=== PATIENT | female | born 1930 | race Caucasian/White ===

== ENCOUNTER → 2017-07-19 | Outpatient (CLI) | payer MEDICARE ==
[2017-07-23 19:48] LABS: Large VLDL Particle Number,NMR 3.6 nmol/L (<=2.7)
== END | disposition home or self-care (01) ==
LOC: LABWHC1 10:32
PROVIDERS: ATTEND Internal Medicine Cardiovascular Disease
DX: I25.10 Atherosclerotic heart disease of native coronary artery without angina pectoris (principal)
CPT/HCPCS: 36415; 83704

== ENCOUNTER 2020-03-26 06:18 | Inpatient (IN) | payer MEDICARE ==
[2020-03-26] MEDS ORDERED: MORPHINE SULFATE 2 MG/ML SYRINGE IVP STA (06:40)
[2020-03-26] MEDS ORDERED: SODIUM CHLORIDE 0.9% 500 ML 500 ML IV STA ×2 (06:40→08:09)
[2020-03-26] MEDS ORDERED: ONDANSETRON 4 MG/2 ML VIAL IVP STA (06:41)
--- NOTE | 2020-03-26 06:59 | ED ---
General Adult HPI - General Chief complaint: Weakness Stated complaint: Hip Pain, Weakness Time Seen by Provider: 03/26/20 06:24 Source: family, EMS, RN notes reviewed Mode of arrival: EMS Limitations: altered mental status - History of Present Illness Initial comments: 89-year-old female with a past medical history of dementia presents to the emergency department for a chief complaint of left hip pain. Patient has had left hip pain and had difficulty ambulating on the left hip since yesterday. Patient did not have any known falls yesterday but did fall about 2 weeks ago. She did not have any hip pain and has been ambulating since that time. Daughter also states the patient has a history of dementia and has worsened dramatically in the past several months. States she has been seeing primary care for this and has an appointment with a neurologist in April. Patient also recently was tested for urinary tract infection and this was negative.Patient has no other complaints at this time including shortness of breath, chest pain, abdominal pain, nausea or vomiting, headache, or visual changes. - Related Data Allergies Allergy/AdvReac Type Severity Reaction Status Date / Time dexamethasone [From Decadron] Allergy Unknown Verified 03/26/20 06:30 codeine AdvReac Nausea Verified 03/26/20 06:30 Review of Systems ROS Statement: Those systems with pertinent positive or pertinent negative responses have been documented in the HPI. ROS Other: All systems not noted in ROS Statement are negative. Past Medical History Past Medical History: Coronary Artery Disease (CAD), Dementia Additional Past Medical History / Comment(s): stents, adrenal insufficiency with crisis 2016, polymyalgia General Exam Limitations: altered mental status General appearance: alert, in no apparent distress Head exam: Present: atraumatic, normocephalic, normal inspection Eye exam: Present: normal appearance, PERRL, EOMI. Absent: scleral icterus, conjunctival injection, periorbital swelling ENT exam: Present: normal exam, mucous membranes moist Neck exam: Present: normal inspection, full ROM. Absent: tenderness, meningismus, lymphadenopathy Respiratory exam: Present: normal lung sounds bilaterally. Absent: respiratory distress, wheezes, rales, rhonchi, stridor Cardiovascular Exam: Present: regular rate, normal rhythm, normal heart sounds. Absent: systolic murmur, diastolic murmur, rubs, gallop, clicks Extremities exam: Present: tenderness (Tenderness to the lateral aspect of the left hip.), normal capillary refill (Capillary refill less than 2 seconds in the left lower extremities. DP pulses 2+ in the left lower external he.). Absent: normal inspection, full ROM (Limited range of motion of the left hip secondary to pain. Patient has pain with flexion of the left hip as well as inversion or eversion.), pedal edema, joint swelling (I do not see any edema of the left lower extremity.), calf tenderness Course Vital Signs 03/26/20 03/26/20 03/26/20 06:18 07:41 08:59 Temperature 98.1 F 98.4 F Pulse Rate 95 77 86 Respiratory 18 16 16 Rate Blood Pressure 178/78 158/68 159/76 O2 Sat by Pulse 96 97 97 Oximetry EKG Findings - EKG Comments: EKG Findings:: Normal sinus rhythm, PACs, ventricular rate 79, NM interval 166, QRS duration 142, QTC 493, left bundle branch block Medical Decision Making - Medical Decision Making Vitals are stable. CBC unremarkable. CMP does show evidence of dehydration with a BUN to creatinine ratio of 65, patient given fluids. Urinalysis does show evidence of infection with 44 white blood cells. Patient treated with Rocephin. Urine culture pending. EKG did show evidence of a left bundle branch block however patient does not have any ACS symptoms. Likely chronic. Initially chest x-ray and hip x-ray were obtained. Chest x-ray showed no evidence for acute pulmonary disease. Hip and pelvis x-ray showed no acute fracture or dislocation. Attempted and the patient and she was unable to bear weight on the left leg. Therefore CT of the left hip was obtained due to concern for occult fracture as patient may have fallen given her history of dementia and not told her daughter. However no fracture evident. Patient's daughter also concerned for possible DVT of the left leg given that patient has had some edema of the left leg throughout the day and the past couple weeks however ultrasound showed no evidence for DVT. After multiple pain medications again attempted to the patient and she is unable to bear weight on the left leg. Patient is high risk for falls. Daughter is concerned that she will not be able to care for patient in that she will require rehabilitation. At this time patient will be admitted for inability to ambulate, dehydration, urinary tract infection. - Lab Data Result diagrams: 03/26/20 06:57 03/26/20 06:57 Lab Results 03/26/20 03/26/20 03/26/20 Range/Units 06:57 06:57 06:57 WBC 9.8 (3.8-10.6) k/uL RBC 4.17 (3.80-5.40) m/uL Hgb 12.5 (11.4-16.0) gm/dL Hct 37.6 (34.0-46.0) % MCV 90.2 (80.0-100.0) fL MCH 30.1 (25.0-35.0) pg MCHC 33.4 (31.0-37.0) g/dL RDW 13.3 (11.5-15.5) % Plt Count 152 (150-450) k/uL Neutrophils % 78 % Lymphocytes % 12 % Monocytes % 7 % Eosinophils % 1 % Basophils % 0 % Neutrophils # 7.7 (1.3-7.7) k/uL Lymphocytes # 1.2 (1.0-4.8) k/uL Monocytes # 0.7 (0-1.0) k/uL Eosinophils # 0.1 (0-0.7) k/uL Basophils # 0.0 (0-0.2) k/uL PT 9.9 (9.0-12.0) sec INR 1.0 (<1.2) APTT 18.4 L (22.0-30.0) sec Sodium (137-145) mmol/L Potassium (3.5-5.1) mmol/L Chloride (98-107) mmol/L Carbon Dioxide (22-30) mmol/L Anion Gap mmol/L BUN (7-17) mg/dL Creatinine (0.52-1.04) mg/dL Est GFR (CKD-EPI)AfAm (>60 ml/min/1.73 sqM) Est GFR (CKD-EPI)NonAf (>60 ml/min/1.73 sqM) Glucose (74-99) mg/dL Calcium (8.4-10.2) mg/dL Magnesium (1.6-2.3) mg/dL Total Bilirubin (0.2-1.3) mg/dL AST (14-36) U/L ALT (4-34) U/L Alkaline Phosphatase (38-126) U/L Total Protein (6.3-8.2) g/dL Albumin (3.5-5.0) g/dL Urine Color Yellow Urine Appearance Cloudy H (Clear) Urine pH 5.5 (5.0-8.0) Ur Specific [place] 1.023 (1.001-1.035) Urine Protein Trace H (Negative) Urine Glucose (UA) Negative (Negative) Urine Ketones 1+ H (Negative) Urine Blood Small H (Negative) Urine Nitrite Negative (Negative) Urine Bilirubin Negative (Negative) Urine Urobilinogen <2.0 (<2.0) mg/dL Ur Leukocyte Esterase Large H (Negative) Urine RBC 7 H (0-5) /hpf Urine WBC 44 H (0-5) /hpf Ur Squamous Epith Cells 9 H (0-4) /hpf Hyaline Casts 1 (0-2) /lpf Urine Mucus Rare H (None) /hpf 03/26/20 Range/Units 06:57 WBC (3.8-10.6) k/uL RBC (3.80-5.40) m/uL Hgb (11.4-16.0) gm/dL Hct (34.0-46.0) % MCV (80.0-100.0) fL MCH (25.0-35.0) pg MCHC (31.0-37.0) g/dL RDW (11.5-15.5) % Plt Count (150-450) k/uL Neutrophils % % Lymphocytes % % Monocytes % % Eosinophils % % Basophils % % Neutrophils # (1.3-7.7) k/uL Lymphocytes # (1.0-4.8) k/uL Monocytes # (0-1.0) k/uL Eosinophils # (0-0.7) k/uL Basophils # (0-0.2) k/uL PT (9.0-12.0) sec INR (<1.2) APTT (22.0-30.0) sec Sodium 140 (137-145) mmol/L Potassium 4.0 (3.5-5.1) mmol/L Chloride 109 H (98-107) mmol/L Carbon Dioxide 26 (22-30) mmol/L Anion Gap 5 mmol/L BUN 31 H (7-17) mg/dL Creatinine 0.47 L (0.52-1.04) mg/dL Est GFR (CKD-EPI)AfAm >90 (>60 ml/min/1.73 sqM) Est GFR (CKD-EPI)NonAf 88 (>60 ml/min/1.73 sqM) Glucose 92 (74-99) mg/dL Calcium 8.8 (8.4-10.2) mg/dL Magnesium 1.7 (1.6-2.3) mg/dL Total Bilirubin 1.0 (0.2-1.3) mg/dL AST 86 H (14-36) U/L ALT 22 (4-34) U/L Alkaline Phosphatase 43 (38-126) U/L Total Protein 6.3 (6.3-8.2) g/dL Albumin 3.6 (3.5-5.0) g/dL Urine Color Urine Appearance (Clear) Urine pH (5.0-8.0) Ur Specific [place] (1.001-1.035) Urine Protein (Negative) Urine Glucose (UA) (Negative) Urine Ketones (Negative) Urine Blood (Negative) Urine Nitrite (Negative) Urine Bilirubin (Negative) Urine Urobilinogen (<2.0) mg/dL Ur Leukocyte Esterase (Negative) Urine RBC (0-5) /hpf Urine WBC (0-5) /hpf Ur Squamous Epith Cells (0-4) /hpf Hyaline Casts (0-2) /lpf Urine Mucus (None) /hpf Disposition Clinical Impression: Left hip pain, Polymyalgia rheumatica, Unable to ambulate, Risk for falls, Weakness, UTI (urinary tract infection), Dehydration Disposition: ADMITTED IP TO THIS HOSP Is patient prescribed a controlled substance at d/c from ED?: No Referrals: Paris Dawson DO [Primary Care Provider] - 1-2 days Time of Disposition: 09:07
[2020-03-26 07:12] LABS: Basophils % (A) 0 %; Eosinophils # (A) 0.1 k/uL (0-0.7); Eosinophils % (A) 1 %; HCT 37.6 % (34.0-46.0); HGB 12.5 gm/dL (11.4-16.0); Lymphocytes # (A) 1.2 k/uL (1.0-4.8); Lymphocytes % (A) 12 %; MCH 30.1 pg (25.0-35.0); MCHC 33.4 g/dL (31.0-37.0); MCV 90.2 fL (80.0-100.0); Mean Platelet Volume 9.2; Monocytes # (A) 0.7 k/uL (0-1.0); Monocytes % (A) 7 %; Neutrophils # (A) 7.7 k/uL (1.3-7.7); Neutrophils % (A) 78 %; Platelet Count 152 k/uL (150-450); RBC 4.17 m/uL (3.80-5.40); RDW 13.3 % (11.5-15.5); WBC 9.8 k/uL (3.8-10.6)
[2020-03-26 07:14] LABS: African American GFR (CKD) >90 (>60 ml/min/1.73 sqM); Albumin 3.6 g/dL (3.5-5.0); Anion Gap 5 mmol/L; Calcium 8.8 mg/dL (8.4-10.2); Carbon Dioxide 26 mmol/L (22-30); Chloride 109 mmol/L (98-107); Glucose 92 mg/dL (74-99); Non-African American GFR(CKD) 88 (>60 ml/min/1.73 sqM); Sodium 140 mmol/L (137-145); Total Protein 6.3 g/dL (6.3-8.2)
[2020-03-26 07:15] LABS: AST 86 U/L (14-36); Blood Urea Nitrogen 31 mg/dL (7-17); Magnesium 1.7 mg/dL (1.6-2.3)
[2020-03-26 07:16] LABS: ALT 22 U/L (4-34); Alkaline Phosphatase 43 U/L (38-126); Appearance,Urine Cloudy (Clear); Bilirubin,Urine Negative (Negative); Blood,Urine Small (Negative); Color,Urine Yellow; Glucose,Urine (UA) Negative (Negative); Hyaline Casts,Urine 1 /lpf (0-2); Ketones,Urine 1+ (Negative); Leukocyte Esterase,Urine Large (Negative); Mucus,Urine Rare /hpf; Nitrite,Urine Negative (Negative); PH, Urine 5.5 (5.0-8.0); Protein,Urine Trace (Negative); RBC,Urine 7 /hpf (0-5); Specific Gravity,Urine 1.023 (1.001-1.035); Squamous Epithelial Cell,Urine 9 /hpf (0-4); Urobilinogen,Urine <2.0 mg/dL (<2.0); WBC,Urine 44 /hpf (0-5)
[2020-03-26 07:20] LABS: Prothrombin Time 9.9 sec (9.0-12.0)
[2020-03-26 07:28] LABS: Partial Thromboplastin Time 18.4 sec (22.0-30.0)
--- NOTE | 2020-03-26 07:34 | XR ---
EXAMINATION TYPE: XR chest 2V DATE OF EXAM: 03/26/2020 COMPARISON: NONE HISTORY: Shortness of breath TECHNIQUE: Frontal and lateral views of the chest are obtained. FINDINGS: Scattered senescent parenchymal changes noted. Hyperinflation compatible with COPD. No evidence for infiltrate. No evidence for atelectasis. Heart size is stable. Mediastinal structures are stable and grossly unremarkable. No evidence for hilar prominence. Degenerative changes dorsal spine. IMPRESSION: 1. No evidence for acute pulmonary disease.
--- NOTE | 2020-03-26 07:35 | XR ---
EXAMINATION TYPE: XR Hip LT and AP Pelvis DATE OF EXAM: 03/26/2020 CLINICAL HISTORY: pain TECHNIQUE: Single view the pelvis is submitted. FINDINGS: No evidence for fracture, dislocation or bony lesion. Joint spaces are well-preserved. S I joints appear symmetric. IMPRESSION: 1. No acute fracture or dislocation seen. ICD 10 NO FRACTURE, INITIAL EVALUATION
[2020-03-26] MEDS ORDERED: cefTRIAXone IN SWFI 1,000 MG/10 ML SYRINGE IVP STA (07:43)
--- NOTE | 2020-03-26 08:33 | US ---
EXAMINATION TYPE: US venous doppler duplex LE LT DATE OF EXAM: 03/26/2020 8:19 AM COMPARISON: CLINICAL HISTORY: edema pain. Hx CHF. On blood thinners. Edema. Hip pain. SIDE PERFORMED: Left TECHNIQUE: The lower extremity deep venous system is examined utilizing real time linear array sonog genevieve with graded compression, doppler sonography and color-flow sonography. VESSELS IMAGED: External Iliac Vein (EIV) Common Femoral Vein Deep Femoral Vein Greater Saphenous Vein * Femoral Vein Popliteal Vein Small Saphenous Vein * Proximal Calf Veins (* superficial vessels) Left Leg: Negative for DVT IMPRESSION: No evidence for DVT.
--- NOTE | 2020-03-26 08:45 | CT ---
EXAMINATION TYPE: CT hip LT wo con DATE OF EXAM: 03/26/2020 COMPARISON: None HISTORY: Hip pain, weakness CT DLP: 641.2 mGycm Automated exposure control for dose reduction was used. Unenhanced CT of the left hip was performed i n bone and soft tissue settings submitted. Images are reviewed in the axial, coronal and sagittal pascale dorian. FINDINGS: I do not see evidence for displaced or impacted fracture of the left hip. Mild degenerative joint spa ce narrowing. No soft tissue masses seen. Vacuum disc lumbar spine. IMPRESSION: NO EVIDENCE FOR FRACTURE OR DISLOCATION OF THE LEFT HIP.
[2020-03-26] MEDS ORDERED: KETOROLAC 30 MG/ML 1 ML VIAL IVP STA (08:48)
[2020-03-26] MEDS ORDERED: MORPHINE SULFATE 2 MG/ML SYRINGE IV PRN (08:57)
[2020-03-26] MEDS ORDERED: ONDANSETRON 4 MG/2 ML VIAL IVP PRN (08:57)
[2020-03-26] MEDS ORDERED: ACETAMINOPHEN TAB 325 MG TAB PO PRN ×2 (08:57→14:09)
[2020-03-26] MEDS ORDERED: NALOXONE 0.4 MG/ML 1 ML VIAL IV PRN (08:57)
--- NOTE | 2020-03-26 13:09 | P.CNOR ---
History of Present Illness - [facility] Consult date: 03/26/20 Consult reason: other (Left hip pain) History of present illness: The patient is an 89-year-old female with a past history of CAD, dementia and [place]'s disease who presented to the emergency department with weakness and left hip pain. She is a poor historian due to her dementia. She was found to have a UTI. X-rays of the left hip revealed no fracture and a CT was performed. CT revealed no fracture. The patient does live in her own house with a caregiver. The patient states that she is unable to move the left leg due to pain in the hip. She has not tried to get out of bed since admission. No family is present at the bedside currently but the patient's granddaughter who works in our office states that the caregiver believe she did not fall when she got up in the middle of the night. Orthopedics was consulted for further evaluation of her left hip pain Review of Systems ROS unobtainable: due to mental status Past Medical History Past Medical History: Coronary Artery Disease (CAD), Dementia, Hypertension, Thyroid Disorder, Vascular Disorder Additional Past Medical History / Comment(s): Polymyalgia rheumatica, chronic back pain, adrenal insufficiency/crisis in 2016, daughter states pt had recent GTT with "borderline" result-to have another glucose test to determine if diabetic, irregular heart beat in past, bilateral leg varicosities, hypothyroid, cystocele, diverticular disease, benign colon polyp, hemmorrhoids. History of Any Multi-Drug Resistant Organisms: None Reported Past Surgical History: Appendectomy, Heart Catheterization With Stent, Hysterectomy, Tubal Ligation Additional Past Surgical History / Comment(s): PCI with stents (2) at [facility], colonoscopies/polypectomy-benign, skin mole removal, D&C, L wrist ganglion cystectomy, bilateral cataract removals/lens implants. Additional Past Anesthesia/Blood Transfusion Reaction / Comm: Pt is very "sensitive" to anesthesia. Date of Last Stent Placement:: 2009 Smoking Status: Never smoker - Past Family History Father Family Medical History: Coronary Artery Disease (CAD), Pneumonia Additional Family Medical History / Comment(s): Father lived into his late 70s. Mother Family Medical History: Dementia Additional Family Medical History / Comment(s): Mother lived to be 100. Medications and Allergies Home Medications Medication Instructions Recorded Confirmed Type ALPRAZolam [Xanax] 0.25 mg PO DAILY PRN 03/26/20 03/26/20 History Acetaminophen [Tylenol] 325 mg PO QID PRN 03/26/20 03/26/20 History Aspirin 81 mg PO HS 03/26/20 03/26/20 History Clopidogrel [Plavix] 75 mg PO W/LUNCH 03/26/20 03/26/20 History Ergocalciferol [Vitamin D2] 50,000 unit PO FR@1200 03/26/20 03/26/20 History Fludrocortisone [Florinef] 0.1 mg PO BID-W/MEALS 03/26/20 03/26/20 History Hydrocortisone [Cortef] 5 mg PO W/SUPPER 03/26/20 03/26/20 History Hydrocortisone [Cortef] 10 mg PO BID-W/MEALS@,12 03/26/20 03/26/20 History Levothyroxine Sodium [Synthroid] 62.5 mcg PO MOTUWETH 03/26/20 03/26/20 History Levothyroxine Sodium [Synthroid] 125 mcg PO SUFRSA 03/26/20 03/26/20 History Liothyronine Sodium 50 mcg PO AC-BRKFST 03/26/20 03/26/20 History Melatonin 10 mg PO HS 03/26/20 03/26/20 History Mirtazapine [Remeron] 15 mg PO HS 03/26/20 03/26/20 History Potassium Chloride [Klor-Con 20] 40 meq PO W/LUNCH 03/26/20 03/26/20 History amLODIPine [Norvasc] 2.5 mg PO W/SUPPER 03/26/20 03/26/20 History predniSONE 7.5 mg PO W/BRKFST 03/26/20 03/26/20 History risperiDONE [RisperDAL] 0.25 mg PO HS 03/26/20 03/26/20 History Allergies Allergy/AdvReac Type Severity Reaction Status Date / Time dexamethasone [From Decadron] Allergy Unknown Verified 03/26/20 09:09 codeine AdvReac Nausea Verified 03/26/20 09:09 Physical Examination The patient is a 89 year old female that is no acute distress. She is alert and oriented x1. The patient's head is normocephalic and atraumatic. Exam of the cervical spine reveals no pain upon palpation or range of motion. Exam of the bilateral upper extremities reveal no obvious deformities or pain upon range of motion. There is a bruise on the left forearm. Exam of the right lower extremity reveals no pain upon palpation. Exam of the left lower extremity reveals no obvious deformity No pain upon palpation to the lateral hip. No pain upon logrolling and any range of motion of the leg. Bilateral calves are soft and nontender. Patient has good foot and ankle motion bilaterally. Neurological and circulatory status is intact. Results - Labs Labs: Abnormal Lab Results - Last 24 Hours (Table) 03/26/20 03/26/20 03/26/20 Range/Units 06:57 06:57 06:57 APTT 18.4 L (22.0-30.0) sec Chloride 109 H (98-107) mmol/L BUN 31 H (7-17) mg/dL Creatinine 0.47 L (0.52-1.04) mg/dL AST 86 H (14-36) U/L Urine Appearance Cloudy H (Clear) Urine Protein Trace H (Negative) Urine Ketones 1+ H (Negative) Urine Blood Small H (Negative) Ur Leukocyte Esterase Large H (Negative) Urine RBC 7 H (0-5) /hpf Urine WBC 44 H (0-5) /hpf Ur Squamous Epith Cells 9 H (0-4) /hpf Urine Mucus Rare H (None) /hpf Microbiology - Last 24 Hours (Table) 03/26/20 06:57 Urine Culture - Preliminary Urine,Voided H & H 03/26/20 Range/Units 06:57 Hgb 12.5 (11.4-16.0) gm/dL Hct 37.6 (34.0-46.0) % Coagulation 03/26/20 Range/Units 06:57 INR 1.0 (<1.2) Result Diagrams: 03/26/20 06:57 03/26/20 06:57 - Diagnostic results Hip x-ray: image reviewed (X-ray of the left hip reveals no acute fractures. ) Hip CT: image reviewed (No acute fractures seen on CT. ) Assessment and Plan (1) Left hip pain Current Visit: Yes Status: Acute Code(s): M25.552 - PAIN IN LEFT HIP SNOMED Code(s): 66010409 (2) Risk for falls Current Visit: Yes Status: Acute Code(s): Z91.81 - HISTORY OF FALLING SNOMED Code(s): 565832501 (3) UTI (urinary tract infection) Current Visit: Yes Status: Acute Code(s): N39.0 - URINARY TRACT INFECTION, SITE NOT SPECIFIED SNOMED Code(s): 29458109 (4) Unable to ambulate Current Visit: Yes Status: Acute Code(s): R26.2 - DIFFICULTY IN WALKING, NOT ELSEWHERE CLASSIFIED SNOMED Code(s): 984017940 (5) Weakness Current Visit: Yes Status: Acute Code(s): R53.1 - WEAKNESS SNOMED Code(s): 03326743 Plan: The clinical, x-ray, and CT findings were discussed with the patient. No family was at the bedside today. No acute hip fracture was seen. The patient may continue weightbearing as tolerated to the left lower extremity. Physical therapy will be ordered. The patient may get out of bed as tolerated. We will continue to follow patient closely and make further recommendations as needed.
[2020-03-26] MEDS ORDERED: ALPRAZolam 0.25 MG TAB PO PRN (14:09)
[2020-03-26] MEDS ORDERED: LEVOTHYROXINE 125 MCG TAB PO SCH (14:15)
[2020-03-26] MEDS: POTASSIUM CHLORIDE ER 20 MEQ TAB.ER PO SCH (15:10)
[2020-03-26] MEDS: PANTOPRAZOLE 40 MG/10 ML VIAL IVP SCH (15:10)
[2020-03-26] MEDS: CLOPIDOGREL 75 MG TAB PO SCH (15:10)
[2020-03-26] MEDS: SODIUM CHLORIDE 0.9% 1,000 ML IV SCH (15:11)
[2020-03-26] MEDS: amLODIPine 2.5 MG TAB PO SCH (17:27)
[2020-03-26] MEDS: FLUDROCORTISONE 0.1 MG TAB PO SCH (17:27)
[2020-03-26] MEDS: HYDROCORTISONE 10 MG TAB PO SCH (17:27)
[2020-03-26] MEDS: MIRTAZAPINE 15 MG TAB PO SCH (21:38)
[2020-03-26] MEDS: risperiDONE 0.25 MG TAB PO SCH (21:38)
[2020-03-26] MEDS: ASPIRIN 81 MG PO SCH (21:38)
[2020-03-26] MEDS: MELATONIN 5 MG TABLET PO SCH (21:38)
[2020-03-27] MEDS: SODIUM CHLORIDE 0.9% 1,000 ML IV SCH ×3 (00:18→23:27)
[2020-03-27] MEDS: LEVOTHYROXINE 125 MCG TAB PO SCH (06:05)
[2020-03-27 07:56] LABS: Basophils % (A) 0 %; Eosinophils # (A) 0.1 k/uL (0-0.7); Eosinophils % (A) 1 %; HCT 38.2 % (34.0-46.0); HGB 12.2 gm/dL (11.4-16.0); Lymphocytes # (A) 1.1 k/uL (1.0-4.8); Lymphocytes % (A) 11 %; MCH 28.8 pg (25.0-35.0); MCHC 31.8 g/dL (31.0-37.0); MCV 90.4 fL (80.0-100.0); Mean Platelet Volume 9.5; Monocytes # (A) 0.8 k/uL (0-1.0); Monocytes % (A) 8 %; Neutrophils # (A) 8.2 k/uL (1.3-7.7); Neutrophils % (A) 80 %; Platelet Count 158 k/uL (150-450); RBC 4.22 m/uL (3.80-5.40); RDW 13.4 % (11.5-15.5); WBC 10.2 k/uL (3.8-10.6)
--- NOTE | 2020-03-27 08:00 | P.PN ---
Subjective Progress Note Date: 03/27/20 Principal diagnosis: Left hip pain and inability to ambulate The patient is an 89-year-old female with a past history of CAD, dementia and [place]'s disease who presented to the emergency department with weakness and left hip pain. She is a poor historian due to her dementia. She was found to have a UTI. X-rays of the left hip revealed no fracture and a CT was performed. CT revealed no fracture. The patient does live in her own house with a caregiver. The patient states that she is unable to move the left leg due to pain in the hip. She has not tried to get out of bed since admission. No family is present at the bedside currently but the patient's granddaughter who works in our office states that the caregiver believe she did not fall when she got up in the middle of the night. Orthopedics was consulted for further evaluation of her left hip pain. This morning, per nursing staff, the patient was in more pain. Morphine was given early this morning. PT worked with the patient yesterday and she did not move well secondary to the left hip pain. The patient has been straight cath'd 3 times since yesterday afternoon. The patient is unable to get up to the beds cooper commode at this time. She seems a bit more confused this morning. Objective - Vital Signs Vital signs: Vital Signs Temp 97.9 F 03/27/20 05:44 Pulse 89 03/27/20 05:44 Resp 18 03/27/20 04:20 BP 174/83 03/27/20 05:44 Pulse Ox 93 L 03/27/20 05:44 Intake & Output 03/26/20 03/27/20 03/27/20 18:59 06:59 18:59 Intake Total 360 900 Output Total 600 1050 Balance -240 -150 Weight 64.864 kg Intake: Intake, IV Titration 900 Amount Sodium Chloride 0.9% 1, 900 000 ml @ 75 mls/hr IV . [id number] [facility] Rx#:[id number] Oral 360 Output: Urine 600 1050 Straight 600 1050 Other: Voiding Method Bedpan Bedpan Diaper Diaper # Voids 1 # Bowel Movements 0 - Exam The patient is a 89 year old female that is no acute distress. She is alert and oriented x1. The patient's head is normocephalic and atraumatic. Exam of the cervical spine reveals no pain upon palpation or range of motion. Exam of the bilateral upper extremities reveal no obvious deformities or pain upon range of motion. There is a bruise on the left forearm. Exam of the right lower extremity reveals no pain upon palpation. Exam of the left lower extremity reveals no obvious deformity There is mild pain upon palpation to the lateral hip. Pain upon logrolling and any range of motion of the leg but she is unable to tell where the pain is exactly. Bilateral calves are soft and nontender. Patient has good foot and ankle motion bilaterally. Neurological and circulatory status is intact. - Labs CBC & Chem 7: 03/27/20 06:49 03/26/20 06:57 Labs: Abnormal Lab Results - Last 24 Hours (Table) 03/27/20 Range/Units 06:49 Neutrophils # 8.2 H (1.3-7.7) k/uL Microbiology - Last 24 Hours (Table) 03/26/20 06:57 Urine Culture - Preliminary Urine,Voided Assessment and Plan (1) Left hip pain Current Visit: Yes Status: Acute Code(s): M25.552 - PAIN IN LEFT HIP SNOMED Code(s): 58708891 (2) Risk for falls Current Visit: Yes Status: Acute Code(s): Z91.81 - HISTORY OF FALLING SNOMED Code(s): 667360171 (3) UTI (urinary tract infection) Current Visit: Yes Status: Acute Code(s): N39.0 - URINARY TRACT INFECTION, SITE NOT SPECIFIED SNOMED Code(s): 52558785 (4) Unable to ambulate Current Visit: Yes Status: Acute Code(s): R26.2 - DIFFICULTY IN WALKING, NOT ELSEWHERE CLASSIFIED SNOMED Code(s): 720675955 (5) Weakness Current Visit: Yes Status: Acute Code(s): R53.1 - WEAKNESS SNOMED Code(s): 87785259 Plan: The clinical, x-ray, and CT findings were discussed with the patient. No family was at the bedside today. No acute hip fracture was seen. The patient may continue weightbearing as tolerated to the left lower extremity. Continue PT. The patient may get out of bed as tolerated. Ultram will be ordered for pain control. We will continue to follow patient closely and make further recommendations as needed.
[2020-03-27 08:25] LABS: African American GFR (CKD) >90 (>60 ml/min/1.73 sqM); Anion Gap 4 mmol/L; Blood Urea Nitrogen 18 mg/dL (7-17); Calcium 8.4 mg/dL (8.4-10.2); Carbon Dioxide 30 mmol/L (22-30); Chloride 106 mmol/L (98-107); Glucose 82 mg/dL (74-99); Non-African American GFR(CKD) 86 (>60 ml/min/1.73 sqM); Sodium 140 mmol/L (137-145)
[2020-03-27] MEDS ORDERED: cefTRIAXone IN SWFI 1,000 MG/10 ML SYRINGE IVP SCH (09:00)
[2020-03-27] MEDS: PANTOPRAZOLE 40 MG/10 ML VIAL IVP SCH (09:14)
[2020-03-27] MEDS: POTASSIUM CHLORIDE ER 20 MEQ TAB.ER PO SCH (14:00)
[2020-03-27] MEDS: CLOPIDOGREL 75 MG TAB PO SCH (14:01)
[2020-03-27] MEDS: traMADol 50 MG TAB PO PRN (14:01)
[2020-03-27] MEDS: FLUDROCORTISONE 0.1 MG TAB PO SCH ×2 (14:02→17:40)
[2020-03-27] MEDS: predniSONE 2.5 MG TAB PO SCH (14:02)
[2020-03-27] MEDS: LIOTHYRONINE SODIUM 5 MCG TAB PO SCH (14:02)
[2020-03-27] MEDS: HYDROCORTISONE 10 MG TAB PO SCH ×3 (14:03→17:41)
[2020-03-27] MEDS: amLODIPine 2.5 MG TAB PO SCH (17:41)
[2020-03-27] MEDS: risperiDONE 0.25 MG TAB PO SCH (21:27)
[2020-03-27] MEDS: ASPIRIN 81 MG PO SCH (21:28)
[2020-03-27] MEDS: MELATONIN 5 MG TABLET PO SCH (21:28)
[2020-03-27] MEDS: MIRTAZAPINE 15 MG TAB PO SCH (21:28)
[2020-03-28] MEDS: FLUDROCORTISONE 0.1 MG TAB PO SCH ×2 (07:52→16:37)
[2020-03-28] MEDS: predniSONE 2.5 MG TAB PO SCH (07:52)
[2020-03-28] MEDS: LEVOTHYROXINE 125 MCG TAB PO SCH (07:52)
[2020-03-28] MEDS: HYDROCORTISONE 10 MG TAB PO SCH ×3 (07:53→16:36)
[2020-03-28] MEDS: LIOTHYRONINE SODIUM 5 MCG TAB PO SCH (07:59)
[2020-03-28] MEDS: PANTOPRAZOLE 40 MG/10 ML VIAL IVP SCH (08:06)
--- NOTE | 2020-03-28 08:35 | P.HPIM ---
History of Present Illness H&P Date: 03/27/20 Chief Complaint: hip pain, AMS Monica Prescott is an 89-year-old female with a past history of CAD, dementia and Cipriano's disease who presented to the emergency department with weakness and left hip pain. She is a poor historian due to her dementia. On presentation her vitals and labs were stable, UA with evidence of UTI. X-rays of the left hip revealed no fracture and a CT was performed. CT revealed no fracture. The patient does live in her own house with a caregiver. The patient states that she is unable to move the left leg due to pain in the hip. She has not tried to get out of bed since admission. Review of Systems ROS unobtainable: due to mental status Past Medical History Past Medical History: Coronary Artery Disease (CAD), Dementia, Hypertension, Thyroid Disorder, Vascular Disorder Additional Past Medical History / Comment(s): Polymyalgia rheumatica, chronic back pain, adrenal insufficiency/crisis in 2016, daughter states pt had recent GTT with "borderline" result-to have another glucose test to determine if diabetic, irregular heart beat in past, bilateral leg varicosities, hypothyroid, cystocele, diverticular disease, benign colon polyp, hemmorrhoids. History of Any Multi-Drug Resistant Organisms: None Reported Past Surgical History: Appendectomy, Heart Catheterization With Stent, Hyster ectomy, Tubal Ligation Additional Past Surgical History / Comment(s): PCI with stents (2) at [facility], colonoscopies/polypectomy-benign, skin mole removal, D&C, L wrist ganglion cystectomy, bilateral cataract removals/lens implants. Additional Past Anesthesia/Blood Transfusion Reaction / Comment(s): Pt is very "sensitive" to anesthesia. Date of Last Stent Placement:: 2009 Smoking Status: Never smoker - Past Family History Father Family Medical History: Coronary Artery Disease (CAD), Pneumonia Additional Family Medical History / Comment(s): Father lived into his late 70s. Mother Family Medical History: Dementia Additional Family Medical History / Comment(s): Mother lived to be 100. Medications and Allergies Home Medications Medication Instructions Recorded Confirmed Type ALPRAZolam [Xanax] 0.25 mg PO DAILY PRN 03/26/20 03/26/20 History Acetaminophen [Tylenol] 325 mg PO QID PRN 03/26/20 03/26/20 History Aspirin 81 mg PO HS 03/26/20 03/26/20 History Clopidogrel [Plavix] 75 mg PO W/LUNCH 03/26/20 03/26/20 History Ergocalciferol [Vitamin D2] 50,000 unit PO FR@1200 03/26/20 03/26/20 History Fludrocortisone [Florinef] 0.1 mg PO BID-W/MEALS 03/26/20 03/26/20 History Hydrocortisone [Cortef] 5 mg PO W/SUPPER 03/26/20 03/26/20 History Hydrocortisone [Cortef] 10 mg PO BID-W/MEALS@07,12 03/26/20 03/26/20 History Levothyroxine Sodium [Synthroid] 62.5 mcg PO MOTUWETH 03/26/20 03/26/20 History Levothyroxine Sodium [Synthroid] 125 mcg PO SUFRSA 03/26/20 03/26/20 History Liothyronine Sodium 50 mcg PO AC-BRKFST 03/26/20 03/26/20 History Melatonin 10 mg PO HS 03/26/20 03/26/20 History Mirtazapine [Remeron] 15 mg PO HS 03/26/20 03/26/20 History Potassium Chloride [Klor-Con 20] 40 meq PO W/LUNCH 03/26/20 03/26/20 History amLODIPine [Norvasc] 2.5 mg PO W/SUPPER 03/26/20 03/26/20 History predniSONE 7.5 mg PO W/BRKFST 03/26/20 03/26/20 History risperiDONE [RisperDAL] 0.25 mg PO HS 03/26/20 03/26/20 History Allergies Allergy/AdvReac Type Severity Reaction Status Date / Time dexamethasone [From Decadron] Allergy Unknown Verified 03/26/20 09:09 codeine AdvReac Nausea Verified 03/26/20 09:09 Physical Exam Vitals: Vital Signs Temp Pulse Resp BP Pulse Ox 03/28/20 05:04 97.9 F 93 18 169/96 98 03/27/20 20:55 98.2 F 77 18 135/86 93 L 03/27/20 13:52 98.8 F 98 17 139/67 96 Intake and Output 03/27/20 03/28/20 03/28/20 22:59 06:59 14:59 Intake Total 600 Output Total 1000 1225 Balance -1000 -625 Intake: Intake, IV Titration 600 Amount Sodium Chloride 0.9% 1, 600 000 ml @ 75 mls/hr IV . [id number] [facility] Rx#:[id number] Output: Urine 1000 1225 Other: Voiding Method Indwelling Catheter General: elderly white female in NAD. Vitals reviewed Eyes: PERRL, EOMI, conjunctiva normal HENT: normocephalic, mucus membranes moist Neck: supple, no JVD Lungs: normal respiratory effort, no wheezes or rales CV: Regular rate and rhythm, no murmur. Peripheral pulses 2+ Abdomen: soft, nondistended, no organomegaly Lymph: no cervical or axillary LAD Skin: warm and dry. Neuro: Oriented to self. No focal neurological deficits Results CBC & Chem 7: 03/27/20 06:49 03/27/20 06:49 Labs: Microbiology - Last 24 Hours (Table) 03/26/20 06:57 Urine Culture - Final Urine,Voided Thrombosis Risk Factor Assmnt - Choose All That Apply Any of the Below Risk Factors Present?: Yes Other Risk Factors: Yes Each Risk Factor Represents 3 Points: Age 75 years or older Other congenital or acquired thrombophilia - If yes, enter type in comment: No Thrombosis Risk Factor Assessment Total Risk Factor Score: 3 Thrombosis Risk Factor Assessment Level: Moderate Risk Assessment and Plan (1) Altered mental status Current Visit: Yes Status: Acute Code(s): R41.82 - ALTERED MENTAL STATUS, UNSPECIFIED SNOMED Code(s): 708213612 (2) Left hip pain Current Visit: Yes Status: Acute Code(s): M25.552 - PAIN IN LEFT HIP SNOMED Code(s): 39331810 (3) UTI (urinary tract infection) Current Visit: Yes Status: Acute Code(s): N39.0 - URINARY TRACT INFECTION, SITE NOT SPECIFIED SNOMED Code(s): 98847708 (4) Weakness Current Visit: Yes Status: Acute Code(s): R53.1 - WEAKNESS SNOMED Code(s): 98843673 (5) Alzheimer's dementia Current Visit: Yes Status: Acute Code(s): G30.9 - ALZHEIMER'S DISEASE, UNSPECIFIED; F02.80 - DEMENTIA IN OTH DISEASES CLASSD ELSWHR W/O BEHAVRL DISTURB SNOMED Code(s): 68837508 Plan: 1. Altered mental status. Likely multifactorial due to underlying dementia with acute hip pain and UTI. Treat with rocephin, schedule tylenol 2. Acute L hip pain. XR and CT negative for fracture. Ortho consult 3. HTN. Continue norvasc 4. Dementia. Continue xanax and risperdal 5. Adrenal insufficiency. Continue cortef
--- NOTE | 2020-03-28 09:06 | P.PN ---
Subjective Progress Note Date: 03/28/20 Principal diagnosis: Left hip pain and inability to ambulate The patient is an 89-year-old female with a past history of CAD, dementia and Cocke's disease who presented to the emergency department with weakness and left hip pain. She is a poor historian due to her dementia. She was found to have a UTI. X-rays of the left hip revealed no fracture and a CT was performed. CT revealed no fracture. The patient does live in her own house with a caregiver. The patient states that she is unable to move the left leg due to pain in the hip. She has not tried to get out of bed since admission. No family is present at the bedside currently but the patient's granddaughter who works in our office states that the caregiver believe she did not fall when she got up in the middle of the night. Orthopedics was consulted for further evaluation of her left hip pain. This morning, the patient appears more comfortable. PT worked with the patient yesterday and she did not move well secondary to the left hip pain. A de paz was placed yesterday. The patient is unable to get up to the bedside commode at this time. She is still quite confused this morning. She complains more of burning in the left leg this morning. Objective - Vital Signs Vital signs: Vital Signs Temp 97.9 F 03/28/20 05:04 Pulse 93 03/28/20 05:04 Resp 18 03/28/20 05:04 BP 169/96 03/28/20 05:04 Pulse Ox 98 03/28/20 05:04 Intake & Output 03/27/20 03/28/20 03/28/20 18:59 06:59 18:59 Intake Total 600 Output Total 900 2225 Balance -900 -1625 Intake: Intake, IV Titration 600 Amount Sodium Chloride 0.9% 1, 600 000 ml @ 75 mls/hr IV . [id number] [facility] Rx#:[id number] Output: Urine 900 2225 Other: Voiding Method Indwelling Catheter - Exam The patient is a 89 year old female that is no acute distress. She is alert and oriented x1. The patient's head is normocephalic and atraumatic. Exam of the cervical spine reveals no pain upon palpation or range of motion. Exam of the bilateral upper extremities reveal no obvious deformities or pain upon range of motion. There is a bruise on the left forearm. Exam of the right lower extremity reveals no pain upon palpation. Exam of the left lower extremity reveals no obvious deformity There is mild pain upon palpation to the lateral hip and left SI joint/buttock. Pain upon logrolling and any range of motion of the leg but she is unable to tell where the pain is exactly. She is able to lift her legs off the bed independently. Bilateral calves are soft and no ntender. Patient has good foot and ankle motion bilaterally. Neurological and circulatory status is intact. - Labs CBC & Chem 7: 03/30/20 07:02 03/30/20 07:02 Labs: Microbiology - Last 24 Hours (Table) 03/26/20 06:57 Urine Culture - Final Urine,Voided Assessment and Plan (1) Left hip pain Current Visit: Yes Status: Acute Code(s): M25.552 - PAIN IN LEFT HIP SNOMED Code(s): 15860849 (2) Risk for falls Current Visit: Yes Status: Acute Code(s): Z91.81 - HISTORY OF FALLING SNOMED Code(s): 044156021 (3) UTI (urinary tract infection) Current Visit: Yes Status: Acute Code(s): N39.0 - URINARY TRACT INFECTION, SITE NOT SPECIFIED SNOMED Code(s): 66560864 (4) Unable to ambulate Current Visit: Yes Status: Acute Code(s): R26.2 - DIFFICULTY IN WALKING, NOT ELSEWHERE CLASSIFIED SNOMED Code(s): 672258898 (5) Weakness Current Visit: Yes Status: Acute Code(s): R53.1 - WEAKNESS SNOMED Code(s): 06837724 (6) Sciatica Current Visit: Yes Status: Acute Code(s): M54.30 - SCIATICA, UNSPECIFIED SIDE SNOMED Code(s): 90390446 Plan: The clinical, x-ray, and CT findings were discussed with the patient. No family was at the bedside today. No acute hip fracture was seen. The pain in the lower back/SI joint area and the pain and burning down the leg appears to be more sciatica pain at this time. The patient may continue weightbearing as tolerated to the left lower extremity. Continue PT. The patient may get out of bed as tolerated. Ultram will be ordered for pain control. We will continue to follow patient closely and make further recommendations as needed.
--- NOTE | 2020-03-28 10:05 | CDI ---
Documentation Clarification Form Date: 03/28/2020 09:34:57 AM From: Lorna Martínez RN CCDS Admit Date: 03/26/2020 09:56:00 AM Patient Name: Monica Prescott Visit Number: [id number] Discharge Date: ATTENTION: The Clinical Documentation Specialists (CDI) and [facility] Coding Staff appreciate your assistance in clarifying documentation. Please respond to the clarification below the line at the bottom and electronically sign. The CDI & [facility] Coding staff will review the response and follow-up if needed. Please note: Queries are made part of the Legal Health Record. If you have any questions, please contact the author of this message via ITS. Dr. Hayes Patton Altered Mental Status was documented in the H&P History/Risk Factors: 89-year-old female presents to the ED with weakness and left hip pain. Medical History: CAD; Dementia and HTN Clinical Indicators: 03/27 H&P: Altered mental status. Likely multifactorial due to underlying dementia with acute hip pain and UTI. 03/26 VSS: B/P: 178/78; HR: 95; Temp: 98.1; RR 18; SpO2: 96% room air 03/26 Lab: UA- Leukocyte esterase Large, Wbc 44, Rbc 7 03/26 CT DLP: No evidence for fracture or dislocation of the left hip. 03/27: Ortho Progress Note: This morning, per nursing staff, the patient was in more pain. Morphine was given early this morning. Pt worked with the patient yesterday and she did not move well secondary to left hip pain. Treatment: 03/26 Rocephin Iv Daily; 03/26 Morphine Ivp Q4HR PRN; 03/27 Ultram ordered 7 In your professional opinion, please clarify the etiology of the Altered Mental Status, if known. Metabolic Encephalopathy due to UTI Metabolic Encephalopathy due to (please specify) Other condition (please specify) Unable to determine (Last Revision: December 2017) Metabolic Encephalopathy due to UTI MTDD
[2020-03-28] MEDS ORDERED: ERGOCALCIFEROL 50,000 UNIT CAP PO SCH (12:00)
[2020-03-28] MEDS: SODIUM CHLORIDE 0.9% 1,000 ML IV SCH (13:28)
[2020-03-28] MEDS: CLOPIDOGREL 75 MG TAB PO SCH (13:39)
[2020-03-28] MEDS: POTASSIUM CHLORIDE ER 20 MEQ TAB.ER PO SCH (13:40)
[2020-03-28] MEDS ORDERED: Potassium Replacement Protocol 1 EACH MISC MISCELLANE PRN (14:37)
[2020-03-28] MEDS ORDERED: Magnesium Replacement Protocol 1 EACH MISC MISCELLANE PRN ×2 (14:37→15:40)
--- NOTE | 2020-03-28 15:48 | P.PN ---
Subjective Progress Note Date: 03/28/20 Monica Prescott is an 89-year-old female with a past history of CAD, dementia and Lafayette's disease who presented to the emergency department with weakness and left hip pain. She is a poor historian due to her dementia. On presentation her vitals and labs were stable, UA with evidence of UTI. X-rays of the left hip revealed no fracture and a CT was performed. CT revealed no fracture. The patient does live in her own house with a caregiver. The patient states that she is unable to move the left leg due to pain in the hip. She has not tried to get out of bed since admission. 03/28/2020 maintained on IV antibiotics for UTI, significant clinical improvement. Afebrile, normal WBC. Sensorium improving; granddaughter at bedside states patient still has increased confusion, not at baseline. Patient reports she did not sleep well. Good diet intake with no nausea vomiting or diarrhea. Denies abdominal pain. Multiple straight cath with bladder scans are greater than 400 yesterday and now has Díaz catheter secondary to the urinary retention. Maintained on IV fluid hydration, hypertensive. Hypokalemic, potassium 3. Eyes any chest pain, palpitations or shortness of breath. Objective - Vital Signs Vital signs: Vital Signs Temp 98.7 F 03/28/20 13:52 Pulse 99 03/28/20 13:52 Resp 16 03/28/20 13:52 BP 175/79 03/28/20 13:52 Pulse Ox 95 03/28/20 13:52 Intake & Output 03/27/20 03/28/20 03/28/20 18:59 06:59 18:59 Intake Total 600 1175 Output Total 900 2225 Balance -900 -1625 1175 Intake: Intake, IV Titration 600 575 Amount Sodium Chloride 0.9% 1, 600 525 000 ml @ 75 mls/hr IV . [id number] [facility] Rx#:[id number] cefTRIAXone 1 gm In 50 Sodium Chloride 0.9% 50 ml @ 100 mls/hr IVPB Q24HR [facility] Rx#:[id number] Oral 600 Output: Urine 900 2225 Other: Voiding Method Indwelling Catheter Indwelling Catheter - Exam General: elderly white female in NAD. Vitals reviewed Eyes: PERRL, EOMI, conjunctiva normal HENT: normocephalic, mucus membranes moist Neck: supple, no JVD Lungs: normal respiratory effort, no wheezes or rales CV: Regular rate and rhythm, no murmur. Peripheral pulses 2+ Abdomen: soft, nondistended, no organomegaly Lymph: no cervical or axillary LAD Skin: warm and dry. Neuro: Oriented to self. Recognizes granddaughter. No focal neurological deficits - Labs CBC & Chem 7: 03/27/20 06:49 03/27/20 06:49 Assessment and Plan Assessment: (1) Altered mental status, acute metabolic encephalopathy secondary to acute UTI Current Visit: Yes Status: Acute Code(s): R41.82 - ALTERED MENTAL STATUS, UNSPECIFIED SNOMED Code(s): 479557431 (2) acute Left hip pain, x-ray and CT negative for fracture, orthopedic surgery following Current Visit: Yes Status: Acute Code(s): M25.552 - PAIN IN LEFT HIP SNOMED Code(s): 57413580 (3)Acute UTI (urinary tract infection) Current Visit: Yes Status: Acute Code(s): N39.0 - URINARY TRACT INFECTION, SITE NOT SPECIFIED SNOMED Code(s): 57348603 (4) Weakness Current Visit: Yes Status: Acute Code(s): R53.1 - WEAKNESS SNOMED Code(s): 42911815 (5) Alzheimer's dementia Current Visit: Yes Status: Acute Code(s): G30.9 - ALZHEIMER'S DISEASE, UNSPECIFIED; F02.80 - DEMENTIA IN OTH DISEASES CLASSD ELSWHR W/O BEHAVRL DISTURB SNOMED Code(s): 85595407 (6) hypertension (7) adrenal insufficiency (8) urinary retention Plan: Continue on current medication regime ,monitoring and symptomatic treatment. Hypertensive, DC IV fluids, close monitoring of blood pressure. Potassium 3.0 with supplements ordered as per replacement protocol. Magnesium level pending with replacement protocol ordered. PT/OT. Pain management. Discharge planning to subacute rehab tomorrow pending electrolytes within normal limits and blood pressure better controlled. The impression and plan of care has been dictated as directed. : I performed a history and examination of this patient, discussed the same with the dictator. I agree with the dictator's note ,documented as a scribe. Any additional findings or plans will be noted.
[2020-03-28] MEDS: CEPHALEXIN 500 MG CAP PO SCH ×2 (16:34→23:15)
[2020-03-28] MEDS: amLODIPine 2.5 MG TAB PO SCH (16:36)
[2020-03-28] MEDS: MAGNESIUM SULFATE-D5W PMX 1 GM in DEXTROSE/WATER 1 100ML.BAG IVPB SCH ×3 (17:48→20:21)
[2020-03-28] MEDS: POTASSIUM BICARBONATE/CIT AC 20 MEQ TABLET.EFF NG-TUBE SCH ×2 (17:49→18:27)
[2020-03-28] MEDS: risperiDONE 0.25 MG TAB PO SCH (20:21)
[2020-03-28] MEDS: ASPIRIN 81 MG PO SCH (20:21)
[2020-03-28] MEDS: MIRTAZAPINE 15 MG TAB PO SCH (20:21)
[2020-03-28] MEDS: MELATONIN 5 MG TABLET PO SCH (20:21)
[2020-03-28] MEDS: POTASSIUM CHLORIDE 10 MEQ in WATER FOR INJECTION 1 100ML.BAG IVPB SCH ×4 (21:08→23:43)
[2020-03-29] MEDS: POTASSIUM CHLORIDE 10 MEQ in WATER FOR INJECTION 1 100ML.BAG IVPB SCH ×5 (00:56→16:14)
[2020-03-29] MEDS: LEVOTHYROXINE 125 MCG TAB PO SCH (05:34)
[2020-03-29 07:21] LABS: Basophils % (A) 0 %; Eosinophils # (A) 0.1 k/uL (0-0.7); Eosinophils % (A) 1 %; HCT 34.7 % (34.0-46.0); HGB 11.3 gm/dL (11.4-16.0); Lymphocytes # (A) 0.9 k/uL (1.0-4.8); Lymphocytes % (A) 8 %; MCH 28.8 pg (25.0-35.0); MCHC 32.6 g/dL (31.0-37.0); MCV 88.6 fL (80.0-100.0); Mean Platelet Volume 9.9; Monocytes # (A) 0.9 k/uL (0-1.0); Monocytes % (A) 7 %; Neutrophils # (A) 9.5 k/uL (1.3-7.7); Neutrophils % (A) 82 %; Platelet Count 134 k/uL (150-450); RBC 3.92 m/uL (3.80-5.40); RDW 13.1 % (11.5-15.5); WBC 11.6 k/uL (3.8-10.6)
[2020-03-29 07:50] LABS: African American GFR (CKD) >90 (>60 ml/min/1.73 sqM); Anion Gap 7 mmol/L; Blood Urea Nitrogen 16 mg/dL (7-17); Calcium 8.3 mg/dL (8.4-10.2); Carbon Dioxide 26 mmol/L (22-30); Chloride 100 mmol/L (98-107); Glucose 95 mg/dL (74-99); Magnesium 2.3 mg/dL (1.6-2.3); Non-African American GFR(CKD) 84 (>60 ml/min/1.73 sqM); Potassium 3.5 mmol/L (3.5-5.1); Sodium 133 mmol/L (137-145)
--- NOTE | 2020-03-29 08:54 | P.PN ---
Subjective Progress Note Date: 03/29/20 Principal diagnosis: Left leg pain. Left lower extremity radiculopathy. UTI. Mental status changes. Left hip pain and inability to ambulate The patient is an 89-year-old female with a past history of CAD, dementia and Cipriano's disease who presented to the emergency department with weakness and left hip pain. She is a poor historian due to her dementia. She was found to have a UTI. X-rays of the left hip revealed no fracture and a CT was performed. CT revealed no fracture. The patient does live in her own house with a caregiver. The patient states that she is unable to move the left leg due to pain in the hip. She has not tried to get out of bed since admission. No family is present at the bedside currently but the patient's granddaughter who works in our office states that the caregiver believe she did not fall when she got up in the middle of the night. Orthopedics was consulted for further evaluation of her left hip pain. 03/29/2020: This morning, the patient appears more comfortable. PT has worked with the patient and she does not move well secondary to the left hip pain. A de paz was placed. The patient is unable to get up to the bedside commode at this time. She is still quite confused this morning. She continues to complain of pain to the lower extremities. Objective - Vital Signs Vital signs: Vital Signs Temp 97.1 F L 03/29/20 05:00 Pulse 97 03/29/20 05:00 Resp 20 03/29/20 05:00 BP 158/83 03/29/20 05:00 Pulse Ox 96 03/29/20 05:00 Intake & Output 03/28/20 03/29/20 03/29/20 18:59 06:59 18:59 Intake Total 1175 975 Output Total 600 Balance 1175 375 Intake: Intake, IV Titration 575 875 Amount Magnesium Sulfate-D5w Pmx 100 1 gm In Dextrose/Water 1 100ml.bag @ 100 mls/hr IVPB Q1H [facility] Rx#: [id number] Potassium Chloride 10 meq 400 In Water For Injection 1 100ml.bag @ 100 mls/hr IVPB Q1HR [facility] Rx#: [id number] Sodium Chloride 0.9% 1, 525 375 000 ml @ 75 mls/hr IV . [id number] [facility] Rx#:[id number] cefTRIAXone 1 gm In 50 Sodium Chloride 0.9% 50 ml @ 100 mls/hr IVPB Q24HR [facility] Rx#:[id number] Oral 600 100 Output: Urine 600 Other: Voiding Method Indwelling Catheter Indwelling Catheter # Bowel Movements 0 - Exam This is a pleasantly confused 89-year-old female in no acute distress. She is alert with confusion. Exam of the lower extremities reveals minimal swelling. She is able to lift each leg off the bed independently with some pain. There is no pain with logroll bilateral hip. She has full foot and ankle motion bilate rally. Neurovascular status to the lower extremities is grossly intact. - Labs CBC & Chem 7: 03/29/20 06:27 03/29/20 06:27 Labs: Abnormal Lab Results - Last 24 Hours (Table) 03/28/20 03/29/20 03/29/20 Range/Units 14:49 06:27 06:27 WBC 11.6 H (3.8-10.6) k/uL Hgb 11.3 L (11.4-16.0) gm/dL Plt Count 134 L (150-450) k/uL Neutrophils # 9.5 H (1.3-7.7) k/uL Lymphocytes # 0.9 L (1.0-4.8) k/uL Sodium 133 L (137-145) mmol/L Calcium 8.3 L (8.4-10.2) mg/dL Magnesium 1.4 L (1.6-2.3) mg/dL Assessment and Plan (1) Altered mental status Current Visit: Yes Status: Acute Code(s): R41.82 - ALTERED MENTAL STATUS, UNSPECIFIED SNOMED Code(s): 119396684 (2) Alzheimer's dementia Current Visit: Yes Status: Acute Code(s): G30.9 - ALZHEIMER'S DISEASE, UNSPECIFIED; F02.80 - DEMENTIA IN OTH DISEASES CLASSD ELSWHR W/O BEHAVRL DISTURB SNOMED Code(s): 76179119 (3) Left hip pain Current Visit: Yes Status: Acute Code(s): M25.552 - PAIN IN LEFT HIP SNOMED Code(s): 18311716 (4) Risk for falls Current Visit: Yes Status: Acute Code(s): Z91.81 - HISTORY OF FALLING SNOMED Code(s): 454279315 (5) Sciatica Current Visit: Yes Status: Acute Code(s): M54.30 - SCIATICA, UNSPECIFIED EDWINA E SNOMED Code(s): 58112317 (6) UTI (urinary tract infection) Current Visit: Yes Status: Acute Code(s): N39.0 - URINARY TRACT INFECTION, SITE NOT SPECIFIED SNOMED Code(s): 62975814 Plan: The clinical findings are discussed with the patient and nursing staff. Continue with physical therapy to attempt to ambulate. Patient may be up in chair. We'll continue to follow.
[2020-03-29] MEDS: LIOTHYRONINE SODIUM 5 MCG TAB PO SCH (09:17)
[2020-03-29] MEDS: FLUDROCORTISONE 0.1 MG TAB PO SCH ×2 (09:17→17:29)
[2020-03-29] MEDS: HYDROCORTISONE 10 MG TAB PO SCH ×3 (09:17→17:30)
[2020-03-29] MEDS: PANTOPRAZOLE 40 MG TABLET PO SCH (09:18)
[2020-03-29] MEDS: predniSONE 2.5 MG TAB PO SCH (09:18)
[2020-03-29] MEDS: CEPHALEXIN 500 MG CAP PO SCH ×3 (09:19→23:34)
[2020-03-29] MEDS: traMADol 50 MG TAB PO PRN ×2 (09:19→17:39)
[2020-03-29] MEDS: CLOPIDOGREL 75 MG TAB PO SCH (11:44)
[2020-03-29] MEDS: POTASSIUM CHLORIDE ER 20 MEQ TAB.ER PO SCH (11:44)
--- NOTE | 2020-03-29 16:44 | P.PN ---
Subjective Progress Note Date: 03/29/20 Principal diagnosis: Acute metabolic encephalopathy due to UTI Monica Prescott is an 89-year-old female with a past history of CAD, dementia and Cipriano's disease who presented to the emergency department with weakness and left hip pain. She is a poor historian due to her dementia. On presentation her vitals and labs were stable, UA with evidence of UTI. X-rays of the left hi p revealed no fracture and a CT was performed. CT revealed no fracture. The patient does live in her own house with a caregiver. The patient states that she is unable to move the left leg due to pain in the hip. She has not tried to get out of bed since admission. On 03/29/2020 - as per nursing staff report, the patient is still confused. Her daughter states that she is not back to her baseline. Patient is being continued on antibiotics for her UTI. Her vitals have been stable with temperat ure maximum of 98.7, heart rate around high 90s, blood pressure 1 50 x 70 saturating at 96% on room air. Patient seems to be very confused. She is oriented only to name and place. She thinks her family was in an accident and and all of them admitted to the hospital. So review of systems could not be done. Active Medications Acetaminophen (Tylenol Tab) 650 mg PO Q6HR PRN PRN Reason: Mild Pain or Fever > 100.5 Acetaminophen (Tylenol Tab) 325 mg PO QID PRN PRN Reason: Pain Alprazolam (Xanax) 0.25 mg PO DAILY PRN PRN Reason: Anxiety Amlodipine Besylate (Norvasc) 2.5 mg PO W/SUPPER [facility] Last Admin: 03/28/20 16:36 Dose: 2.5 mg Documented by: Aspirin (Aspirin) 81 mg PO HS [facility] Last Admin: 03/28/20 20:21 Dose: 81 mg Documented by: Cephalexin (Keflex) 500 mg PO Q8HR [facility] Last Admin: 03/29/20 09:19 Dose: 500 mg Documented by: Clopidogrel Bisulfate (Plavix) 75 mg PO W/LUNCH [facility] Last Admin: 03/29/20 11:44 Dose: 75 mg Documented by: Ergocalciferol (Vitamin D2) 50,000 unit PO FR@1200 [facility] Last Admin: 03/28/20 13:39 Dose: 50,000 unit Documented by: Fludrocortisone Acetate (Florinef) 0.1 mg PO BID-W/MEALS [facility] Last Admin: 03/29/20 09:17 Dose: 0.1 mg Documented by: Hydrocortisone (Cortef) 5 mg PO W/SUPPER [facility] Last Admin: 03/28/20 16:36 Dose: 5 mg Documented by: Hydrocortisone (Cortef) 10 mg PO BID-W/MEALS@,12 [facility] Last Admin: 03/29/20 11:44 Dose: 10 mg Documented by: Levothyroxine Sodium (Synthroid) 125 mcg PO SUFRSA [facility] Last Admin: 03/29/20 05:34 Dose: Not Given Documented by: Levothyroxine Sodium (Synthroid) 62.5 mcg PO MoTuWeTh@629 [facility] Last Admin: 03/27/20 06:05 Dose: 62.5 mcg Documented by: Liothyronine Sodium (Cytomel) 50 mcg PO -[facility] Last Admin: 03/29/20 09:17 Dose: 50 mcg Documented by: Melatonin (Melatonin) 10 mg PO [facility] Last Admin: 03/28/20 20:21 Dose: 10 mg Documented by: Mirtazapine (Remeron) 15 mg PO [facility] Last Admin: 03/28/20 20:21 Dose: 15 mg Documented by: Miscellaneous Information (Potassium Per Protocol) 1 each MISCELLANE DAILY PRN; Protocol PRN Reason: Per Protocol Miscellaneous Information (Magnesium Per Protocol) 1 each MISCELLANE DAILY PRN; Protocol PRN Reason: Per Protocol Miscellaneous Information (Magnesium Per Protocol) 1 each MISCELLANE DAILY PRN; Protocol PRN Reason: Per Protocol Morphine Sulfate (Morphine Sulfate (Inj)) 2 mg IV Q4HR PRN PRN Reason: Severe Pain Last Admin: 03/27/20 06:14 Dose: 2 mg Documented by: Naloxone HCl (Narcan) 0.2 mg IV Q2M PRN PRN Reason: Opioid Reversal Ondansetron HCl (Zofran) 4 mg IVP Q8HR PRN PRN Reason: Nausea And Vomiting Pantoprazole Sodium (Protonix) 40 mg PO -[facility] Last Admin: 03/29/20 09:18 Dose: 40 mg Documented by: Potassium Chloride (K-Dur 20) 40 meq PO W/LUNCH [facility] Last Admin: 03/29/20 11:44 Dose: 40 meq Documented by: Prednisone () 7.5 mg PO W/BRKFST [facility] Last Admin: 03/29/20 09:18 Dose: 7.5 mg Documented by: Risperidone (Risperdal) 0.25 mg PO HS [facility] Last Admin: 03/28/20 20:21 Dose: 0.25 mg Documented by: Tramadol HCl (Ultram) 50 mg PO QID PRN PRN Reason: Pain Last Admin: 03/29/20 09:19 Dose: 50 mg Documented by: Objective - Vital Signs Vital signs: Vital Signs Temp 98.2 F 03/29/20 11:23 Pulse 91 03/29/20 11:23 Resp 18 03/29/20 11:23 BP 150/76 03/29/20 11:23 Pulse Ox 94 L 03/29/20 11:23 Intake & Output 03/28/20 03/29/20 03/29/20 18:59 06:59 18:59 Intake Total 1175 975 3 Output Total 600 Balance 1175 375 3 Intake: Intake, IV Titration 575 875 3 Amount Magnesium Sulfate-D5w Pmx 100 1 gm In Dextrose/Water 1 100ml.bag @ 100 mls/hr IVPB Q1H [facility] Rx#: [id number] Potassium Chloride 10 meq 400 In Water For Injection 1 100ml.bag @ 100 mls/hr IVPB Q1HR [facility] Rx#: [id number] Potassium Chloride 10 meq 3 In Water For Injection 1 100ml.bag @ 100 mls/hr IVPB Q1HR [facility] Rx#: [id number] Sodium Chloride 0.9% 1, 525 375 000 ml @ 75 mls/hr IV . [id number] [facility] Rx#:[id number] cefTRIAXone 1 gm In 50 Sodium Chloride 0.9% 50 ml @ 100 mls/hr IVPB Q24HR [facility] Rx#:[id number] Oral 600 100 Output: Urine 600 Other: Voiding Method Indwelling Catheter Indwelling Catheter Indwelling Catheter # Bowel Movements 0 - Exam - Exam General: elderly white female, no acute distress, appears to be confused HEENT : Normocephalic. No pallor. No icterus. No JVD. Lungs: Bilateral breath sounds are positive. Diminished at the lower lung bases. Cardiovascular: S1-S2 heard. GI: Abdomen is soft nontender. Normal bowel sounds. Skin: warm and dry. Neuro: Oriented to self. She is confused. No focal neurological deficits on gross exam. - Labs CBC & Chem 7: 03/29/20 06:27 03/29/20 06:27 Labs: Abnormal Lab Results - Last 24 Hours (Table) 03/29/20 03/29/20 Range/Units 06:27 06:27 WBC 11.6 H (3.8-10.6) k/uL Hgb 11.3 L (11.4-16.0) gm/dL Plt Count 134 L (150-450) k/uL Neutrophils # 9.5 H (1.3-7.7) k/uL Lymphocytes # 0.9 L (1.0-4.8) k/uL Sodium 133 L (137-145) mmol/L Calcium 8.3 L (8.4-10.2) mg/dL Assessment and Plan Assessment: ASSESSMENT Acute metabolic encephalopathy secondary to UTI Left hip pain Acute urinary tract infection Alzheimer's dementia Adrenal insufficiency Urinary retention Hypertension Hypokalemia PLAN: Patient to be continued on Keflex for her urinary tract infection. She is still confused and not back to her baseline. Spoke with her daughter who is not comfortable, for her to be discharged today. We'll continue with the current medication regimen. After discussion with the daughter she is a no code. Further recommendations depending on the progress of the patient.
[2020-03-29] MEDS: amLODIPine 2.5 MG TAB PO SCH (17:30)
[2020-03-29] MEDS: risperiDONE 0.25 MG TAB PO SCH (20:00)
[2020-03-29] MEDS: ASPIRIN 81 MG PO SCH (20:00)
[2020-03-29] MEDS: MELATONIN 5 MG TABLET PO SCH (20:00)
[2020-03-29] MEDS: MIRTAZAPINE 15 MG TAB PO SCH (20:00)
[2020-03-30] MEDS: traMADol 50 MG TAB PO PRN (05:47)
[2020-03-30] MEDS: LEVOTHYROXINE 125 MCG TAB PO SCH (05:48)
[2020-03-30 07:26] LABS: Basophils % (A) 0 %; Eosinophils # (A) 0.1 k/uL (0-0.7); Eosinophils % (A) 1 %; HCT 38.2 % (34.0-46.0); Lymphocytes # (A) 1.1 k/uL (1.0-4.8); Lymphocytes % (A) 9 %; MCH 28.3 pg (25.0-35.0); MCHC 31.4 g/dL (31.0-37.0); MCV 90.1 fL (80.0-100.0); Mean Platelet Volume 9.3; Monocytes # (A) 0.7 k/uL (0-1.0); Monocytes % (A) 6 %; Neutrophils # (A) 9.7 k/uL (1.3-7.7); Neutrophils % (A) 82 %; Platelet Count 180 k/uL (150-450); RBC 4.24 m/uL (3.80-5.40); RDW 13.3 % (11.5-15.5); WBC 11.9 k/uL (3.8-10.6)
[2020-03-30 07:35] LABS: African American GFR (CKD) >90 (>60 ml/min/1.73 sqM); Anion Gap 6 mmol/L; Blood Urea Nitrogen 19 mg/dL (7-17); Calcium 8.6 mg/dL (8.4-10.2); Carbon Dioxide 24 mmol/L (22-30); Chloride 105 mmol/L (98-107); Glucose 109 mg/dL (74-99); Non-African American GFR(CKD) 84 (>60 ml/min/1.73 sqM); Potassium 4.2 mmol/L (3.5-5.1); Sodium 135 mmol/L (137-145)
[2020-03-30] MEDS: PANTOPRAZOLE 40 MG TABLET PO SCH (08:19)
[2020-03-30] MEDS: CEPHALEXIN 500 MG CAP PO SCH ×2 (08:19→16:46)
[2020-03-30] MEDS: CLOPIDOGREL 75 MG TAB PO SCH (08:19)
[2020-03-30] MEDS: FLUDROCORTISONE 0.1 MG TAB PO SCH ×2 (08:20→16:47)
[2020-03-30] MEDS: predniSONE 2.5 MG TAB PO SCH (08:20)
[2020-03-30] MEDS: LIOTHYRONINE SODIUM 5 MCG TAB PO SCH (08:21)
[2020-03-30] MEDS: HYDROCORTISONE 10 MG TAB PO SCH ×3 (08:21→16:46)
--- NOTE | 2020-03-30 09:57 | P.PN ---
Subjective Progress Note Date: 03/30/20 Principal diagnosis: Left leg pain. Left lower extremity radiculopathy. UTI. Mental status changes. Left hip pain and inability to ambulate The patient is an 89-year-old female with a past history of CAD, dementia and Cipriano's disease who presented to the emergency department with weakness and left hip pain. She is a poor historian due to her dementia. She was found to have a UTI. X-rays of the left hip revealed no fracture and a CT was performed. CT revealed no fracture. The patient does live in her own house with a caregiver. The patient states that she is unable to move the left leg due to pain in the hip. She has not tried to get out of bed since admission. No family is present at the bedside currently but the patient's granddaughter who works in our office states that the caregiver believe she did not fall when she got up in the middle of the night. Orthopedics was consulted for further evaluation of her left hip pain. 03/29/2020: This morning, the patient appears more comfortable. PT has worked with the patient and she does not move well secondary to the left hip pain. A de paz was placed. The patient is unable to get up to the bedside commode at this time. She is still quite confused this morning. She continues to complain of pain to the lower extremities. 03/30/2020: The patient continues to have significant confusion. She has no new complaints regarding pain today. Vital signs are stable. Objective - Vital Signs Vital signs: Vital Signs Temp 97.4 F L 03/30/20 05:38 Pulse 95 03/30/20 05:38 Resp 20 03/30/20 05:38 BP 169/84 03/30/20 05:38 Pulse Ox 96 03/30/20 05:38 Intake & Output 03/29/20 03/30/20 03/30/20 18:59 06:59 18:59 Intake Total 3 1060 Output Total 750 700 Balance -747 360 Intake: Intake, IV Titration 3 Amount Potassium Chloride 10 meq 3 In Water For Injection 1 100ml.bag @ 100 mls/hr IVPB Q1HR [facility] Rx#: [id number] Oral 1060 Output: Urine 750 700 Other: Voiding Method Indwelling Catheter Indwelling Catheter - Exam This is a pleasantly confused 89-year-old female in no acute distress. She is alert with confusion. Exam of the lower extremities reveals minimal swelling. She is able to lift each leg off the bed independently with some pain. There is no pain with logroll bilateral hip. She has full foot and ankle motion bilaterally. Neurovascular status to the lower extremities is grossly intact. - Labs CBC & Chem 7: 03/30/20 07:02 03/30/20 07:02 Labs: Abnormal Lab Results - Last 24 Hours (Table) 03/30/20 03/30/20 Range/Units 07:02 07:02 WBC 11.9 H (3.8-10.6) k/uL Neutrophils # 9.7 H (1.3-7.7) k/uL Sodium 135 L (137-145) mmol/L BUN 19 H (7-17) mg/dL Glucose 109 H (74-99) mg/dL Assessment and Plan (1) Altered mental status Current Visit: Yes Status: Acute Code(s): R41.82 - ALTERED MENTAL STATUS, UNSPECIFIED SNOMED Code(s): 592625931 (2) Alzheimer's dementia Current Visit: Yes Status: Acute Code(s): G30.9 - ALZHEIMER'S DISEASE, UNSPECIFIED; F02.80 - DEMENTIA IN OTH DISEASES CLASSD ELSWHR W/O BEHAVRL DISTURB SNOMED Code(s): 07368358 (3) Left hip pain Current Visit: Yes Status: Acute Code(s): M25.552 - PAIN IN LEFT HIP SNOMED Code(s): 56158175 (4) Risk for falls Current Visit: Yes Status: Acute Code(s): Z91.81 - HISTORY OF FALLING SNOMED Code(s): 892833226 (5) Sciatica Current Visit: Yes Status: Acute Code(s): M54.30 - SCIATICA, UNSPECIFIED SIDE SNOMED Code(s): 43793199 (6) UTI (urinary tract infection) Current Visit: Yes Status: Acute Code(s): N39.0 - URINARY TRACT INFECTION, SITE NOT SPECIFIED SNOMED Code(s): 39053398 Plan: The clinical findings are discussed with the patient and nursing staff. Continue with physical therapy to attempt to ambulate. Patient may be up in chair. We'll continue to follow.
[2020-03-30 11:28] VITALS: RESP 18
[2020-03-30] MEDS: POTASSIUM CHLORIDE ER 20 MEQ TAB.ER PO SCH (13:00)
--- NOTE | 2020-03-30 15:23 | P.PN ---
Subjective Progress Note Date: 03/30/20 Principal diagnosis: Acute metabolic encephalopathy due to UTI Monica Prescott is an 89-year-old female with a past history of CAD, dementia and Cipriano's disease who presented to the emergency department with weakness and left hip pain. She is a poor historian due to her dementia. On presentation her vitals and labs were stable, UA with evidence of UTI. X-rays of the left hi p revealed no fracture and a CT was performed. CT revealed no fracture. The patient does live in her own house with a caregiver. The patient states that she is unable to move the left leg due to pain in the hip. She has not tried to get out of bed since admission. On 03/29/2020 - as per nursing staff report, the patient is still confused. Her daughter states that she is not back to her baseline. Patient is being continued on antibiotics for her UTI. Her vitals have been stable with temperat ure maximum of 98.7, heart rate around high 90s, blood pressure 1 50 x 70 saturating at 96% on room air. Patient seems to be very confused. She is oriented only to name and place. She thinks her family was in an accident and and all of them admitted to the hospital. So review of systems could not be done. On 03/30/2020- patient is resting comfortably in the bed. She appears to be no acute distress. As per nursing staff report, patient is still confused. Patient thinks that she is at home, and that she wants to talk with her daughter now. Patient denies having any chest pain or difficulty in breathing. On reviewing her vitals, T-max 98.3, heart rate in 90s, blood pressure 150/83, sa turating at 96% on room air. Patient's labs from this morning it been reviewed with white count of 11.9, hemoglobin 12, sodium and affect, potassium 4.2, chloride 105, bicarbonate 24, BUN 19, creatinine 0.54. Active Medications Acetaminophen (Tylenol Tab) 650 mg PO Q6HR PRN PRN Reason: Mild Pain or Fever > 100.5 Acetaminophen (Tylenol Tab) 325 mg PO QID PRN PRN Reason: Pain Alprazolam (Xanax) 0.25 mg PO DAILY PRN PRN Reason: Anxiety Amlodipine Besylate (Norvasc) 2.5 mg PO W/SUPPER [facility] Last Admin: 03/29/20 17:30 Dose: 2.5 mg Documented by: Aspirin (Aspirin) 81 mg PO HS [facility] Last Admin: 03/29/20 20:00 Dose: 81 mg Documented by: Cephalexin (Keflex) 500 mg PO Q8HR [facility] Last Admin: 03/30/20 08:19 Dose: 500 mg Documented by: Clopidogrel Bisulfate (Plavix) 75 mg PO W/LUNCH [facility] Last Admin: 03/30/20 08:19 Dose: 75 mg Documented by: Ergocalciferol (Vitamin D2) 50,000 unit PO FR@1200 [facility] Last Admin: 03/28/20 13:39 Dose: 50,000 unit Documented by: Fludrocortisone Acetate (Florinef) 0.1 mg PO BID-W/MEALS [facility] Last Admin: 03/30/20 08:20 Dose: 0.1 mg Documented by: Hydrocortisone (Cortef) 5 mg PO W/SUPPER [facility] Last Admin: 03/29/20 17:30 Dose: 5 mg Documented by: Hydrocortisone (Cortef) 10 mg PO BID-W/MEALS@07,12 [facility] Last Admin: 03/30/20 13:00 Dose: 10 mg Documented by: Levothyroxine Sodium (Synthroid) 125 mcg PO SUFRSA [facility] Last Admin: 03/30/20 05:48 Dose: 125 mcg Documented by: Levothyroxine Sodium (Synthroid) 62.5 mcg PO MoTuWeTh@0630 [facility] Last Admin: 03/27/20 06:05 Dose: 62.5 mcg Documented by: Liothyronine Sodium (Cytomel) 50 mcg PO AC-BRKFST [facility] Last Admin: 03/30/20 08:21 Dose: 50 mcg Documented by: Melatonin (Melatonin) 10 mg PO [facility] Last Admin: 03/29/20 20:00 Dose: 10 mg Documented by: Mirtazapine (Remeron) 15 mg PO [facility] Last Admin: 03/29/20 20:00 Dose: 15 mg Documented by: Miscellaneous Information (Potassium Per Protocol) 1 each MISCELLANE DAILY PRN; Protocol PRN Reason: Per Protocol Miscellaneous Information (Magnesium Per Protocol) 1 each MISCELLANE DAILY PRN; Protocol PRN Reason: Per Protocol Miscellaneous Information (Magnesium Per Protocol) 1 each MISCELLANE DAILY PRN; Protocol PRN Reason: Per Protocol Morphine Sulfate (Morphine Sulfate (Inj)) 2 mg IV Q4HR PRN PRN Reason: Severe Pain Last Admin: 03/27/20 06:14 Dose: 2 mg Documented by: Naloxone HCl (Narcan) 0.2 mg IV Q2M PRN PRN Reason: Opioid Reversal Ondansetron HCl (Zofran) 4 mg IVP Q8HR PRN PRN Reason: Nausea And Vomiting Pantoprazole Sodium (Protonix) 40 mg PO AC-BRKFST [facility] Last Admin: 03/30/20 08:19 Dose: 40 mg Documented by: Potassium Chloride (K-Dur 20) 40 meq PO W/LUNCH [facility] Last Admin: 03/30/20 13:00 Dose: 40 meq Documented by: Prednisone () 7.5 mg PO W/BRKT [facility] Last Admin: 03/30/20 08:20 Dose: 7.5 mg Documented by: Risperidone (Risperdal) 0.25 mg PO HS [facility] Last Admin: 03/29/20 20:00 Dose: 0.25 mg Documented by: Tramadol HCl (Ultram) 50 mg PO QID PRN PRN Reason: Pain Last Admin: 03/30/20 05:47 Dose: 50 mg Documented by: Objective - Vital Signs Vital signs: Vital Signs Temp 97.4 F L 03/30/20 05:38 Pulse 95 03/30/20 05:38 Resp 20 03/30/20 05:38 BP 169/84 03/30/20 05:38 Pulse Ox 96 03/30/20 05:38 Intake & Output 03/29/20 03/30/20 03/30/20 18:59 06:59 18:59 Intake Total 3 1060 Output Total 750 700 Balance -747 360 Intake: Intake, IV Titration 3 Amount Potassium Chloride 10 meq 3 In Water For Injection 1 100ml.bag @ 100 mls/hr IVPB Q1HR [facility] Rx#: [id number] Oral 1060 Output: Urine 750 700 Other: Voiding Method Indwelling Catheter Indwelling Catheter Indwelling Catheter - Exam - Exam General: elderly white female, no acute distress, appears to be confused HEENT : Normocephalic. No pallor. No icterus. No JVD. Lungs: Bilateral breath sounds are positive. Diminished at the lower lung base s. Cardiovascular: S1-S2 heard. GI: Abdomen is soft nontender. Normal bowel sounds. Skin: warm and dry. Neuro: Oriented to self. She is confused. No focal neurological deficits on gross exam. - Labs CBC & Chem 7: 03/30/20 07:02 03/30/20 07:02 Labs: Abnormal Lab Results - Last 24 Hours (Table) 03/30/20 03/30/20 Range/Units 07:02 07:02 WBC 11.9 H (3.8-10.6) k/uL Neutrophils # 9.7 H (1.3-7.7) k/uL Sodium 135 L (137-145) mmol/L BUN 19 H (7-17) mg/dL Glucose 109 H (74-99) mg/dL Assessment and Plan Assessment: ASSESSMENT Acute metabolic encephalopathy secondary to UTI Left hip pain Acute urinary tract infection Alzheimer's dementia Adrenal insufficiency Urinary retention Hypertension Hypokalemia PLAN: Patient to be continued on Keflex for her urinary tract infection. She is still confused and not back to her baseline. We'll continue with the current medication regimen. Patient is a DO NOT RESUSCITATE. Further recommendations depending on the progress of the patient. Possible discharge to subacute rehab tomorrow.
[2020-03-30] MEDS: amLODIPine 2.5 MG TAB PO SCH (16:47)
[2020-03-30 20:32] VITALS: TEMP 98.7
[2020-03-30] MEDS: risperiDONE 0.25 MG TAB PO SCH (22:43)
[2020-03-30] MEDS: MELATONIN 5 MG TABLET PO SCH (22:50)
[2020-03-30] MEDS: ASPIRIN 81 MG PO SCH (22:50)
[2020-03-30] MEDS: MIRTAZAPINE 15 MG TAB PO SCH (22:50)
[2020-03-31] MEDS: CEPHALEXIN 500 MG CAP PO SCH ×3 (00:57→16:51)
[2020-03-31] MEDS: LEVOTHYROXINE 125 MCG TAB PO SCH (06:13)
[2020-03-31] MEDS: predniSONE 2.5 MG TAB PO SCH (09:28)
[2020-03-31] MEDS: PANTOPRAZOLE 40 MG TABLET PO SCH (09:29)
[2020-03-31] MEDS: LIOTHYRONINE SODIUM 5 MCG TAB PO SCH (09:29)
[2020-03-31] MEDS: HYDROCORTISONE 10 MG TAB PO SCH ×3 (09:30→18:08)
[2020-03-31] MEDS: FLUDROCORTISONE 0.1 MG TAB PO SCH ×2 (09:31→18:08)
--- NOTE | 2020-03-31 09:39 | P.DS ---
Providers Date of admission: 03/26/20 09:56 Expected date of discharge: 03/31/20 Attending physician: Hayes Patton MD Consults: 03/26/20 08:58 Consult Physician Routine Consulting Provider: Landon Singh Consult Reason/Comments: L hip pain, inability to ambulate Do you want consulting provider notified?: Yes Primary care physician: Paris Dawson Hospital Course: Final Diagnoses: (1) Altered mental status, acute metabolic encephalopathy secondary to acute UTI Current Visit: Yes Status: Acute Code(s): R41.82 - ALTERED MENTAL STATUS, UNSPECIFIED SNOMED Code(s): 718779218 (2) acute Left hip pain, x-ray and CT negative for fracture, orthopedic surgery following Current Visit: Yes Status: Acute Code(s): M25.552 - PAIN IN LEFT HIP SNOMED Code(s): 41303831 (3)Acute UTI (urinary tract infection) Current Visit: Yes Status: Acute Code(s): N39.0 - URINARY TRACT INFECTION, SITE NOT SPECIFIED SNOMED Code(s): 20718167 (4) Weakness Current Visit: Yes Status: Acute Code(s): R53.1 - WEAKNESS SNOMED Code(s): 35638689 (5) Alzheimer's dementia Current Visit: Yes Status: Acute Code(s): G30.9 - ALZHEIMER'S DISEASE, UNSPECIFIED; F02.80 - DEMENTIA IN OTH DISEASES CLASSD ELSWHR W/O BEHAVRL DISTURB SNOMED Code(s): 02165885 (6) hypertension (7) adrenal insufficiency (8) urinary retention (9) hypokalemia, resolved Hospital course:Monica Prescott is an 89-year-old female with a past history of CAD, dementia and Cipriano's disease who presented to the emergency department with weakness and left hip pain. She is a poor historian due to her dementia. On presentation her vitals and labs were stable, UA with evidence of UTI. X-rays of the left hip revealed no fracture and a CT was performed. CT revealed no fracture. The patient does live in her own house with a caregiver. The patient states that she is unable to move the left leg due to pain in the hip. She has not tried to get out of bed since admission. 03/28/2020 maintained on IV antibiotics for UTI, significant clinical improvement. Afebrile, normal WBC. Sensorium improving; granddaughter at bedside states patient still has increased confusion, not at baseline. Patient reports she did not sleep well. Good diet intake with no nausea vomiting or diarrhea. Denies abdominal pain. Multiple straight cath with bladder scans are greater than 400 yesterday and now has Díaz catheter secondary to the urinary retention. Maintained on IV fluid hydration, hypertensive. Hypokalemic, potassium 3. Eyes any chest pain, palpitations or shortness of breath. Significant clinical improvement. Norvasc increased to 5 mg. Cleared by orthopedic surgery for discharge. Patient is being discharged to subacute rehab today in a stable condition with guarded prognosis. The impression and plan of care has been dictated as directed. : I performed a history and examination of this patient, discussed the same with the dictator. I agree with the dictator's note ,documented as a scribe. Any additional findings or plans will be noted. Patient Condition at Discharge: Stable Plan - Discharge Summary Discharge Rx Participant: No New Discharge Prescriptions: New Pantoprazole [Protonix] 40 mg PO AC-BRKFST tablet. Acetaminophen Tab [Tylenol] 650 mg PO Q6HR PRN tab PRN Reason: Mild Pain Or Fever > 100.5 traMADol HCl [Ultram] 50 mg PO QID PRN #12 tab PRN Reason: Pain amLODIPine [Norvasc] 5 mg PO W/SUPPER tab Continue Melatonin 10 mg PO HS Aspirin 81 mg PO HS risperiDONE [RisperDAL] 0.25 mg PO HS Mirtazapine [Remeron] 15 mg PO HS Potassium Chloride [Klor-Con 20] 40 meq PO W/LUNCH Fludrocortisone [Florinef] 0.1 mg PO BID-W/MEALS Ergocalciferol [Vitamin D2 (DRISDOL)] 50,000 unit PO FR@1200 predniSONE 7.5 mg PO W/BRKFST Clopidogrel [Plavix] 75 mg PO W/LUNCH Liothyronine Sodium 50 mcg PO AC-BRKFST Hydrocortisone [Cortef] 10 mg PO BID-W/MEALS@07,12 Hydrocortisone [Cortef] 5 mg PO W/SUPPER Levothyroxine Sodium [Synthroid] 62.5 mcg PO MOT[facility] Levothyroxine Sodium [Synthroid] 125 mcg PO SUFRSA Acetaminophen [Tylenol] 325 mg PO QID PRN PRN Reason: Pain ALPRAZolam [Xanax] 0.25 mg PO DAILY PRN #3 tab PRN Reason: Anxiety Discontinued amLODIPine [Norvasc] 2.5 mg PO W/SUPPER Discharge Medication List Acetaminophen [Tylenol] 325 mg PO QID PRN 03/26/20 [History] Aspirin 81 mg PO HS 03/26/20 [History] Clopidogrel [Plavix] 75 mg PO W/LUNCH 03/26/20 [History] Ergocalciferol [Vitamin D2 (DRISDOL)] 50,000 unit PO FR@1200 03/26/20 [History] Fludrocortisone [Florinef] 0.1 mg PO BID-W/MEALS 03/26/20 [History] Hydrocortisone [Cortef] 5 mg PO W/SUPPER 03/26/20 [History] Hydrocortisone [Cortef] 10 mg PO BID-W/MEALS@,12 03/26/20 [History] Levothyroxine Sodium [Synthroid] 62.5 mcg PO MOTUWETH 03/26/20 [History] Levothyroxine Sodium [Synthroid] 125 mcg PO SUFRSA 03/26/20 [History] Liothyronine Sodium 50 mcg PO AC-BRKFST 03/26/20 [History] Melatonin 10 mg PO HS 03/26/20 [History] Mirtazapine [Remeron] 15 mg PO HS 03/26/20 [History] Potassium Chloride [Klor-Con 20] 40 meq PO W/LUNCH 03/26/20 [History] predniSONE 7.5 mg PO W/BRKFST 03/26/20 [History] risperiDONE [RisperDAL] 0.25 mg PO HS 03/26/20 [History] ALPRAZolam [Xanax] 0.25 mg PO DAILY PRN #3 tab 03/31/20 [Rx] Acetaminophen Tab [Tylenol] 650 mg PO Q6HR PRN tab 03/31/20 [Rx] Pantoprazole [Protonix] 40 mg PO AC-BRKFST tablet.dr 03/31/20 [Rx] amLODIPine [Norvasc] 5 mg PO W/SUPPER tab 03/31/20 [Rx] traMADol HCl [Ultram] 50 mg PO QID PRN #12 tab 03/31/20 [Rx] Follow up Appointment(s)/Referral(s): Paris Dawson DO [Primary Care Provider] - 1 Week (After DC from subacute rehab) Activity/Diet/Wound Care/Special Instructions: Roya MALCOLM, BMP in 3 days. Confirm orthopedic follow-up appointment prior to discharge Discharge Disposition: TRANSFER TO SNF/ECF
[2020-03-31 14:17] VITALS: BP 122/67; PULSE 95
[2020-03-31] MEDS: CLOPIDOGREL 75 MG TAB PO SCH (14:51)
[2020-03-31] MEDS: POTASSIUM CHLORIDE ER 20 MEQ TAB.ER PO SCH (14:52)
[2020-03-31] MEDS ORDERED: amLODIPine 5 MG TAB PO SCH (17:30)
== END 2020-03-31 20:01 | DRG 689 ==
LOC: SUPCPDRO 06:18 → EC 06:18 → 5NMEDONC 09:56
PROVIDERS: ADMIT Family Medicine; ATTEND Family Medicine
DX: N39.0 Urinary tract infection, site not specified (principal); G93.41 Metabolic encephalopathy; E27.1 Primary adrenocortical insufficiency; I25.10 Atherosclerotic heart disease of native coronary artery without angina pectoris; F02.80 Dementia in other diseases classified elsewhere, unspecified severity, without behavioral disturbance, psychotic disturbance, mood disturbance, and anxiety; E86.0 Dehydration; E87.6 Hypokalemia; F41.9 Anxiety disorder, unspecified; Z11.59 Encounter for screening for other viral diseases; Z66 Do not resuscitate; G30.9 Alzheimer's disease, unspecified; I10 Essential (primary) hypertension; I44.7 Left bundle-branch block, unspecified; Z96.1 Presence of intraocular lens; M54.10 Radiculopathy, site unspecified; M54.30 Sciatica, unspecified side; M35.3 Polymyalgia rheumatica; Z91.81 History of falling; Z82.49 Family history of ischemic heart disease and other diseases of the circulatory system; Z79.890 Hormone replacement therapy; Z90.710 Acquired absence of both cervix and uterus; Z95.5 Presence of coronary angioplasty implant and graft; Z79.82 Long term (current) use of aspirin; Z88.5 Allergy status to narcotic agent; Z88.8 Allergy status to other drugs, medicaments and biological substances; Z98.42 Cataract extraction status, left eye; Z98.41 Cataract extraction status, right eye; Z90.89 Acquired absence of other organs; Z90.49 Acquired absence of other specified parts of digestive tract; Z98.890 Other specified postprocedural states; Z86.010 Personal history of colon polyps; Z83.6 Family history of other diseases of the respiratory system; Z98.51 Tubal ligation status
CPT/HCPCS: 36415; 71046; 73502; 80048; 80053; 81001; 83735; 84132; 85025; 85610; 85730; 87086; 93005; 96374; 96375; 99285

== ENCOUNTER 2020-04-11 17:45 | Inpatient (IN) | payer MEDICARE ==
[2020-04-11] MEDS ORDERED: SODIUM CHLORIDE 0.9% 500 ML 500 ML IV ONE (17:48)
[2020-04-11] MEDS ORDERED: SODIUM CHLORIDE 0.9% 1,000 ML IV STA (17:48)
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
[2020-04-11 18:19] LABS: Glucose,Whole Blood 138 mg/dL (75-99)
[2020-04-11 18:23] LABS: Basophils # (A) 0.1 k/uL (0-0.2); Basophils % (A) 0 %; Eosinophils # (A) 0.3 k/uL (0-0.7); Eosinophils % (A) 1 %; HCT 43.3 % (34.0-46.0); HGB 13.7 gm/dL (11.4-16.0); Lymphocytes # (A) 0.5 k/uL (1.0-4.8); Lymphocytes % (A) 2 %; MCHC 31.6 g/dL (31.0-37.0); MCV 88.5 fL (80.0-100.0); Mean Platelet Volume 8.7; Monocytes # (A) 0.8 k/uL (0-1.0); Monocytes % (A) 3 %; Neutrophils # (A) 23.9 k/uL (1.3-7.7); Neutrophils % (A) 93 %; Platelet Count 291 k/uL (150-450); WBC 25.6 k/uL (3.8-10.6)
[2020-04-11 18:28] LABS: ALT 37 U/L (4-34); AST 94 U/L (14-36); African American GFR (CKD) >90 (>60 ml/min/1.73 sqM); Albumin 2.9 g/dL (3.5-5.0); Alkaline Phosphatase 92 U/L (38-126); Anion Gap 8 mmol/L; Blood Urea Nitrogen 28 mg/dL (7-17); Calcium 8.7 mg/dL (8.4-10.2); Carbon Dioxide 24 mmol/L (22-30); Chloride 105 mmol/L (98-107); Glucose 133 mg/dL (74-99); Magnesium 1.7 mg/dL (1.6-2.3); Non-African American GFR(CKD) 78 (>60 ml/min/1.73 sqM); Sodium 137 mmol/L (137-145); Total Bilirubin 0.8 mg/dL (0.2-1.3); Total Protein 5.8 g/dL (6.3-8.2)
[2020-04-11 18:33] LABS: INR 1.1 (<1.2); Partial Thromboplastin Time 22.6 sec (22.0-30.0); Prothrombin Time 10.8 sec (9.0-12.0)
[2020-04-11] MEDS ORDERED: cefTRIAXone IN SWFI 1,000 MG/10 ML SYRINGE IVP STA (18:33)
[2020-04-11] MEDS ORDERED: VANCOMYCIN IV PER PHARMACY 1 EACH MISC MISCELLANE PRN (18:35)
[2020-04-11] MEDS ORDERED: VANCOMYCIN 1,250 MG in SODIUM CHLORIDE 0.9% 250 ML IVPB STA (18:37)
[2020-04-11] MEDS ORDERED: KETOROLAC 30 MG/ML 1 ML VIAL IVP STA (18:39)
[2020-04-11 18:40] LABS: Appearance,Urine Clear (Clear); Bilirubin,Urine Negative (Negative); Blood,Urine Small (Negative); Color,Urine Yellow; Glucose,Urine (UA) 1+ (Negative); Ketones,Urine Trace (Negative); Leukocyte Esterase,Urine Trace (Negative); Mucus,Urine Many /hpf; Nitrite,Urine Negative (Negative); Protein,Urine 1+ (Negative); RBC,Urine 11 /hpf (0-5); Squamous Epithelial Cell,Urine <1 /hpf (0-4); WBC,Urine 5 /hpf (0-5)
--- NOTE | 2020-04-11 19:27 | XR ---
EXAMINATION TYPE: XR chest 1V portable DATE OF EXAM: 04/11/2020 COMPARISON: 03/26/2020 INDICATION: Fever TECHNIQUE: Single frontal view of the chest is obtained. Patient is rotated towards left side bent to wards the left FINDINGS: The heart size is normal. The pulmonary vasculature is normal. Minimal increased lung markings are at the right lower lung field could be some atelectasis. IMPRESSION: 1. Minimal right lower lobe subsegmental atelectasis. Early pneumonia could be considered. Follow-up can be performed as clinically indicated.
[2020-04-11] MEDS ORDERED: AZITHROMYCIN 500 MG in SODIUM CHLORIDE 0.9% 250 ML IVPB STA (19:36)
[2020-04-11] MEDS ORDERED: NALOXONE 0.4 MG/ML 1 ML VIAL IV PRN (19:50)
[2020-04-11] MEDS: SODIUM CHLORIDE 0.9% 1,000 ML IV SCH (23:34)
[2020-04-12] MEDS: LEVOTHYROXINE 125 MCG TAB PO SCH (05:22)
[2020-04-12 07:31] LABS: Glucose,Whole Blood 98 mg/dL (75-99)
[2020-04-12] MEDS: PANTOPRAZOLE 40 MG TABLET PO SCH (07:46)
[2020-04-12] MEDS: HYDROCORTISONE 10 MG TAB PO SCH ×3 (07:47→17:38)
[2020-04-12 11:50] LABS: C Reactive Protein 365.9 mg/L (<10.0)
[2020-04-12] MEDS: CLOPIDOGREL 75 MG TAB PO SCH (12:34)
[2020-04-12] MEDS: SODIUM CHLORIDE 0.9% 1,000 ML IV SCH ×2 (12:34→20:09)
[2020-04-12 13:06] VITALS: BMI 22.6
[2020-04-12] MEDS ORDERED: ENOXAPARIN 40 MG/0.4 ML SYRINGE SQ SCH (13:15)
--- NOTE | 2020-04-12 13:56 | HP ---
HISTORY AND PHYSICAL DATE OF SERVICE: 04/12/2020 CHIEF COMPLAINT: Fever, diminished p.o. intake and change in mental status. HISTORY OF PRESENT ILLNESS: This is an 89-year-old woman with a past medical history of CAD, dementia, hypertension, history of polymyalgia rheumatica, chronic back pain, CAD, stent being followed by Dr. Paris Dawson in the outpatient setting, was in [facility] at this time. Apparently the patient is being treated for UTI. The patient had fever and diminished p.o. intake and change in mental status in the ECF and the patient also is confused. The temperature was 100 degrees per EMS and the patient has noted right lower lobe infiltrate. The patient also had elevated white count of 25, and ESR was elevated at 66. D-dimer was found to be 9.56. CT angio has been sought. Covid- 19 testing is pending at this time. LDH is 848 and C-reactive protein is 365. Currently the patient is unable to give a coherent history. Most of the history taken from my discussion with staff and review of the chart at this time. PAST MEDICAL HISTORY: History of CAD, history of dementia, hypertension, history of polymyalgia rheumatica, chronic back pain, DJD. MEDICATIONS: Prior to admission home medications are; 1. Risperdal. 2. Prednisone. 3. Dulcolax. 4. Norvasc. 5. Klor-Con 20. 6. Protonix. 7. Nystatin. 8. Remeron. 9. Melatonin. 10.Megestrol. 11.Megace. 12.Milk of magnesia. 13.Synthroid. 14.Cortef. 15.Drisdol. 16.Plavix. 17.Cipro. 18.Aspirin. 19.Tylenol. 20.Xanax. doses and route were reviewed ALLERGIES: DEXAMETHASONE, CODEINE. FAMILY HISTORY: History of coronary artery disease and pneumonia. SOCIAL HISTORY: Could not be taken at length because of the patient's current mental status. REVIEW OF SYSTEMS: Could not be taken at length because of the patient's current mental status. PHYSICAL EXAM: Patient is conscious, confused. Pulse 91, blood pressure 150/77, respirations 16, temperature 98.7, pulse ox 97% on room air. HEENT: Conjunctivae normal. Oral mucosa moist. NECK: No jugular venous distention. No lymph node enlargement. CARDIOVASCULAR SYSTEMS: S1 and S2 muffled. RESPIRATORY: Breath sounds diminished in the bases, a few scattered rhonchi. No crackles. ABDOMEN: Soft and nontender. LEGS: No edema, no swelling. NERVOUS SYSTEM: Higher functions as mentioned earlier. Moves all 4 limbs. No focal motor or sensory deficits. LYMPHATICS: No lymph nodes in the neck or axilla. SKIN: No rash. JOINTS: No active deforming arthropathy. LABS: At this time shows WBC 25.6 and ESR 66 and D-dimer is 9.56. AST 94, ALT 77. ASSESSMENT: 1. Fever possible right lower lobe pneumonia, possibly gram-negative. 2. Rule out COVID-19 pneumonia. 3. Change in mental status, metabolic encephalopathy acute on chronic. 4. Increased WBC. 5. Elevated ESR and CRP. 6. Elevated D-dimer, rule out pulmonary embolism. 7. Increased AST, ALT, rule out hepatitis. 8. Increased LDH. 9. Hypoalbuminemia with mild protein calorie malnutrition. 10.History of coronary artery disease. 11.Dementia. 12.Hypertension. 13.Hypothyroidism. 14.History of polymyalgia rheumatica. 15.History of chronic back pain. 16.History of borderline glucose tolerance test. 17.History of bilateral leg varicosities. 18.History of coronary artery disease with stent. 19.History of anxiety, depression. 20.Left bundle branch block on the EKG. 21.NO CODE, NO CPR, NO VENT. RECOMMENDATIONS AND DISCUSSION: In this 89-year-old woman who presented with multiple complex medical issues, we will monitor the patient closely. Continue the current management and continue symptomatic treatment. We will initiate broad-spectrum IV antibiotics. Otherwise, will also get Infectious Disease evaluation for possible Covid-19 testing. Prognosis guarded because of multiple complex medical issues. Further recommendations to follow. See orders for further details. MMODL / IJN: [id number] / MTDD
--- NOTE | 2020-04-12 14:37 | CT ---
EXAMINATION TYPE: CT angio chest DATE OF EXAM: 04/12/2020 COMPARISON: Positive d-dimer. Chest pain. HISTORY: Elevated d-dimer CT DLP: 300.5 mGycm Automated exposure control for dose reduction was used. CONTRAST: Performed with IV Contrast, patient injected with 100 mL of Isovue 370. There are 3-D post processed images. There is mild right pleural effusion. There is right lower lobe infiltrate and atelectasis. There are large filling defects in the right lower lobe pulmonary artery. These extend into the main branch of the right pulmonary artery. I see no filling defects in the left pulmonary artery. The heart size is top normal. There is no pericardial effusion. There are hypodense rounded foci in the liver that are probably multiple cysts. There is some atelectasis left posterior lung base. Thoracic aorta is intac t. There is no aneurysm or dissection. The ascending aorta measures 3.1 cm. Bony thorax is intact. Th ere is no compression fracture. IMPRESSION: Large emboli in the right lower lobe pulmonary artery with probably right lower lobe pulmonary infarc t. Right lower lobe infiltrate and atelectasis. Mild right pleural effusion. Mild infiltrate and atel ectasis posterior left lung base. This exam was discussed with the patient's nurse Stephanie on the floor at 2:30 PM.
[2020-04-12] MEDS ORDERED: HEPARIN SODIUM,PORCINE 5,000 UNIT/ML 1 ML VIAL IV PRN (14:49)
[2020-04-12] MEDS ORDERED: HEPARIN SODIUM,PORCINE 10,000 UNIT/ML 1 ML VIAL IV ONE (14:49)
[2020-04-12 15:01] LABS: Basophils % (A) 0 %; Eosinophils # (A) 0.1 k/uL (0-0.7); Eosinophils % (A) 0 %; HCT 36.8 % (34.0-46.0); HGB 11.8 gm/dL (11.4-16.0); Hypochromasia Slight; Lymphocytes # (A) 0.6 k/uL (1.0-4.8); Lymphocytes % (A) 3 %; MCH 28.8 pg (25.0-35.0); MCHC 32.1 g/dL (31.0-37.0); MCV 89.6 fL (80.0-100.0); Mean Platelet Volume 11.3; Monocytes # (A) 0.8 k/uL (0-1.0); Monocytes % (A) 4 %; Neutrophils # (A) 17.5 k/uL (1.3-7.7); Neutrophils % (A) 92 %; Platelet Count 295 k/uL (150-450); RDW 12.8 % (11.5-15.5)
[2020-04-12 15:09] LABS: Partial Thromboplastin Time 23.8 sec (22.0-30.0); Prothrombin Time 10.6 sec (9.0-12.0)
[2020-04-12] MEDS: HEPARIN SOD,PORK IN 0.45% NACL 25,000 UNIT in 0.45% NACL 1 250ML.BAG IV SCH (15:22)
[2020-04-12] MEDS: amLODIPine 2.5 MG TAB PO SCH (17:38)
[2020-04-12] MEDS: ASPIRIN 81 MG PO SCH (20:08)
[2020-04-12] MEDS ORDERED: VANCOMYCIN 1,250 MG in SODIUM CHLORIDE 0.9% 250 ML IVPB SCH (21:00)
--- NOTE | 2020-04-12 23:46 | P.CONS ---
History of Present Illness - Reason for Consult Consult date: 04/12/20 Pneumonia and urinary tract infection Requesting physician: Shelbie Duke - Chief Complaint Weakness fever and mental status changes x 1 day - History of Present Illness Patient is 89-year-old female halfway resident patient did have a history of urinary retention with a chronic indwelling Díaz catheter patient apparently was currently being treated for a UTI patient has been sent to [facility] ER for evaluation of fever and decreased oral intake and some mental status changes on arrival of the EMS the patient was noticed to have fever of 100F, patient did not have any fever hospital while in the hospital however the patient did have elevated white count presentation of 26,000 patient also have elevated d-dimer chest x-ray with right lower lobe atelectasis versus early pneumonia patient has been started on Rocephin with concern for possible Covid 19 pneumoniae infection disease was consulted for further management, patient is currently breathing comfortably on room air denies having any chest pain or shortness of cough no headache no vomiting no abdominal pain patient Díaz catheter was not changed in the ER UA is minimally positive and no diarrhea or any open sores has been reported by the nursing staff Review of Systems Positive point has been mentioned in the HPI rest of the systems are negative Past Medical History Past Medical History: Coronary Artery Disease (CAD), Dementia, Hypertension, Thyroid Disorder, Vascular Disorder Additional Past Medical History / Comment(s): Polymyalgia rheumatica, chronic back pain, adrenal insufficiency/crisis in 2016, daughter states pt had recent GTT with "borderline" result-to have another glucose test to determine if diabetic, irregular heart beat in past, bilateral leg varicosities, hypothyroid, cystocele, diverticular disease, benign colon polyp, hemmorrhoids. History of Any Multi-Drug Resistant Organisms: None Reported Past Surgical History: Appendectomy, Heart Catheterization With Stent, Hysterectomy, Tubal Ligation Additional Past Surgical History / Comment(s): PCI with stents (2) at [facility], colonoscopies/polypectomy-benign, skin mole removal, D&C, L wrist ganglion cystectomy, bilateral cataract removals/lens implants. Additional Past Anesthesia/Blood Transfusion Reaction / Comm: Pt is very "sensitive" to anesthesia Date of Last Stent Placement:: 2009 Past Psychological History: Anxiety, Depression Additional Psychological History / Comment(s): Pt resides in her home. She win [employer] in [place] with her sister. Pt has her mariaa with her during the day and a friend stays evenings/nights. Pt has dementia. Her mariaa manages her meds. Friends and family drive her to [employer]. She uses a walker mostly to ambulate and also has a cane. MariaaEvita, who is DPOA is interested in home care/rehab Smoking Status: Never smoker Past Alcohol Use History: None Reported Past Drug Use History: None Reported - Past Family History Father Family Medical History: Coronary Artery Disease (CAD), Pneumonia Additional Family Medical History / Comment(s): Father lived into his late 70s Mother Family Medical History: Dementia Additional Family Medical History / Comment(s): Mother lived to be 100 Medications and Allergies Home Medications Medication Instructions Recorded Confirmed Type Aspirin 81 mg PO HS@209903/26/20 04/11/20 History Clopidogrel [Plavix] 75 mg PO DAILY@119903/26/20 04/11/20 History Ergocalciferol [Vitamin D2 50,000 unit PO FR@119903/26/20 04/11/20 History (DRISDOL)] Fludrocortisone [Florinef] 0.1 mg PO BID-W/MEALS 03/26/20 04/11/20 History Hydrocortisone [Cortef] 5 mg PO DAILY@169903/26/20 04/11/20 History Hydrocortisone [Cortef] 10 mg PO BID-W/MEALS@03/26/20 04/11/20 History Levothyroxine Sodium [Synthroid] 62.5 mcg PO MOTUWETH 03/26/20 04/11/20 History Levothyroxine Sodium [Synthroid] 125 mcg PO SUFRSA 03/26/20 04/11/20 History Liothyronine Sodium 50 mcg PO AC-BRKFST 03/26/20 04/11/20 History Melatonin 10 mg PO HS@209903/26/20 04/11/20 History Mirtazapine [Remeron] 15 mg PO HS@209903/26/20 04/11/20 History Potassium Chloride [Klor-Con 20] 60 meq PO DAILY@169903/26/20 04/11/20 History predniSONE 7.5 mg PO W/BRKFST 03/26/20 04/11/20 History risperiDONE [RisperDAL] 0.25 mg PO HS@2100 03/26/20 04/11/20 History ALPRAZolam [Xanax] 0.25 mg PO DAILY PRN #3 tab 03/31/20 04/11/20 Rx Acetaminophen Tab [Tylenol] 650 mg PO Q6HR PRN tab 03/31/20 04/11/20 Rx Pantoprazole [Protonix] 40 mg PO AC-BRKFST tablet. 03/31/20 04/11/20 Rx Ciprofloxacin HCl [Cipro] 250 mg PO Q12HR@0800,199904/11/20 04/11/20 History Lactose-Reduced Food [Ensure Plus] 120 ml PO TID@1200,1700,209904/11/20 04/11/20 History Liquacel 30 ml PO BID@0800,1700 04/11/20 04/11/20 History Magnesium Hydroxide [Milk of 2,400 mg PO DAILY PRN 04/11/20 04/11/20 History Magnesia] Megestrol Acetate 400 mg PO BID@0800,1700 04/11/20 04/11/20 History Na Phos,M-B/Na Phos,Di-Ba [Fleet 133 ml RECTAL DAILY PRN 04/11/20 04/11/20 History Adult] Nystatin 100,000 Unit/ml Susp 5 ml PO QID 04/11/20 04/11/20 History [Mycostatin Oral Susp] Orgain Protein Shake 1 can PO DAILY@0600 04/11/20 04/11/20 History amLODIPine [Norvasc] 2.5 mg PO DAILY@1700 04/11/20 04/11/20 History bisacodyL [Dulcolax] 10 mg RECTAL DAILY PRN 04/11/20 04/11/20 History Allergies Allergy/AdvReac Type Severity Reaction Status Date / Time dexamethasone [From Decadron] Allergy Unknown Verified 04/11/20 17:56 codeine AdvReac Nausea Verified 04/11/20 17:56 Physical Exam Vitals: Vital Signs Temp Pulse Pulse Resp BP BP Pulse Ox 04/12/20 14:24 98.6 F 83 17 166/72 96 04/12/20 07:26 98.7 F 91 16 156/77 97 04/12/20 02:00 98.0 F 89 163/82 97 07/31/20 20:25 98.4 F 89 138/63 96 04/11/20 20:04 99 16 140/78 99 04/11/20 19:26 96 16 158/97 96 04/11/20 18:51 86 16 157/78 96 04/11/20 17:57 98.9 F 91 18 151/76 96 Intake and Output 04/12/20 04/12/20 04/12/20 06:59 14:59 22:59 Intake Total 540 Output Total 300 Balance -300 540 Intake: Oral 540 Output: Urine 300 Other: Voiding Method Indwelling Catheter Indwelling Catheter # Bowel Movements 4 Weight 56 kg GENERAL DESCRIPTION: An elderly female lying in bed, no distress. No tachypnea or accessory muscle of respiration use. HEENT: Shows Pallor , no scleral icterus. Oral mucous membrane is dry. No pharyngeal erythema or thrush NECK: Trachea central, no thyromegaly. LUNGS: Unlabored breathing. Decreased present at the base. No wheeze or crackle. HEART: S1, S2, regular rate and rhythm. No loud murmur ABDOMEN: Soft, no tenderness , guarding or rigidity, no organomegaly EXTREMITIES: No edema of feet. SKIN: No rash, no masses palpable. NEUROLOGICAL: The patient is awake, alert, oriented x1, mood and affect normal. Results CBC & Chem 7: 04/12/20 10:43 04/11/20 18:11 Labs: Abnormal Lab Results - Last 24 Hours (Table) 04/11/20 04/11/20 04/11/20 Range/Units 18:11 18:11 18:16 WBC 25.6 H (3.8-10.6) k/uL Neutrophils # 23.9 H (1.3-7.7) k/uL Lymphocytes # 0.5 L (1.0-4.8) k/uL ESR (0-20) mm/hr D-Dimer (<0.60) mg/L FEU BUN 28 H (7-17) mg/dL Glucose 133 H (74-99) mg/dL POC Glucose (mg/dL) 138 H (75-99) mg/dL AST 94 H (14-36) U/L ALT 37 H (4-34) U/L Lactate Dehydrogenase (313-618) U/L C-Reactive Protein (<10.0) mg/L Total Protein 5.8 L (6.3-8.2) g/dL Albumin 2.9 L (3.5-5.0) g/dL Urine Protein (Negative) Urine Glucose (UA) (Negative) Urine Ketones (Negative) Urine Blood (Negative) Ur Leukocyte Esterase (Negative) Urine RBC (0-5) /hpf Urine Mucus (None) /hpf 04/11/20 04/12/20 04/12/20 Range/Units 18:30 10:43 10:43 WBC (3.8-10.6) k/uL Neutrophils # (1.3-7.7) k/uL Lymphocytes # (1.0-4.8) k/uL ESR 66 H (0-20) mm/hr D-Dimer 9.56 H (<0.60) mg/L FEU BUN (7-17) mg/dL Glucose (74-99) mg/dL POC Glucose (mg/dL) (75-99) mg/dL AST (14-36) U/L ALT (4-34) U/L Lactate Dehydrogenase (313-618) U/L C-Reactive Protein (<10.0) mg/L Total Protein (6.3-8.2) g/dL Albumin (3.5-5.0) g/dL Urine Protein 1+ H (Negative) Urine Glucose (UA) 1+ H (Negative) Urine Ketones Trace H (Negative) Urine Blood Small H (Negative) Ur Leukocyte Esterase Trace H (Negative) Urine RBC 11 H (0-5) /hpf Urine Mucus Many H (None) /hpf 04/12/20 04/12/20 Range/Units 10:43 10:43 WBC 19.0 H (3.8-10.6) k/uL Neutrophils # 17.5 H (1.3-7.7) k/uL Lymphocytes # 0.6 L (1.0-4.8) k/uL ESR (0-20) mm/hr D-Dimer (<0.60) mg/L FEU BUN (7-17) mg/dL Glucose (74-99) mg/dL POC Glucose (mg/dL) (75-99) mg/dL AST (14-36) U/L ALT (4-34) U/L Lactate Dehydrogenase 848 H (313-618) U/L C-Reactive Protein 365.9 H (<10.0) mg/L Total Protein (6.3-8.2) g/dL Albumin (3.5-5.0) g/dL Urine Protein (Negative) Urine Glucose (UA) (Negative) Urine Ketones (Negative) Urine Blood (Negative) Ur Leukocyte Esterase (Negative) Urine RBC (0-5) /hpf Urine Mucus (None) /hpf Assessment and Plan Assessment: 1- patient being admitted to the hospital with mental status changes weakness decreased oral intake this patient did have a low-grade fever and significant elevated white count which is likely multifactorial in this patient who did have evidence of right lower lobe infiltrate however subsequent CT angiogram that shows right lower lobe PE and pulmonary infarct cannot show any groundglass infiltrate which are usually specific for acute viral pneumonia, patient did have a positive UA , underlying Urinary tract infection From enteric gram- negative pathogen not entirely excluded (1) UTI (urinary tract infection) Current Visit: Yes Status: Acute Code(s): N39.0 - URINARY TRACT INFECTION, SITE NOT SPECIFIED SNOMED Code(s): 13398085 Plan: 1- change Díaz catheter and obtain urine culture from the new Díaz 2- Rocephin 1 g daily We will follow on clinical condition and cultures to further adjust medication if needed Thank you for this consultation will follow this patient with you Time with Patient: Greater than 30
[2020-04-13 00:01] LABS: Appearance,Urine Clear (Clear); Bacteria,Urine Rare /hpf; Bilirubin,Urine Negative (Negative); Blood,Urine Small (Negative); Color,Urine Yellow; Glucose,Urine (UA) Trace (Negative); Ketones,Urine 3+ (Negative); Leukocyte Esterase,Urine Moderate (Negative); Mucus,Urine Rare /hpf; Nitrite,Urine Negative (Negative); PH, Urine 6.5 (5.0-8.0); Protein,Urine Trace (Negative); RBC,Urine 9 /hpf (0-5); Specific Gravity,Urine 1.027 (1.001-1.035); Urobilinogen,Urine <2.0 mg/dL (<2.0); WBC,Urine 33 /hpf (0-5)
[2020-04-13] MEDS: LEVOTHYROXINE 125 MCG TAB PO SCH (05:13)
[2020-04-13 07:17] LABS: Basophils % (A) 0 %; Eosinophils # (A) 0.2 k/uL (0-0.7); Eosinophils % (A) 1 %; HCT 39.2 % (34.0-46.0); HGB 12.4 gm/dL (11.4-16.0); Hypochromasia Slight; Lymphocytes # (A) 1.1 k/uL (1.0-4.8); Lymphocytes % (A) 6 %; MCHC 31.5 g/dL (31.0-37.0); MCV 88.7 fL (80.0-100.0); Mean Platelet Volume 9.4; Monocytes # (A) 0.8 k/uL (0-1.0); Monocytes % (A) 4 %; Neutrophils # (A) 16.7 k/uL (1.3-7.7); Neutrophils % (A) 88 %; Platelet Count 379 k/uL (150-450); RBC 4.42 m/uL (3.80-5.40); RDW 13.1 % (11.5-15.5)
[2020-04-13 07:31] LABS: ALT 65 U/L (4-34); AST 191 U/L (14-36); African American GFR (CKD) >90 (>60 ml/min/1.73 sqM); Albumin 2.8 g/dL (3.5-5.0); Alkaline Phosphatase 98 U/L (38-126); Anion Gap 11 mmol/L; Blood Urea Nitrogen 15 mg/dL (7-17); Calcium 8.4 mg/dL (8.4-10.2); Carbon Dioxide 23 mmol/L (22-30); Chloride 103 mmol/L (98-107); Glucose 90 mg/dL (74-99); LDH 1022 U/L (313-618); Non-African American GFR(CKD) 87 (>60 ml/min/1.73 sqM); Sodium 137 mmol/L (137-145); Total Bilirubin 0.6 mg/dL (0.2-1.3); Total Protein 5.6 g/dL (6.3-8.2)
[2020-04-13 07:33] LABS: Potassium 2.8 mmol/L (3.5-5.1)
[2020-04-13] MEDS: HYDROCORTISONE 10 MG TAB PO SCH ×3 (07:38→16:41)
[2020-04-13] MEDS: PANTOPRAZOLE 40 MG TABLET PO SCH (07:38)
[2020-04-13] MEDS ORDERED: Potassium Replacement Protocol 1 EACH MISC MISCELLANE PRN (09:05)
[2020-04-13] MEDS: POTASSIUM CHLORIDE 10 MEQ in WATER FOR INJECTION 1 100ML.BAG IVPB SCH ×6 (09:39→16:41)
[2020-04-13] MEDS: 0.9% NACL WITH KCL 40 MEQ/L 1,000 ML IV SCH (12:28)
[2020-04-13] MEDS: CLOPIDOGREL 75 MG TAB PO SCH (12:28)
[2020-04-13] MEDS: HEPARIN SOD,PORK IN 0.45% NACL 25,000 UNIT in 0.45% NACL 1 250ML.BAG IV SCH (13:49)
--- NOTE | 2020-04-13 16:00 | PN ---
PROGRESS NOTE DATE OF SERVICE: 04/13/2020 This 89-year-old woman who was admitted with fever, diminished p.o. intake and change in mental status also had acute pulmonary embolism. Covid-19 pneumonia also has been suspected. Infectious Disease and multiple consultants are following the patient closely. The patient also continues to be confused. Past medical history reviewed. Review of system could not be taken. The patient is confused. Current medications reviewed and include: 1. Tylenol. 2. Norvasc. 3. Aspirin. 4. Rocephin. 5. Plavix. 6. Heparin. 7. Cortef. 8. Synthroid. 9. Narcan. 10.Protonix. 11.Doses reviewed. PHYSICAL EXAM: Patient is conscious, confused. Pulse 93, blood pressure 176/94, respirations 17, temperature 97.9, pulse ox 97% on room air. HEENT: Conjunctivae normal. Oral mucosa moist. NECK is no jugular venous distention. No carotid bruit. No lymph node enlargement. CARDIOVASCULAR: S1, S2 muffled. RESPIRATION: Breath sounds diminished in the bases. No rhonchi. No crackles. ABDOMEN: Soft, nontender. No mass palpable. LEGS: No edema. No swelling. NERVOUS SYSTEM: No focal deficits.. Higher functions as mentioned earlier. Moves all four limits. Diffusely weak. LABS: WBC 19, hemoglobin 12.4, sodium 137, potassium 2.8 and the LDH is 1022 and C-reactive protein is 322. UA noted, possibly UTI. ASSESSMENT: 1. Fever, possible right lower lobe pneumonia, possibly gram-negative. Possibly viral pneumonia, rule out Covid-19 pneumonia. 2. Change in mental status, metabolic encephalopathy, acute on chronic. 3. Acute urinary tract infection present on admission. 4. Increased WBC. 5. Elevated ESR and CRP. 6. Elevated D-dimer, possibly acute right lower lobe pulmonary embolism with pulmonary infarct. 7. Increased AST ALT, rule out hepatitis. 8. Increased LDH. 9. Hypoalbuminemia with mild protein calorie malnutrition. 10.History of coronary artery disease. 11.Dementia. 12.Hypertension. 13.Hypothyroidism. 14.History of polymyalgia rheumatica. 15.History of chronic back pain. 16.History of borderline glucose tolerance test. 17.History of bilateral leg varicosities. 18.History of coronary artery disease/stent. 19.History of anxiety, depression. 20.Left bundle block in EKG. 21.NO CODE, NO CPR, NO VENT. RECOMMENDATIONS AND DISCUSSION: I recommend to continue current medications, continue with monitoring, continue with antibiotics. Continue with heparin. Closely follow with Infectious Disease and Pulmonary. Otherwise, guarded prognosis. Further recommendations to follow. Prognosis guarded. Discussed with the family. We will discuss with Ingrid the daughter. Further recommendations to follow. BLAYNE / WAYNEN: [id number] /
[2020-04-13] MEDS: amLODIPine 2.5 MG TAB PO SCH (16:41)
--- NOTE | 2020-04-13 17:24 | CONS ---
CONSULTATION PULMONARY/CRITICAL CARE CONSULTATION: DATE OF SERVICE: April 13, 2020 HISTORY OF PRESENT ILLNESS: This is an 89-year-old patient who [facility]. The patient apparently was seen in the ER on April 11. The patient apparently initially presented with fever, impaired mental status, decreased oral intake. The patient is demented and is a very poor historian. All the history is obtained from the medical record and other documentations done by the ER physicians and other healthcare providers. The patient is a DO NOT RESUSCITATE patient. Apparently, when she was in the ER, it was noted that she had not had much to eat or drink for 24-48 hours before coming to the ER. She apparently was being treated for urinary tract infection and did have an elevated temperature of a 100 degrees noted by EMS during transport. Her other vital signs were stable. She had an indwelling Díaz catheter. About 100 mL of urine output was noted in the previous 24 hours. The patient is bedbound. Again, very confused, not able to provide any additional history. MEDICATIONS: Reviewed. She is apparently on aspirin, Plavix, vitamin D2, Florinef, Cortef, Synthroid, melatonin, Remeron, potassium chloride, prednisone, Respirdal, ciprofloxacin, Ensure Plus, milk of magnesia, Megace, vitamins, nystatin, amlodipine, Dulcolax, Xanax, Tylenol and Protonix. ALLERGIES: INCLUDE DECADRON AND CODEINE. MEDICAL HISTORY: Apparently positive for CAD, dementia, hypertension, hypothyroidism, polymyalgia rheumatica, chronic back pain, adrenal insufficiency, prediabetic, irregular heartbeat, bilateral leg varicose veins, cystocele, diverticular disease, colonic polyps, hemorrhoids, among other things. SURGICAL HISTORY: Includes appendectomy, heart catheterization with stent, hysterectomy, tubal ligation, ganglion cyst surgery, and bilateral cataract surgery with lens implant. SOCIAL HISTORY: Negative for tobacco, alcohol or illicit drug use. FAMILY HISTORY: Apparently positive for father with CAD and pneumonia and a mother who had dementia. REVIEW OF SYSTEMS: Cannot be obtained. The patient is not able to give any reliable history. PHYSICAL EXAMINATION: VITAL SIGNS: Current vital signs are reviewed. Temperature is 97.7. Heart rate 90, respiratory rate 17, blood pressure 155/81, mean 112. Room air saturation 96%. GENERAL: Appears in no acute distress. HEENT: Examination is grossly unremarkable. No supplemental oxygen. NECK: Supple. Full range of motion. No adenopathy. Neck veins are flat. CARDIOVASCULAR: Examination reveals regular rhythm and rate. Heart sounds are distant. No murmur. LUNGS: Mild diffuse rhonchi. No wheezes or crackles. The patient does not take deep breaths. Breath sounds equal bilaterally. ABDOMEN: Soft. Bowel sounds are heard. EXTREMITIES are intact. No edema. SKIN: Without rash. NEUROLOGIC: Examination could not be adequately assessed. The patient is quite demented. He is very confused and disoriented. LABS: Reviewed. White count 19, hemoglobin 12.4, hematocrit 39.2, platelet count 379,000. PTT was 63.8. D-dimer was 9.56. Sodium 137, potassium 2.8, chloride 103, CO2 23, anion gap 11. BUN and creatinine were 15 and 0.48. LDH was 1022. C-reactive protein 322, total bilirubin 0.6, AST 191, ALT 65. Albumin 2.8. Urine shows it to be yellow and clear. Nitrite was negative. Leukocyte esterase was moderate positive. There was 9 RBCs, 33 WBCs and rare bacteria. Urine and blood cultures thus far negative. CHEST X-RAY: Shows some right lower lobe atelectasis. A CTA of the chest showed large emboli in the right lower lobe pulmonary artery with probable right lower lobe pulmonary infarct. There is also some right lower lobe atelectasis and/or infiltrate and a small right-sided pleural effusion. ASSESSMENT: 1. Pulmonary embolism/pulmonary infarction, right lower lobe. 2. History of probable urinary tract infection. 3. Severe dementia. 4. Coronary artery disease. 5. Hypertension. 6. Hypothyroidism. 7. Polymyalgia rheumatica. 8. Chronic back pain. 9. History of adrenal insufficiency with adrenal crisis. 10.Prediabetes. 11.Bilateral varicose veins. 12.History of cystocele. 13.Diverticular disease. 14.Multiple other medical problems and comorbidities. PLAN: The patient is currently on IV heparin. The patient could be transitioned to a factor Xa inhibitor. Currently, she is on ceftriaxone for a possible urinary tract infection. Additional recommendations and suggestions are forthcoming. The other medications look appropriate. Again, patient is a very poor historian. No additional recommendations are made at this time. We will continue to follow. MMODL / IJN: [id number] / VICTOR HUGO
[2020-04-13 18:51] LABS: Potassium 3.7 mmol/L (3.5-5.1)
[2020-04-13] MEDS: ASPIRIN 81 MG PO SCH (20:04)
--- NOTE | 2020-04-14 00:05 | PN ---
PROGRESS NOTE DATE OF SERVICE: 04/13/2020 REASON FOR FOLLOWUP: Urinary tract infection. INTERVAL HISTORY: The patient is currently afebrile. The patient is breathing comfortably. The patient remains to be pleasantly confused. Denies having any chest pain or cough. No abdominal pain, no diarrhea. PHYSICAL EXAMINATION: Blood pressure 176/94 with a pulse of 93, temperature 97.9. She is 97% on room air. General description is an elderly female lying in bed in no distress. RESPIRATORY SYSTEM: Unlabored breathing, decreased breath sounds at the bases. No wheeze. HEART: S1, S2. Regular rate and rhythm. ABDOMEN: Soft, no tenderness. LABS: Hemoglobin is 12.4, white count 19 with a BUN of 15, creatinine 0.48. DIAGNOSTIC IMPRESSION AND PLAN: Patient with right lower lobe abnormality that has been diagnosed with pulmonary infarct and pulmonary embolism. Clinical suspicion for pneumonia also with a component of urinary tract infection, catheter associated, covered with Rocephin to continue and monitor clinical course closely. MMODL / IJN: [id number] /
[2020-04-14] MEDS: LEVOTHYROXINE 125 MCG TAB PO SCH (05:07)
[2020-04-14] MEDS: PANTOPRAZOLE 40 MG TABLET PO SCH (07:12)
[2020-04-14] MEDS: HYDROCORTISONE 10 MG TAB PO SCH ×3 (07:12→17:35)
[2020-04-14] MEDS: 0.9% NACL WITH KCL 40 MEQ/L 1,000 ML IV SCH ×2 (07:12→11:37)
[2020-04-14 07:57] LABS: Basophils % (A) 0 %; Eosinophils # (A) 0.2 k/uL (0-0.7); Eosinophils % (A) 2 %; HCT 38.9 % (34.0-46.0); HGB 12.3 gm/dL (11.4-16.0); Lymphocytes # (A) 1.4 k/uL (1.0-4.8); Lymphocytes % (A) 9 %; MCH 27.6 pg (25.0-35.0); MCHC 31.7 g/dL (31.0-37.0); MCV 87.1 fL (80.0-100.0); Mean Platelet Volume 9.3; Monocytes # (A) 0.5 k/uL (0-1.0); Monocytes % (A) 4 %; Neutrophils # (A) 12.3 k/uL (1.3-7.7); Neutrophils % (A) 84 %; Platelet Count 398 k/uL (150-450); RBC 4.47 m/uL (3.80-5.40); WBC 14.5 k/uL (3.8-10.6)
[2020-04-14 08:53] LABS: ALT 107 U/L (4-34); AST 272 U/L (14-36); African American GFR (CKD) >90 (>60 ml/min/1.73 sqM); Albumin 2.6 g/dL (3.5-5.0); Alkaline Phosphatase 85 U/L (38-126); Anion Gap 9 mmol/L; Blood Urea Nitrogen 9 mg/dL (7-17); Carbon Dioxide 21 mmol/L (22-30); Chloride 105 mmol/L (98-107); Glucose 91 mg/dL (74-99); LDH 1066 U/L (313-618); Non-African American GFR(CKD) >90 (>60 ml/min/1.73 sqM); Potassium 3.3 mmol/L (3.5-5.1); Sodium 135 mmol/L (137-145); Total Bilirubin 0.8 mg/dL (0.2-1.3); Total Protein 5.4 g/dL (6.3-8.2)
[2020-04-14] MEDS ORDERED: Potassium Replacement Protocol 1 EACH MISC MISCELLANE PRN (09:02)
[2020-04-14 10:06] LABS: C Reactive Protein 253.8 mg/L (<10.0)
[2020-04-14] MEDS: POTASSIUM CHLORIDE 20 MEQ in WATER FOR INJECTION 1 100ML.BAG IVPB SCH ×3 (10:22→15:35)
[2020-04-14] MEDS: HEPARIN SOD,PORK IN 0.45% NACL 25,000 UNIT in 0.45% NACL 1 250ML.BAG IV SCH (11:27)
[2020-04-14] MEDS: CLOPIDOGREL 75 MG TAB PO SCH (11:38)
--- NOTE | 2020-04-14 14:55 | P.PN ---
Subjective Progress Note Date: 04/14/20 Principal diagnosis: Fever, altered mental status, decreased oral intake, acute pulmonary embolism pulmonary infarction On 04/14/2020 patient seen in follow-up on the general medical surgical floor. She is currently awake and alert, she is confused, not sure this is her baseli ne, as no family around but from her documentation it is known that patient is a resident of [facility]. She appears to be in no acute distress, vital signs are stable, room air pulse ox is 94-98%, he denies any difficulty breathing, breathing seems to be quite comfortable, nonlabored, lung sounds are clear, diminished at the bases, no rhonchi or wheezing, no fever or chills. Patient continues on heparin infusion for evidence of a large emboli in the right lower lobe pulmonary artery with a probable right lower lobe pulmonary infarct. Doubt underlyingpneumonia. Today's labs have been reviewed, with blood cell count is trending down, down to 14.5, hemoglobin is 12.3, sodium is 135, potassium is 3.3, chloride is 105, CO2 21, B1 is 90 creatinine 0.4. Blood and urine cultures have shown no growth. Urinalysis showed evidence of a possible urinary tract infection although urine culture has been negative, patient remains on Rocephin. She denies any chest pain, no hemoptysis. Oxygenation has been stable. Objective - Vital Signs Vital signs: Vital Signs Temp 98.9 F 04/14/20 07:00 Pulse 95 04/14/20 07:00 Resp 18 04/14/20 07:00 BP 166/86 04/14/20 07:00 Pulse Ox 94 L 04/14/20 07:00 Intake & Output 04/13/20 04/14/20 04/14/20 18:59 06:59 18:59 Intake Total 173.283 150 782.293 Output Total 375 1400 Balance -201.717 -1250 782.293 Intake: Intake, IV Titration 173.283 150 242.293 Amount 0.9% NaCl with KCl 40 Meq 150 /l 1,000 ml @ 50 mls/hr IV .Q20H [facility] Rx#: [id number] Heparin Sod,Pork in 0.45% 173.283 242.293 NaCl 25,000 unit In 0.45 % NaCl 1 250ml.bag @ 18 UNITS/KG/HR 10.08 mls/hr IV .Q24H [facility] Rx#: [id number] Oral 540 Output: Urine 375 1400 Other: Voiding Method Indwelling Catheter Indwelling Catheter Indwelling Catheter # Voids 3 - Exam GENERAL EXAM: Alert, pleasant, confused, 89-year-old white female, comfortable in no apparent distress. On room air, the pulse ox of 94-98% HEAD: Normocephalic/atraumatic. EYES: Normal reaction of pupils, equal size. Conjunctiva pink, sclera white. NOSE: Clear with pink turbinates. THROAT: No erythema or exudates. NECK: No masses, no JVD, no thyroid enlargement, no adenopathy. CHEST: No chest wall deformity. Symmetrical expansion. LUNGS: Equal air entry with no crackles, wheeze, rhonchi or dullness. CVS: Regular rate and rhythm, normal S1 and S2, no gallops, no murmurs, no rubs ABDOMEN: Soft, nontender. No hepatosplenomegaly, normal bowel sounds, no gu arding or rigidity. EXTREMITIES: No clubbing, no edema, no cyanosis, 2+ pulses and upper and lower e xtremities. MUSCULOSKELETAL: Muscle strength and tone normal. SPINE: No scoliosis or deformity SKIN: No rashes CENTRAL NERVOUS SYSTEM: Alert and oriented -3. No focal deficits, tone is normal in all 4 extremities. PSYCHIATRIC: Alert and oriented -3. Appropriate affect. Intact judgment and insight. - Labs CBC & Chem 7: 04/14/20 07:33 04/14/20 07:33 Labs: Abnormal Lab Results - Last 24 Hours (Table) 04/13/20 04/13/20 04/14/20 Range/Units 14:27 17:56 07:33 WBC 14.5 H (3.8-10.6) k/uL Neutrophils # 12.3 H (1.3-7.7) k/uL APTT 45.9 H (22.0-30.0) sec Sodium 134 L (137-145) mmol/L Potassium (3.5-5.1) mmol/L Carbon Dioxide (22-30) mmol/L Creatinine (0.52-1.04) mg/dL Calcium (8.4-10.2) mg/dL AST (14-36) U/L ALT (4-34) U/L Lactate Dehydrogenase (313-618) U/L C-Reactive Protein (<10.0) mg/L Total Protein (6.3-8.2) g/dL Albumin (3.5-5.0) g/dL 04/14/20 04/14/20 Range/Units 07:33 07:33 WBC (3.8-10.6) k/uL Neutrophils # (1.3-7.7) k/uL APTT 47.5 H (22.0-30.0) sec Sodium 135 L (137-145) mmol/L Potassium 3.3 L (3.5-5.1) mmol/L Carbon Dioxide 21 L (22-30) mmol/L Creatinine 0.44 L (0.52-1.04) mg/dL Calcium 8.0 L (8.4-10.2) mg/dL AST 272 H (14-36) U/L ALT 107 H (4-34) U/L Lactate Dehydrogenase 1066 H (313-618) U/L C-Reactive Protein 253.8 H (<10.0) mg/L Total Protein 5.4 L (6.3-8.2) g/dL Albumin 2.6 L (3.5-5.0) g/dL Microbiology - Last 24 Hours (Table) 04/13/20 00:00 Urine Culture - Final Urine,Voided 04/11/20 18:20 Blood Culture - Preliminary Blood No Growth after 48 hours 04/12/20 10:44 Urine Culture - Final Urine,Catheterized Assessment and Plan Plan: Assessment: #1. Acute pulmonary embolism with right lower lobe pulmonary infarction #2. Possible underlying urinary tract infection, urine culture was negative, currently on Rocephin #3. Leukocytosis, altered mental status and fever likely related to acute urinary tract infection #4. Hypokalemia, likely related to decreased oral intake, improved #5. Metabolic encephalopathy likely related to acute urinary tract infection, improved #6. Elevated ESR, CRP, and LDH #7. Hypoalbuminemia #8. History of underlying dementia, patient is a resident of a [facility] #9. Hypertension #10. Hypothyroidism #11. History of polymyalgia rheumatica #12. History of coronary artery disease with previous stenting Plan: We'll go ahead and switch the patient to Xarelto, obtain echocardiogram, continue current antibiotics for possible urinary tract infection, clinically patient is stable, patient seems to have improved. No respiratory complaints, no complaint of chest pain or hemoptysis, breathing is comfortable. We'll continue to follow I performed a history & physical examination of the patient and discussed their management with my nurse practitioner, Lea Beckwith. I reviewed the nurse practitioner's note and agree with the documented findings and plan of care. Lung sounds are positive for diminished breath sounds. The findings and the impression was discussed with the patient. I attest to the documentation by the nurse practitioner. Time with Patient: Less than 30
[2020-04-14] MEDS: amLODIPine 2.5 MG TAB PO SCH (17:35)
--- NOTE | 2020-04-14 18:00 | ECHOF ---
Referral Reason:shortness of breath, PE MEASUREMENTS -------- HEIGHT: 157.5 cm WEIGHT: 55.8 kg BP: 175/89 IVSd: 1.7 cm (0.6 - 1.1) LVIDd: 3.3 cm (3.9 - 5.3) LVPWd: 1.8 cm (0.6 - 1.1) IVSs: 2.0 cm LVIDs: 2.6 cm LVPWs: 2.1 cm LAESV Index (A-L): 31.23 ml/m Ao Diam: 3.0 cm (2.0 - 3.7) AV Cusp: 2.0 cm (1.5 - 2.6) EPSS: 0.0 cm RAP: 5.00 mmHg RVSP: 39.29 mmHg MV EF SLOPE: 132.91 mm/s (70 - 150) MV EXCURSION: 17.25 mm (> 18.000) FINDINGS -------- This was a technically difficult study with suboptimal apical views. The left ventricular size is normal. There is severe concentric left ventricular hypertrophy. Ove rall left ventricular systolic function is moderately impaired with, an EF between 35 - 40 %. Demi l Doppler inflow pattern suggests diastolic filling abnormality {E/E'}. The right ventricle is normal in size. LA is midly dilated 29-33ml/m2. The right atrium was not well visualized. 5.0mg of Lumason was utilized for enhancement of images Interatrial and interventricular septum intact. There is mild aortic valve sclerosis. Trace amount of aortic regurgitation. There is no evidence of aortic stenosis. Mild mitral regurgitation is present. Mild tricuspid regurgitation present. There is mild pulmonary hypertension. The right ventricular systolic pressure, as measured by Doppler, is 39.29mmHg. There is no pulmonic regurgitation present. The aortic root size is normal. IVC Not well visulized. There is no pericardial effusion. CONCLUSIONS -------- 1. The left ventricular size is normal. 2. There is severe concentric left ventricular hypertrophy. 3. Overall left ventricular systolic function is moderately impaired with, an EF between 35 - 40 %. 4. Mitral Doppler inflow pattern suggest diastolic filling abnormality {E/E'}. 5. LA is midly dilated 29-33ml/m2. 6. There is mild aortic valve sclerosis. 7. Trace amount of aortic regurgitation. 8. Mild mitral regurgitation is present. 9. Mild tricuspid regurgitation present. 10. There is mild pulmonary hypertension. WELT TREATER: Olesya Toussaint RDCS
[2020-04-14] MEDS: ASPIRIN 81 MG PO SCH (20:02)
--- NOTE | 2020-04-14 22:02 | P.PN ---
Subjective Progress Note Date: 04/14/20 Pt is improved today, she is awake and denies complaint. WBC 19k, trending down. She remains on IV heparin for her RLL PE and infarct. COVID negative. Objective - Vital Signs Vital signs: Vital Signs Temp 98.7 F 04/14/20 15:00 Pulse 93 04/14/20 15:00 Resp 18 04/14/20 15:00 BP 175/89 04/14/20 15:00 Pulse Ox 96 04/14/20 15:00 Intake & Output 04/14/20 04/14/20 04/15/20 06:59 18:59 06:59 Intake Total 150 782.293 Output Total 1400 300 Balance -1250 482.293 Intake: Intake, IV Titration 150 242.293 Amount 0.9% NaCl with KCl 40 Meq 150 /l 1,000 ml @ 50 mls/hr IV .Q20H [facility] Rx#: [id number] Heparin Sod,Pork in 0.45% 242.293 NaCl 25,000 unit In 0.45 % NaCl 1 250ml.bag @ 18 UNITS/KG/HR 10.08 mls/hr IV .Q24H [facility] Rx#: [id number] Oral 540 Output: Urine 1400 300 Other: Voiding Method Indwelling Catheter Indwelling Catheter Indwelling Catheter # Voids 3 - Exam Gen: Elderly female in no acute distress CV: RRR, no murmur Lungs: Normal effort, clear throughout Abd: soft, nontender Neruo: oriented x1 - Labs CBC & Chem 7: 04/14/20 07:33 04/14/20 07:33 Labs: Abnormal Lab Results - Last 24 Hours (Table) 04/14/20 04/14/20 04/14/20 Range/Units 07:33 07:33 07:33 WBC 14.5 H (3.8-10.6) k/uL Neutrophils # 12.3 H (1.3-7.7) k/uL APTT 47.5 H (22.0-30.0) sec Sodium 135 L (137-145) mmol/L Potassium 3.3 L (3.5-5.1) mmol/L Carbon Dioxide 21 L (22-30) mmol/L Creatinine 0.44 L (0.52-1.04) mg/dL Calcium 8.0 L (8.4-10.2) mg/dL AST 272 H (14-36) U/L ALT 107 H (4-34) U/L Lactate Dehydrogenase 1066 H (313-618) U/L C-Reactive Protein 253.8 H (<10.0) mg/L Total Protein 5.4 L (6.3-8.2) g/dL Albumin 2.6 L (3.5-5.0) g/dL Microbiology - Last 24 Hours (Table) 04/11/20 18:20 Blood Culture - Preliminary Blood No Growth after 72 hours 04/13/20 00:00 Urine Culture - Final Urine,Voided Assessment and Plan (1) Toxic encephalopathy Current Visit: Yes Status: Acute Code(s): G92 - TOXIC ENCEPHALOPATHY SNOMED Code(s): 62460310 (2) Sepsis due to gram-negative UTI Current Visit: Yes Status: Acute Code(s): A41.50 - GRAM-NEGATIVE SEPSIS, UNSPECIFIED; N39.0 - URINARY TRACT INFECTION, SITE NOT SPECIFIED SNOMED Code(s): 269840939 (3) Alzheimer's dementia Current Visit: No Status: Acute Code(s): G30.9 - ALZHEIMER'S DISEASE, UNSPECIFIED; F02.80 - DEMENTIA IN OTH DISEASES CLASSD ELSWHR W/O BEHAVRL DISTURB SNOMED Code(s): 03370401 Plan: Continue on current regimen continue antibiotics, heparin and IV fluids. Plan to transition to Xarelto per hematology
--- NOTE | 2020-04-14 22:38 | PN ---
PROGRESS NOTE DATE OF SERVICE: 04/14/2020 REASON FOR FOLLOWUP: 1. Urinary tract infection. 2. Right heel pressure ulcer. INTERVAL HISTORY: The patient is currently afebrile. The patient is breathing comfortably. The patient denies having any chest pain or shortness of breath. Occasional cough. No abdominal pain. No diarrhea. PHYSICAL EXAMINATION: Blood pressure 175/89 with a pulse of 93, temperature 98.7. She is 93% on room air. General description is an elderly female up in the bed in no distress. RESPIRATORY SYSTEM: Unlabored breathing with decreased breath sounds at the base. No wheeze. HEART: S1, S2. Regular rate and rhythm. ABDOMEN: Soft. No tenderness. Right heel with a stage I pressure ulcer. No skin breakdown or any cellulitis. LABS: Hemoglobin is 12.3, white count 14.5, BUN of 9, creatinine 0.44. DIAGNOSTIC IMPRESSION AND PLAN: 1. Patient admitted to hospital with mental status changes and fever with concern for urinary tract infection. The patient did have a positive UA. Blood culture has been negative so far. Currently on Rocephin; to continue and monitor clinical course closely. 2. Right heel stage I pressure ulcer. No evidence of any cellulitis. Local care with dry protective dressing and heel protectors to keep the area off pressure. MMODL / IJN: [id number] /
[2020-04-15] MEDS: LEVOTHYROXINE 125 MCG TAB PO SCH (05:23)
[2020-04-15] MEDS: PANTOPRAZOLE 40 MG TABLET PO SCH (07:25)
[2020-04-15] MEDS: HYDROCORTISONE 10 MG TAB PO SCH ×3 (07:26→17:01)
[2020-04-15] MEDS ORDERED: METOPROLOL TARTRATE 50 MG TAB PO STA (07:32)
[2020-04-15 07:42] LABS: Basophils # (A) 0.1 k/uL (0-0.2); Basophils % (A) 0 %; Eosinophils # (A) 0.2 k/uL (0-0.7); Eosinophils % (A) 2 %; HCT 42.2 % (34.0-46.0); Lymphocytes # (A) 1.4 k/uL (1.0-4.8); Lymphocytes % (A) 10 %; MCH 27.2 pg (25.0-35.0); MCHC 30.9 g/dL (31.0-37.0); MCV 88.1 fL (80.0-100.0); Mean Platelet Volume 8.6; Monocytes # (A) 0.6 k/uL (0-1.0); Monocytes % (A) 4 %; Neutrophils % (A) 83 %; Platelet Count 429 k/uL (150-450); RBC 4.79 m/uL (3.80-5.40); RDW 13.1 % (11.5-15.5); WBC 14.4 k/uL (3.8-10.6)
[2020-04-15 08:11] LABS: ALT 103 U/L (4-34); AST 223 U/L (14-36); African American GFR (CKD) >90 (>60 ml/min/1.73 sqM); Albumin 2.8 g/dL (3.5-5.0); Alkaline Phosphatase 86 U/L (38-126); Anion Gap 9 mmol/L; Blood Urea Nitrogen 9 mg/dL (7-17); Calcium 8.5 mg/dL (8.4-10.2); Carbon Dioxide 20 mmol/L (22-30); Chloride 107 mmol/L (98-107); Glucose 103 mg/dL (74-99); LDH 1143 U/L (313-618); Non-African American GFR(CKD) 89 (>60 ml/min/1.73 sqM); Potassium 3.4 mmol/L (3.5-5.1); Sodium 136 mmol/L (137-145); Total Bilirubin 0.7 mg/dL (0.2-1.3); Total Protein 5.7 g/dL (6.3-8.2)
[2020-04-15] MEDS: HEPARIN SOD,PORK IN 0.45% NACL 25,000 UNIT in 0.45% NACL 1 250ML.BAG IV SCH (09:35)
[2020-04-15] MEDS: CLOPIDOGREL 75 MG TAB PO SCH (11:05)
--- NOTE | 2020-04-15 13:21 | P.PN ---
Subjective Progress Note Date: 04/15/20 Principal diagnosis: Fever, altered mental status, decreased oral intake, acute pulmonary embolism pulmonary infarction On 04/14/2020 patient seen in follow-up on the general medical surgical floor. She is currently awake and alert, she is confused, not sure this is her baseli ne, as no family around but from her documentation it is known that patient is a resident of [facility]. She appears to be in no acute distress, vital signs are stable, room air pulse ox is 94-98%, he denies any difficulty breathing, breathing seems to be quite comfortable, nonlabored, lung sounds are clear, diminished at the bases, no rhonchi or wheezing, no fever or chills. Patient continues on heparin infusion for evidence of a large emboli in the right lower lobe pulmonary artery with a probable right lower lobe pulmonary infarct. Doubt underlyingpneumonia. Today's labs have been reviewed, with blood cell count is trending down, down to 14.5, hemoglobin is 12.3, sodium is 135, potassium is 3.3, chloride is 105, CO2 21, B1 is 90 creatinine 0.4. Blood and urine cultures have shown no growth. Urinalysis showed evidence of a possible urinary tract infection although urine culture has been negative, patient remains on Rocephin. She denies any chest pain, no hemoptysis. Oxygenation has been stable. On 04/15/2020 patient seen in follow-up on general medical surgical floor, she is calm and comfortable, resting in bed, in no acute distress, breathing is comfortable, room air pulse ox is 97%, she is afebrile, hemodynamically stable, denies any chest discomfort denies any shortness of breath. Remains on heparin infusion for right lower lobe pulmonary embolism with right lower lobe pulmonary infarction. She also continues on Rocephin for possibility of urinary tract infection, urine culture has shown no growth. No cough, no hemoptysis, no chest pain. Echocardiogram showed severe concentric LVH, moderately impaired left ventricular systolic function with an EF of 35-40%, mild mitral regurgitation, mild tricuspid regurgitation, mild pulmonary hypertension with the right-sided pressures of 39.2mmHg Objective - Vital Signs Vital signs: Vital Signs Temp 97.9 F 04/15/20 07:00 Pulse 117 H 04/15/20 08:35 Resp 18 04/15/20 07:20 BP 148/87 04/15/20 08:06 Pulse Ox 97 04/15/20 07:00 Intake & Output 04/14/20 04/15/20 04/15/20 18:59 06:59 18:59 Intake Total 782.293 150 247.893 Output Total 300 800 Balance 482.293 -650 247.893 Intake: Intake, IV Titration 242.293 150 247.893 Amount 0.9% NaCl with KCl 40 Meq 150 /l 1,000 ml @ 50 mls/hr IV .Q20H [facility] Rx#: [id number] Heparin Sod,Pork in 0.45% 242.293 247.893 NaCl 25,000 unit In 0.45 % NaCl 1 250ml.bag @ 18 UNITS/KG/HR 10.08 mls/hr IV .Q24H [facility] Rx#: [id number] Oral 540 Output: Urine 300 800 Uretheral (Díaz) 400 Other: Voiding Method Indwelling Catheter Indwelling Catheter Indwelling Catheter # Voids 3 - Exam GENERAL EXAM: Alert, pleasant, confused, 89-year-old white female, comfortable in no apparent distress. On room air, the pulse ox of 98% HEAD: Normocephalic/atraumatic. EYES: Normal reaction of pupils, equal size. Conjunctiva pink, sclera white. NOSE: Clear with pink turbinates. THROAT: No erythema or exudates. NECK: No masses, no JVD, no thyroid enlargement, no adenopathy. CHEST: No chest wall deformity. Symmetrical expansion. LUNGS: Equal air entry with no crackles, wheeze, rhonchi or dullness. CVS: Regular rate and rhythm, normal S1 and S2, no gallops, no murmurs, no rubs ABDOMEN: Soft, nontender. No hepatosplenomegaly, normal bowel sounds, no guarding or rigidity. EXTREMITIES: No clubbing, no edema, no cyanosis, 2+ pulses and upper and lower extremities. MUSCULOSKELETAL: Muscle strength and tone normal. SPINE: No scoliosis or deformity SKIN: No rashes CENTRAL NERVOUS SYSTEM: Alert and oriented -3. No focal deficits, tone is normal in all 4 extremities. PSYCHIATRIC: Alert and oriented -3. Appropriate affect. Intact judgment and insight. - Labs CBC & Chem 7: 04/15/20 07:29 04/15/20 07:29 Labs: Abnormal Lab Results - Last 24 Hours (Table) 04/15/20 04/15/20 04/15/20 Range/Units 07:29 07:29 07:29 WBC 14.4 H (3.8-10.6) k/uL MCHC 30.9 L (31.0-37.0) g/dL Neutrophils # 12.0 H (1.3-7.7) k/uL APTT 49.9 H (22.0-30.0) sec Sodium 136 L (137-145) mmol/L Potassium 3.4 L (3.5-5.1) mmol/L Carbon Dioxide 20 L (22-30) mmol/L Creatinine 0.45 L (0.52-1.04) mg/dL Glucose 103 H (74-99) mg/dL AST 223 H (14-36) U/L ALT 103 H (4-34) U/L Lactate Dehydrogenase 1143 H (313-618) U/L C-Reactive Protein 187.0 H (<10.0) mg/L Total Protein 5.7 L (6.3-8.2) g/dL Albumin 2.8 L (3.5-5.0) g/dL Microbiology - Last 24 Hours (Table) 04/11/20 18:20 Blood Culture - Preliminary Blood No Growth after 72 hours 04/13/20 00:00 Urine Culture - Final Urine,Voided Assessment and Plan Plan: Assessment: #1. Acute pulmonary embolism with right lower lobe pulmonary infarction #2. Possible underlying urinary tract infection, urine culture was negative, currently on Rocephin #3. Leukocytosis, altered mental status and fever likely related to acute urinary tract infection #4. Hypokalemia, likely related to decreased oral intake, improved #5. Metabolic encephalopathy likely related to acute urinary tract infection, improved #6. Elevated ESR, CRP, and LDH #7. Hypoalbuminemia #8. History of underlying dementia, patient is a resident of a [facility] #9. Hypertension #10. Hypothyroidism #11. History of polymyalgia rheumatica #12. History of coronary artery disease with previous stenting graft #13. Mildly impaired LV function with an EF of 35-40% Plan: We'll Switch the patient to Xarelto, and we'll discontinue IV heparin. Hemodynamically she remains stable, no complaints of chest pain, maintaining stable oxygenation, echocardiogram results have been noted. Patient continues on antibiotics, she is afebrile. I performed a history & physical examination of the patient and discussed their management with my nurse practitioner, Lea Beckwith. I reviewed the nurse practitioner's note and agree with the documented findings and plan of care. Lung sounds are positive for diminished breath sounds. The findings and the impression was discussed with the patient. I attest to the documentation by the nurse practitioner. Time with Patient: Less than 30
[2020-04-15] MEDS ORDERED: Potassium Replacement Protocol 1 EACH MISC MISCELLANE PRN (14:23)
[2020-04-15] MEDS ORDERED: Magnesium Replacement Protocol 1 EACH MISC MISCELLANE PRN ×2 (14:24→15:32)
[2020-04-15] MEDS: RIVAROXABAN 15 MG TAB PO SCH (14:25)
--- NOTE | 2020-04-15 14:32 | P.PN ---
Subjective Progress Note Date: 04/15/20 Maintain on IV heparin for right lower lobe PE with infarct. Telemetry reporting atrial fibrillation with heart rate uncontrolled up into the 140s. Denies chest pain, denies shortness of breath. Maintaining O2 sats in the 90s on room air. Potassium 3.4. Afebrile, WBC 14.4. Urine cultures reporting no growth. Echo reporting severe concentric lvh, moderately impaired LV function with EF 35-40% ,mild pulmonary hypertension. C reactive protein trending down, currently 187, lactate dehydrogenase 1143. Objective - Vital Signs Vital signs: Vital Signs Temp 97.9 F 04/15/20 07:00 Pulse 117 H 04/15/20 08:35 Resp 18 04/15/20 07:00 BP 148/87 04/15/20 08:06 Pulse Ox 97 04/15/20 07:00 Intake & Output 04/14/20 04/15/20 04/15/20 18:59 06:59 18:59 Intake Total 782.293 150 Output Total 300 800 Balance 482.293 -650 Intake: Intake, IV Titration 242.293 150 Amount 0.9% NaCl with KCl 40 Meq 150 /l 1,000 ml @ 50 mls/hr IV .Q20H [facility] Rx#: [id number] Heparin Sod,Pork in 0.45% 242.293 NaCl 25,000 unit In 0.45 % NaCl 1 250ml.bag @ 18 UNITS/KG/HR 10.08 mls/hr IV .Q24H [facility] Rx#: [id number] Oral 540 Output: Urine 300 800 Uretheral (Díaz) 400 Other: Voiding Method Indwelling Catheter Indwelling Catheter # Voids 3 - Exam Gen: Elderly female in no acute distress CV: RRR, no murmur Lungs: Normal effort, clear throughout Abd: soft, nontender Neruo: oriented x1 - Labs CBC & Chem 7: 04/15/20 07:29 04/15/20 07:29 Labs: Abnormal Lab Results - Last 24 Hours (Table) 04/14/20 04/15/20 04/15/20 Range/Units 07:33 07:29 07:29 WBC 14.4 H (3.8-10.6) k/uL MCHC 30.9 L (31.0-37.0) g/dL Neutrophils # 12.0 H (1.3-7.7) k/uL APTT (22.0-30.0) sec Sodium 135 L 136 L (137-145) mmol/L Potassium 3.3 L 3.4 L (3.5-5.1) mmol/L Carbon Dioxide 21 L 20 L (22-30) mmol/L Creatinine 0.44 L 0.45 L (0.52-1.04) mg/dL Glucose 103 H (74-99) mg/dL Calcium 8.0 L (8.4-10.2) mg/dL AST 272 H 223 H (14-36) U/L ALT 107 H 103 H (4-34) U/L Lactate Dehydrogenase 1066 H 1143 H (313-618) U/L C-Reactive Protein 253.8 H 187.0 H (<10.0) mg/L Total Protein 5.4 L 5.7 L (6.3-8.2) g/dL Albumin 2.6 L 2.8 L (3.5-5.0) g/dL 04/15/20 Range/Units 07:29 WBC (3.8-10.6) k/uL MCHC (31.0-37.0) g/dL Neutrophils # (1.3-7.7) k/uL APTT 49.9 H (22.0-30.0) sec Sodium (137-145) mmol/L Potassium (3.5-5.1) mmol/L Carbon Dioxide (22-30) mmol/L Creatinine (0.52-1.04) mg/dL Glucose (74-99) mg/dL Calcium (8.4-10.2) mg/dL AST (14-36) U/L ALT (4-34) U/L Lactate Dehydrogenase (313-618) U/L C-Reactive Protein (<10.0) mg/L Total Protein (6.3-8.2) g/dL Albumin (3.5-5.0) g/dL Microbiology - Last 24 Hours (Table) 04/11/20 18:20 Blood Culture - Preliminary Blood No Growth after 72 hours 04/13/20 00:00 Urine Culture - Final Urine,Voided Assessment and Plan Assessment: (1) Toxic encephalopathy Current Visit: Yes Status: Acute Code(s): G92 - TOXIC ENCEPHALOPATHY SNOMED Code(s): 74320944 (2) Sepsis due to gram-negative UTI Current Visit: Yes Status: Acute Code(s): A41.50 - GRAM-NEGATIVE SEPSIS, UNSPECIFIED; N39.0 - URINARY TRACT INFECTION, SITE NOT SPECIFIED SNOMED Code(s): 997846074 (3) Alzheimer's dementia Current Visit: No Status: Acute Code(s): G30.9 - ALZHEIMER'S DISEASE, UNSPECIFIED; F02.80 - DEMENTIA IN OTH DISEASES CLASSD ELSWHR W/O BEHAVRL DISTURB SNOMED Code(s): 20936003 (4) hypokalemia Plan continue on current medication regime ,monitoring and symptomatic treatment. Beta mandy added to med regime for uncontrolled A. fib. Transition to Xarelto as per hematology. Maintain on IV antibiotics/wound care as per ID. Potassium supplementation as ordered. Magnesium level ordered. The impression and plan of care has been dictated as directed. : I performed a history and examination of this patient, discussed the same with the dictator. I agree with the dictator's note ,documented as a scribe. Any additional findings or plans will be noted.
[2020-04-15] MEDS: MAGNESIUM SULFATE-D5W PMX 1 GM in DEXTROSE/WATER 1 100ML.BAG IVPB SCH ×3 (15:53→18:00)
--- NOTE | 2020-04-15 16:55 | PN ---
PROGRESS NOTE DATE OF SERVICE: 04/15/2020. REASON FOR FOLLOWUP: Urinary tract infection. INTERVAL HISTORY: The patient is currently afebrile. No complaint of keeping [QAMARKER] today. No history of vomiting or diarrhea or any other abnormality has been reported by the nursing staff. PHYSICAL EXAMINATION: Blood pressure 148/80, pulse of 102, temperature is 97.9, he is 97% on room air. General description is an elderly female, lying in bed in no distress. RESPIRATORY SYSTEM: Unlabored breathing, decreased breath sounds at the base, no wheeze. HEART: S1, S2. Regular rate and rhythm. ABDOMEN: Soft, no tenderness. LABS: Hemoglobin is 13, white count of 14.4, BUN of 5, creatinine 0.45. DIAGNOSTIC IMPRESSION AND PLAN: Patient admitted to the hospital with multiple symptoms in this patient who has been diagnosed with pulmonic infarct and PE being managed by Pulmonary. No positive UA and concern for urinary tract infection. Blood culture has been negative. Covered with Rocephin to continue. Will monitor clinical course closely. Continue supportive care. MMODL / IJN: [id number] /
[2020-04-15] MEDS: amLODIPine 2.5 MG TAB PO SCH (17:01)
[2020-04-15] MEDS: ASPIRIN 81 MG PO SCH (20:49)
[2020-04-15] MEDS: METOPROLOL TARTRATE 50 MG TAB PO SCH (20:49)
[2020-04-16] MEDS: 0.9% NACL WITH KCL 40 MEQ/L 1,000 ML IV SCH ×2 (02:07→20:46)
[2020-04-16] MEDS: PANTOPRAZOLE 40 MG/10 ML VIAL IVP SCH ×3 (02:08→22:09)
[2020-04-16 02:50] LABS: HCT 38.4 % (34.0-46.0); HGB 12.1 gm/dL (11.4-16.0); Hypochromasia Slight; MCH 28.2 pg (25.0-35.0); MCHC 31.4 g/dL (31.0-37.0); MCV 89.7 fL (80.0-100.0); Mean Platelet Volume 8.2; Platelet Count 356 k/uL (150-450); RBC 4.28 m/uL (3.80-5.40); RDW 12.9 % (11.5-15.5); WBC 11.9 k/uL (3.8-10.6)
[2020-04-16] MEDS: LEVOTHYROXINE 125 MCG TAB PO SCH (06:54)
[2020-04-16] MEDS: METOPROLOL TARTRATE 50 MG TAB PO SCH ×2 (08:38→22:09)
[2020-04-16] MEDS: HYDROCORTISONE 10 MG TAB PO SCH ×3 (08:38→17:05)
[2020-04-16 09:06] LABS: HCT 38.4 % (34.0-46.0); HGB 11.7 gm/dL (11.4-16.0); Hypochromasia Slight; MCHC 30.4 g/dL (31.0-37.0); MCV 88.8 fL (80.0-100.0); Mean Platelet Volume 8.6; Platelet Count 422 k/uL (150-450); RBC 4.33 m/uL (3.80-5.40); RDW 13.2 % (11.5-15.5); WBC 13.9 k/uL (3.8-10.6)
[2020-04-16 09:26] LABS: African American GFR (CKD) >90 (>60 ml/min/1.73 sqM); Anion Gap 4 mmol/L; Blood Urea Nitrogen 10 mg/dL (7-17); Calcium 8.3 mg/dL (8.4-10.2); Carbon Dioxide 25 mmol/L (22-30); Chloride 108 mmol/L (98-107); Glucose 104 mg/dL (74-99); Non-African American GFR(CKD) 82 (>60 ml/min/1.73 sqM); Potassium 3.5 mmol/L (3.5-5.1); Sodium 137 mmol/L (137-145)
[2020-04-16] MEDS: RIVAROXABAN 15 MG TAB PO SCH ×2 (09:55→17:05)
--- NOTE | 2020-04-16 10:04 | P.PN ---
Subjective Progress Note Date: 04/16/20 Maintain on IV heparin for right lower lobe PE with infarct. Telemetry reporting atrial fibrillation with heart rate uncontrolled up into the 140s. Denies chest pain, denies shortness of breath. Maintaining O2 sats in the 90s on room air. Potassium 3.4. Afebrile, WBC 14.4. Urine cultures reporting no growth. Echo reporting severe concentric lvh, moderately impaired LV function with EF 35-40% ,mild pulmonary hypertension. C reactive protein trending down, currently 187, lactate dehydrogenase 1143. 04/16/2020 anticoagulated on Xarelto for PE with infarct. Developed blood/clots in stool during the night. GI consulted. Hemoglobin/platelets remained stable at 12.1, 356. Denies abdominal pain. Afebrile, WBC 13.9. Potassium 3.5. Vital signs stable. Beta mandy initiated yesterday for uncontrolled A. fib. Patient had a couple short bursts of PSVT up into the 150s throughout the night, which has subsided currently sinus rhythm. IV antibiotics as per ID. denies chest pain, palpitations or increased shortness of breath. Maintaining O2 sats in the 90s on room air. Objective - Vital Signs Vital signs: Vital Signs Temp 97.9 F 04/16/20 07:00 Pulse 72 04/16/20 07:00 Resp 15 04/16/20 07:00 BP 164/76 04/16/20 07:00 Pulse Ox 99 04/16/20 07:00 Intake & Output 04/15/20 04/16/20 04/16/20 18:59 06:59 18:59 Intake Total 302.213 Output Total 400 2750 Balance -97.787 -2750 Intake: Intake, IV Titration 302.213 Amount Heparin Sod,Pork in 0.45% 302.213 NaCl 25,000 unit In 0.45 % NaCl 1 250ml.bag @ 18 UNITS/KG/HR 10.08 mls/hr IV .Q24H [facility] Rx#: [id number] Output: Urine 400 2750 Other: Voiding Method Indwelling Catheter Indwelling Catheter Indwelling Catheter - Exam Gen: Elderly female in no acute distress CV: RRR, no murmur Lungs: Normal effort, clear throughout Abd: soft, nontender, positive bowel sounds Neruo: oriented x1 - Labs CBC & Chem 7: 04/16/20 08:36 04/16/20 08:36 Labs: Abnormal Lab Results - Last 24 Hours (Table) 04/15/20 04/16/20 04/16/20 Range/Units 14:42 02:32 08:36 WBC 11.9 H 13.9 H (3.8-10.6) k/uL MCHC 30.4 L (31.0-37.0) g/dL Chloride (98-107) mmol/L Glucose (74-99) mg/dL Calcium (8.4-10.2) mg/dL Magnesium 1.4 L (1.6-2.3) mg/dL 04/16/20 Range/Units 08:36 WBC (3.8-10.6) k/uL MCHC (31.0-37.0) g/dL Chloride 108 H (98-107) mmol/L Glucose 104 H (74-99) mg/dL Calcium 8.3 L (8.4-10.2) mg/dL Magnesium (1.6-2.3) mg/dL Microbiology - Last 24 Hours (Table) 04/11/20 18:20 Blood Culture - Preliminary Blood No Growth after 96 hours Assessment and Plan Assessment: (1)Acute PE with right lower lobe pulmonary infarct (2) Toxic encephalopathy Current Visit: Yes Status: Acute Code(s): G92 - TOXIC ENCEPHALOPATHY SNOMED Code(s): 91089799 (3) Sepsis due to gram-negative UTI Current Visit: Yes Status: Acute Code(s): A41.50 - GRAM-NEGATIVE SEPSIS, UNSPECIFIED; N39.0 - URINARY TRACT INFECTION, SITE NOT SPECIFIED SNOMED Code(s): 938702382 (4) Alzheimer's dementia Current Visit: No Status: Acute Code(s): G30.9 - ALZHEIMER'S DISEASE, UNSPECIFIED; F02.80 - DEMENTIA IN OTH DISEASES CLASSD ELSWHR W/O BEHAVRL DISTURB SNOMED Code(s): 05294558 (5) hypokalemia (6) GI bleed, workup in progress Plan continue on current medication regime ,monitoring and symptomatic treatment. Discussed anticoagulation/Xarelto with daughter,as mentioned above hemoglobin, platelets remained within normal limits, asymptomatic .Daughter wishes for patient to continue on anticoagulation. Close monitoring of coags. GI consult in place, recommendations pending. Continue on IV antibiotics/wound care as per ID. Discharge planning in progress for potentially tomorrow. The impression and plan of care has been dictated as directed. : I performed a history and examination of this patient, discussed the same with the dictator. I agree with the dictator's note ,documented as a scribe. Any additional findings or plans will be noted.
[2020-04-16] MEDS: CLOPIDOGREL 75 MG TAB PO SCH (12:31)
[2020-04-16] MEDS: ACETAMINOPHEN TAB 325 MG TAB PO PRN (13:29)
--- NOTE | 2020-04-16 14:17 | P.PN ---
Subjective Progress Note Date: 04/16/20 Principal diagnosis: Fever, altered mental status, decreased oral intake, acute pulmonary embolism pulmonary infarction On 04/14/2020 patient seen in follow-up on the general medical surgical floor. She is currently awake and alert, she is confused, not sure this is her baseli ne, as no family around but from her documentation it is known that patient is a resident of [facility]. She appears to be in no acute distress, vital signs are stable, room air pulse ox is 94-98%, he denies any difficulty breathing, breathing seems to be quite comfortable, nonlabored, lung sounds are clear, diminished at the bases, no rhonchi or wheezing, no fever or chills. Patient continues on heparin infusion for evidence of a large emboli in the right lower lobe pulmonary artery with a probable right lower lobe pulmonary infarct. Doubt underlyingpneumonia. Today's labs have been reviewed, with blood cell count is trending down, down to 14.5, hemoglobin is 12.3, sodium is 135, potassium is 3.3, chloride is 105, CO2 21, B1 is 90 creatinine 0.4. Blood and urine cultures have shown no growth. Urinalysis showed evidence of a possible urinary tract infection although urine culture has been negative, patient remains on Rocephin. She denies any chest pain, no hemoptysis. Oxygenation has been stable. On 04/15/2020 patient seen in follow-up on general medical surgical floor, she is calm and comfortable, resting in bed, in no acute distress, breathing is comfortable, room air pulse ox is 97%, she is afebrile, hemodynamically stable, denies any chest discomfort denies any shortness of breath. Remains on heparin infusion for right lower lobe pulmonary embolism with right lower lobe pulmonary infarction. She also continues on Rocephin for possibility of urinary tract infection, urine culture has shown no growth. No cough, no hemoptysis, no chest pain. Echocardiogram showed severe concentric LVH, moderately impaired left ventricular systolic function with an EF of 35-40%, mild mitral regurgitation, mild tricuspid regurgitation, mild pulmonary hypertension with the right-sided pressures of 39.2mmHg On 04/16/2020 patient seen in follow-up on the general medical surgical floor. She is calm and comfortable, she is sitting up in the recliner, she has been started on this a little, heparin drip has been discontinued, she's had no acute events overnight, her lung sounds are clear, she denies any chest pain, denies any cough, no hemoptysis, she is currently on room air with a pulse ox of 98%, hemodynamically patient has been stable, she's been afebrile, discharge planning is in progress for discharge home tomorrow in the care of her family. Patient apparently had episode of a blood clot in the stool last night, however hemoglobin is relatively stable at 11.7 today, there has been no recurrence of bleeding, hemodynamically patient has remained stable, with the family's permission it was decided to continue on oral anticoagulation and continue watching for any sign of active bleeding Objective - Vital Signs Vital signs: Vital Signs Temp 97.8 F 04/16/20 14:11 Pulse 73 04/16/20 14:11 Resp 16 04/16/20 14:11 BP 128/79 04/16/20 14:11 Pulse Ox 98 04/16/20 14:11 Intake & Output 04/15/20 04/16/20 04/16/20 18:59 06:59 18:59 Intake Total 302.213 Output Total 400 2750 Balance -97.787 -2750 Weight 56 kg Intake: Intake, IV Titration 302.213 Amount Heparin Sod,Pork in 0.45% 302.213 NaCl 25,000 unit In 0.45 % NaCl 1 250ml.bag @ 18 UNITS/KG/HR 10.08 mls/hr IV .Q24H [facility] Rx#: [id number] Output: Urine 400 2750 Other: Voiding Method Indwelling Catheter Indwelling Catheter Indwelling Catheter - Exam GENERAL EXAM: Alert, pleasant, confused, 89-year-old white female, comfortable in no apparent distress. On room air, the pulse ox of 98% HEAD: Normocephalic/atraumatic. EYES: Normal reaction of pupils, equal size. Conjunctiva pink, sclera white. NOSE: Clear with pink turbinates. THROAT: No erythema or exudates. NECK: No masses, no JVD, no thyroid enlargement, no adenopathy. CHEST: No chest wall deformity. Symmetrical expansion. LUNGS: Equal air entry with no crackles, wheeze, rhonchi or dullness. CVS: Regular rate and rhythm, normal S1 and S2, no gallops, no murmurs, no rubs ABDOMEN: Soft, nontender. No hepatosplenomegaly, normal bowel sounds, no guarding or rigidity. EXTREMITIES: No clubbing, no edema, no cyanosis, 2+ pulses and upper and lower extremities. MUSCULOSKELETAL: Muscle strength and tone normal. SPINE: No scoliosis or deformity SKIN: No rashes CENTRAL NERVOUS SYSTEM: Alert and oriented -3. No focal deficits, tone is normal in all 4 extremities. PSYCHIATRIC: Alert and oriented -3. Appropriate affect. Intact judgment and insight. - Labs CBC & Chem 7: 04/16/20 08:36 04/16/20 08:36 Labs: Abnormal Lab Results - Last 24 Hours (Table) 04/15/20 04/16/20 04/16/20 Range/Units 14:42 02:32 08:36 WBC 11.9 H 13.9 H (3.8-10.6) k/uL MCHC 30.4 L (31.0-37.0) g/dL Chloride (98-107) mmol/L Glucose (74-99) mg/dL Calcium (8.4-10.2) mg/dL Magnesium 1.4 L (1.6-2.3) mg/dL 04/16/20 Range/Units 08:36 WBC (3.8-10.6) k/uL MCHC (31.0-37.0) g/dL Chloride 108 H (98-107) mmol/L Glucose 104 H (74-99) mg/dL Calcium 8.3 L (8.4-10.2) mg/dL Magnesium (1.6-2.3) mg/dL Microbiology - Last 24 Hours (Table) 04/11/20 18:20 Blood Culture - Preliminary Blood No Growth after 96 hours Assessment and Plan Plan: Assessment: #1. Acute pulmonary embolism with right lower lobe pulmonary infarction #2. Possible underlying urinary tract infection, urine culture was negative, currently on Rocephin #3. Leukocytosis, altered mental status and fever likely related to acute urinary tract infection #4. Hypokalemia, likely related to decreased oral intake, improved #5. Metabolic encephalopathy likely related to acute urinary tract infection, improved #6. Elevated ESR, CRP, and LDH #7. Hypoalbuminemia #8. History of underlying dementia, patient is a resident of a [facility] #9. Hypertension #10. Hypothyroidism #11. History of polymyalgia rheumatica #12. History of coronary artery disease with previous stenting graft #13. Mildly impaired LV function with an EF of 35-40% #14. One episode of some blood clots in the stool last night with no recurrence, hemodynamically patient has remained stable, between the PCP and the family was decided to continue on oral anticoagulation and continue watching for any sign of active or recurrent bleeding Plan: Patient remains stable, no complaints of shortness of breath, or chest pain, she continues on Xarelto, she remains on room air, she denies any specific complaints, no hemoptysis, she passed some limited amount of blood clots in the stool last night, there has been no recurrence of bleeding, she remains on Xarelto. Vital signs are stable, discharge planning is in progress for possible discharge home tomorrow. I performed a history & physical examination of the patient and discussed their management with my nurse practitioner, Lea Beckwith. I reviewed the nurse practitioner's note and agree with the documented findings and plan of care. Lung sounds are positive for diminished breath sounds. The findings and the impression was discussed with the patient. I attest to the documentation by the nurse practitioner. Time with Patient: Less than 30
[2020-04-16] MEDS: POTASSIUM CHLORIDE 10 MEQ in WATER FOR INJECTION 1 100ML.BAG IVPB SCH ×4 (15:53→19:31)
[2020-04-16] MEDS: amLODIPine 2.5 MG TAB PO SCH (17:06)
--- NOTE | 2020-04-16 21:57 | PN ---
PROGRESS NOTE DATE OF SERVICE: 04/16/2020 REASON FOR FOLLOWUP: Urinary tract infection. INTERVAL HISTORY: The patient is currently afebrile. The patient is more awake and alert today. She is breathing comfortably. Denies having any chest pain cough. No abdominal pain or diarrhea. PHYSICAL EXAMINATION: Blood pressure 143/86, pulse of 74, temperature 97.4. She is 97% on room air. General description is an elderly female lying in bed in no distress. RESPIRATORY SYSTEM: Unlabored breathing with decreased breath sounds at the base. No wheeze. HEART: S1, S2. Regular rate and rhythm. ABDOMEN: Soft. No tenderness. EXTREMITIES: No edema of the feet. LABS: Hemoglobin 11.6, white count 13.9 with a BUN of 10, creatinine 0.58. DIAGNOSTIC IMPRESSION AND PLAN: 1. Patient admitted to hospital with weakness which is multifactorial in this patient who did have a new pulmonary embolism and pulmonary infarct. Also has a positive UA with concern for a urinary tract infection, though urine cultures have been so far negative. She is currently on Rocephin; to continue. Discontinue on discharge. 2. Elevated white count, more likely steroid effect. We will monitor closely. MMODL / IJN: [id number] /
[2020-04-16] MEDS: ASPIRIN 81 MG PO SCH (22:09)
--- NOTE | 2020-04-16 22:51 | CONS ---
CONSULTATION DATE OF DICTATION: 04/16/2020 REASON FOR CONSULTATION: Acute lower GI bleed. HISTORY OF PRESENT ILLNESS: The patient is an 89-year-old pleasant white female with history of coronary artery disease, dementia and hypertension who was admitted to the hospital because of altered mental status. She was subsequently admitted to the hospital with acute urinary tract infection and was started on broad-spectrum antibiotics. During the course of the last 3 days she was diagnosed with pulmonary embolism and was started on anticoagulation and currently on Xarelto. Early this morning she had 2 episodes of bloody bowel movements. The first one was bright red blood with large clots and the second episode happened 2 hours later with significant amount of bleeding. Hence we are consulted in regard to this issue. In the last 6 hours she did not have any further episodes of bleeding. She reports no abdominal pain. No nausea, no vomiting. Never had these symptoms in the past. She does recall having a colonoscopy several years ago. Hemoglobin at the time of admission to the hospital was 12.3 and today it is 11.7 g/dL. HOME MEDICATIONS: Tylenol, Xanax, Norvasc, aspirin, ceftriaxone, Plavix, Cortef, Synthroid, Lopressor, Cipro, Florinef. MEDICATIONS IN THE HOSPITAL: Xarelto. PAST SURGICAL HISTORY: History of coronary artery disease with stent placement, left wrist ganglionectomy, bilateral cataract surgery, colonoscopy in the past. FAMILY HISTORY: Father had coronary artery disease. Mother had dementia. SOCIAL HISTORY: No smoking. No alcohol use. REVIEW OF SYSTEMS: CARDIOPULMONARY: She denies any chest pain. No shortness of breath. GENITOURINARY: No dysuria or hematuria. MUSCULOSKELETAL: Unremarkable. SKIN: Unremarkable. ENDOCRINE: Unremarkable. NEUROLOGY: Significant dementia. ENT/VISION: Unremarkable. CONSTITUTIONAL: No recent weight loss. No fever, chills, night sweats. PHYSICAL EXAMINATION: She appears comfortable. No apparent distress. VITAL SIGNS: Stable. Blood pressure is 142/86, pulse rate 77, temperature 97.4. HEENT examination unremarkable. Conjunctivae pink. Sclerae anicteric. Oral cavity no lesions. NECK: No JVD or lymph node enlargement. CHEST: Clear to auscultation. HEART: Regular rate and rhythm. ABDOMEN: Soft. It was non-tender, non-distended. Bowel sounds are positive. No organomegaly. EXTREMITIES: No pedal edema. NEUROLOGIC: Alert and oriented . No focal deficits. LABS: WBC 13.9, hemoglobin 11.7, platelets 422. Rest of the labs are within normal limits. BUN and creatinine are within normal limits. IMPRESSION: 1. Acute lower gastrointestinal bleeds. The patient had 2 episodes of significant amount of bright red blood per rectum that happened early this morning with large clots. Hemoglobin, however, remained stable at 12.1 g/dL. At the time of admission to the hospital her hemoglobin was 13 g/dL. Patient denies any associated abdominal pain. She is presently on Xarelto for newly diagnosed pulmonary embolism. Last colonoscopy was several years ago. 2. Acute urinary tract infection, on broad-spectrum antibiotics. 3. Dementia. RECOMMENDATIONS: I had a lengthy discussion with the patient as well as the family who was at the bedside. At this time, because of new-onset pulmonary embolism, we will continue with anticoagulation and monitor her CBC closely. I also discussed with the family regarding further workup if she continues to have ongoing lower GI bleed. At this time family has clearly stated that they are not interested in any endoscopic intervention. However, if she continues to drop her hemoglobin, we will transfuse her as needed. At this time we will advance diet as tolerated, monitor CBC on a daily basis and follow with you closely. Thank you for this consultation. BLAYNE / QUAN: [id number] /
[2020-04-17] MEDS: LEVOTHYROXINE 125 MCG TAB PO SCH (05:48)
[2020-04-17 08:10] LABS: Basophils # (A) 0.1 k/uL (0-0.2); Basophils % (A) 1 %; Eosinophils # (A) 0.2 k/uL (0-0.7); Eosinophils % (A) 1 %; HCT 38.4 % (34.0-46.0); HGB 12.2 gm/dL (11.4-16.0); Lymphocytes # (A) 1.6 k/uL (1.0-4.8); Lymphocytes % (A) 11 %; MCH 28.1 pg (25.0-35.0); MCHC 31.7 g/dL (31.0-37.0); MCV 88.6 fL (80.0-100.0); Monocytes # (A) 0.8 k/uL (0-1.0); Monocytes % (A) 5 %; Neutrophils # (A) 11.8 k/uL (1.3-7.7); Neutrophils % (A) 81 %; Platelet Count 433 k/uL (150-450); RBC 4.34 m/uL (3.80-5.40); RDW 13.5 % (11.5-15.5); WBC 14.5 k/uL (3.8-10.6)
[2020-04-17] MEDS: METOPROLOL TARTRATE 50 MG TAB PO SCH ×2 (09:36→20:33)
[2020-04-17] MEDS: RIVAROXABAN 15 MG TAB PO SCH ×2 (09:36→17:08)
[2020-04-17] MEDS: HYDROCORTISONE 10 MG TAB PO SCH ×3 (09:36→17:08)
[2020-04-17] MEDS: PANTOPRAZOLE 40 MG/10 ML VIAL IVP SCH ×2 (09:38→20:33)
[2020-04-17] MEDS: CLOPIDOGREL 75 MG TAB PO SCH (11:45)
[2020-04-17] MEDS: 0.9% NACL WITH KCL 40 MEQ/L 1,000 ML IV SCH (17:03)
[2020-04-17] MEDS: amLODIPine 2.5 MG TAB PO SCH (17:08)
[2020-04-17] MEDS: ASPIRIN 81 MG PO SCH (20:33)
--- NOTE | 2020-04-17 22:29 | PN ---
PROGRESS NOTE DATE OF SERVICE: 04/17/2020. REASON FOR FOLLOW UP: Leukocytosis. INTERVAL HISTORY: Patient is currently afebrile. The patient is more awake and alert. She is breathing comfortably. Denies any chest pain or cough. No nausea. No abdominal pain or diarrhea. PHYSICAL EXAMINATION: Blood pressure 125/66, pulse of 74, temperature 98.6, 93% on room air. General description: The patient is an elderly female lying in bed in no distress. Respiratory system: Unlabored breathing, decreased breath sounds at bases. No wheeze. Heart S1, S2. Regular rate and rhythm. ABDOMEN: Soft. No tenderness. LABS: Hemoglobin is 12.1, white count 14.5. Urine has been negative. DIAGNOSTIC IMPRESSION AND PLAN: Patient with leukocytosis which is multifactorial in this patient who did have a . There was a question of urinary tract infection. Urine culture negative. more likely due to the hydrocortisone the patient is on as no evidence of any worsening infection on empiric Rocephin, can be safely discontinued on discharge. MMODL / IJN: [id number] /
[2020-04-18] MEDS: LEVOTHYROXINE 125 MCG TAB PO SCH (06:09)
[2020-04-18 06:56] LABS: Basophils # (A) 0.1 k/uL (0-0.2); Basophils % (A) 0 %; Eosinophils # (A) 0.2 k/uL (0-0.7); Eosinophils % (A) 1 %; HCT 31.2 % (34.0-46.0); Hypochromasia Slight; Lymphocytes # (A) 1.6 k/uL (1.0-4.8); Lymphocytes % (A) 12 %; MCH 28.1 pg (25.0-35.0); MCHC 31.5 g/dL (31.0-37.0); MCV 89.3 fL (80.0-100.0); Mean Platelet Volume 8.8; Monocytes # (A) 0.6 k/uL (0-1.0); Monocytes % (A) 5 %; Neutrophils # (A) 10.6 k/uL (1.3-7.7); Neutrophils % (A) 81 %; Platelet Count 406 k/uL (150-450); RDW 13.6 % (11.5-15.5); WBC 13.2 k/uL (3.8-10.6)
[2020-04-18 06:59] LABS: HGB 9.8 gm/dL (11.4-16.0)
[2020-04-18] MEDS: HYDROCORTISONE 10 MG TAB PO SCH ×3 (07:19→16:07)
[2020-04-18] MEDS: RIVAROXABAN 15 MG TAB PO SCH (07:19)
[2020-04-18] MEDS: PANTOPRAZOLE 40 MG/10 ML VIAL IVP SCH ×2 (07:32→20:19)
[2020-04-18] MEDS: METOPROLOL TARTRATE 50 MG TAB PO SCH ×2 (08:36→20:19)
--- NOTE | 2020-04-18 08:42 | P.PN ---
Subjective Progress Note Date: 04/17/20 She has not had any further melena or hematochezia. She remains on xarelto for her RLL PE and infarct. Pt continues with leukocytosis, no fever, chills, chest pain, abdominal pain or dysuria. Pt on rocephin per ID. Objective - Vital Signs Vital signs: Vital Signs Temp 97.7 F 04/18/20 07:45 Pulse 70 04/18/20 07:45 Resp 16 04/18/20 07:45 BP 137/70 04/18/20 07:45 Pulse Ox 98 04/18/20 07:45 Intake & Output 04/17/20 04/18/20 04/18/20 18:59 06:59 18:59 Intake Total 120 100 Output Total 200 1101 Balance -80 -1001 Intake: Oral 120 100 Output: Urine 200 1100 Urine/Stool Mix 1 Other: Voiding Method Indwelling Catheter Indwelling Catheter Indwelling Catheter # Bowel Movements 1 - Exam Gen: Elderly female in no acute distress CV: RRR, no murmur Lungs: Normal effort, clear throughout Abd: soft, nontender Neruo: oriented x2, no focal deficits - Labs CBC & Chem 7: 04/18/20 06:25 04/16/20 22:33 Labs: Abnormal Lab Results - Last 24 Hours (Table) 04/18/20 Range/Units 06:25 WBC 13.2 H (3.8-10.6) k/uL RBC 3.50 L (3.80-5.40) m/uL Hgb 9.8 L D (11.4-16.0) gm/dL Hct 31.2 L (34.0-46.0) % Neutrophils # 10.6 H (1.3-7.7) k/uL Microbiology - Last 24 Hours (Table) 04/11/20 18:20 Blood Culture - Final Blood No Growth after 144 hours Assessment and Plan (1) Toxic encephalopathy Current Visit: Yes Status: Acute Code(s): G92 - TOXIC ENCEPHALOPATHY SNOMED Code(s): 86137609 (2) Sepsis due to gram-negative UTI Current Visit: Yes Status: Acute Code(s): A41.50 - GRAM-NEGATIVE SEPSIS, UNSPECIFIED; N39.0 - URINARY TRACT INFECTION, SITE NOT SPECIFIED SNOMED Code(s): 789481511 (3) Alzheimer's dementia Current Visit: No Status: Acute Code(s): G30.9 - ALZHEIMER'S DISEASE, UNSPECIFIED; F02.80 - DEMENTIA IN OTH DISEASES CLASSD ELSWHR W/O BEHAVRL DISTURB SNOMED Code(s): 91907504 Plan: Continue with current care, IV antibiotics, xarelto, conitnue to monitor blood counts. Discussed goals of care with daughter and family declining discharge to subacute rehab. Based on her improvement will consider discharge home with home healthcare vs hospice
[2020-04-18 11:37] LABS: Basophils # (A) 0.1 k/uL (0-0.2); Basophils % (A) 0 %; Eosinophils # (A) 0.1 k/uL (0-0.7); Eosinophils % (A) 1 %; HCT 28.4 % (34.0-46.0); HGB 8.8 gm/dL (11.4-16.0); Hypochromasia Slight; Lymphocytes # (A) 1.1 k/uL (1.0-4.8); Lymphocytes % (A) 8 %; MCH 27.7 pg (25.0-35.0); MCHC 30.8 g/dL (31.0-37.0); MCV 89.9 fL (80.0-100.0); Mean Platelet Volume 8.7; Monocytes # (A) 0.6 k/uL (0-1.0); Monocytes % (A) 4 %; Neutrophils % (A) 87 %; Platelet Count 409 k/uL (150-450); RBC 3.16 m/uL (3.80-5.40); RDW 13.7 % (11.5-15.5); WBC 15.1 k/uL (3.8-10.6)
[2020-04-18] MEDS: CLOPIDOGREL 75 MG TAB PO SCH (12:27)
[2020-04-18] MEDS: 0.9% NACL WITH KCL 40 MEQ/L 1,000 ML IV SCH (12:32)
[2020-04-18] MEDS: amLODIPine 2.5 MG TAB PO SCH (16:07)
[2020-04-18] MEDS: ALPRAZolam 0.25 MG TAB PO PRN (16:07)
[2020-04-18] MEDS: ACETAMINOPHEN TAB 325 MG TAB PO PRN (18:07)
[2020-04-18] MEDS: ASPIRIN 81 MG PO SCH (20:19)
--- NOTE | 2020-04-18 21:58 | P.PN ---
Subjective Progress Note Date: 04/18/20 Pt with two episodes of hematochezia today, Hgb down to 8.8 from 12.2 yesterday. Xarelto stopped. Objective - Vital Signs Vital signs: Vital Signs Temp 97.7 F 04/18/20 15:44 Pulse 69 04/18/20 19:32 Resp 18 04/18/20 19:32 BP 109/65 04/18/20 15:44 Pulse Ox 99 04/18/20 15:44 Intake & Output 04/18/20 04/18/20 04/19/20 06:59 18:59 06:59 Intake Total 100 Output Total 1101 250 Balance -1001 -250 Weight 56 kg Intake: Oral 100 Output: Urine 1100 250 Uretheral (Díaz) 250 Urine/Stool Mix 1 Other: Voiding Method Indwelling Catheter Indwelling Catheter Indwelling Catheter # Voids 3 # Bowel Movements 1 3 - Exam Gen: Elderly female in no acute distress CV: RRR, no murmur Lungs: Normal effort, clear throughout Abd: soft, nontender Neruo: oriented x2, no focal deficits - Labs CBC & Chem 7: 04/18/20 11:07 04/16/20 22:33 Labs: Abnormal Lab Results - Last 24 Hours (Table) 04/18/20 04/18/20 Range/Units 06:25 11:07 WBC 13.2 H 15.1 H (3.8-10.6) k/uL RBC 3.50 L 3.16 L (3.80-5.40) m/uL Hgb 9.8 L D 8.8 L (11.4-16.0) gm/dL Hct 31.2 L 28.4 L (34.0-46.0) % MCHC 30.8 L (31.0-37.0) g/dL Neutrophils # 10.6 H 13.0 H (1.3-7.7) k/uL Microbiology - Last 24 Hours (Table) 04/11/20 18:20 Blood Culture - Final Blood No Growth after 144 hours Assessment and Plan (1) Toxic encephalopathy Current Visit: Yes Status: Acute Code(s): G92 - TOXIC ENCEPHALOPATHY SNOMED Code(s): 71335223 (2) Sepsis due to gram-negative UTI Current Visit: Yes Status: Acute Code(s): A41.50 - GRAM-NEGATIVE SEPSIS, UNSPECIFIED; N39.0 - URINARY TRACT INFECTION, SITE NOT SPECIFIED SNOMED Code(s): 480838465 (3) Alzheimer's dementia Current Visit: No Status: Acute Code(s): G30.9 - ALZHEIMER'S DISEASE, UNSPECIFIED; F02.80 - DEMENTIA IN OTH DISEASES CLASSD ELSWHR W/O BEHAVRL DISTURB SNOMED Code(s): 78917978 Plan: Stop xarelto, continue IV antibiotics and IV fluids. Continue to trend Hgb. Discharge planning in progress for home with hospice.
--- NOTE | 2020-04-19 00:53 | PN ---
PROGRESS NOTE DATE OF SERVICE: 04/18/2020 REASON FOR FOLLOWUP: Leukocytosis. INTERVAL HISTORY: Patient is currently afebrile. Patient is breathing comfortably. She is more awake and alert. Denies having any chest pain or cough. No abdominal pain or diarrhea. PHYSICAL EXAMINATION: Blood pressure 98/51 with a pulse of 70, temperature 97.7. She is 98% on room air. General description is an elderly female lying in bed in no distress. Respiratory system: Unlabored breathing, clear to auscultation anteriorly. Heart S1, S2. Regular rate and rhythm. Abdomen soft, no tenderness. LABS: White count up to 15.1. DIAGNOSTIC IMPRESSION AND PLAN: Patient with leukocytosis which is multifactorial and this patient did have a pulmonary embolism and pulmonary infarct with initial concern for possible urinary tract infection. However, cultures were negative. She is currently on empiric Rocephin. Patient did have worsening of the white count more likely because of the hydrocortisone patient is on. There is no evidence of any worse infection and we will monitor closely. MMODL / IJN: [id number] /
[2020-04-19] MEDS: LEVOTHYROXINE 125 MCG TAB PO SCH (06:07)
[2020-04-19] MEDS: ACETAMINOPHEN TAB 325 MG TAB PO PRN ×2 (07:13→17:48)
[2020-04-19] MEDS: HYDROCORTISONE 10 MG TAB PO SCH ×3 (07:13→16:45)
[2020-04-19] MEDS: METOPROLOL TARTRATE 50 MG TAB PO SCH ×2 (07:14→20:31)
[2020-04-19] MEDS: 0.9% NACL WITH KCL 40 MEQ/L 1,000 ML IV SCH (07:14)
[2020-04-19] MEDS: PANTOPRAZOLE 40 MG/10 ML VIAL IVP SCH ×2 (08:47→20:31)
[2020-04-19] MEDS: CLOPIDOGREL 75 MG TAB PO SCH (12:12)
--- NOTE | 2020-04-19 15:20 | P.PN ---
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 Patient was started on anti-correlation after which patient started having GI bleed. Patient has multiple other problems including heart failure with EF of around 35-40%. Patient functionality is poor to start with patient is alert and oriented 2 which is her baseline. Patient is also being treated for urinary tract infection so far urine cultures are negative. Infectious disease is following the patient. Patient is presently on Rocephin. Considering her age functionality, GI bleed PE primary care physician discussed with the family and patient and plan is to discharge her hospice on Tuesday. Constitutional: Denied any fatigue denied any fever. Cardio vascular: denied any chest pain, palpitations Gastrointestinal denied any nausea vomiting Pulmonary: Denied any shortness of breath cough Neurologic denied any new focal deficits All inpatient medications were reviewed and appropriate changes in these medications as dictated in the interval history and assessment and plan. Objective - Vital Signs Vital signs: Vital Signs Temp 97.7 F 04/19/20 07:00 Pulse 83 04/19/20 07:00 Resp 18 04/19/20 07:00 BP 122/67 04/19/20 07:00 Pulse Ox 97 04/19/20 07:00 Intake & Output 04/18/20 04/19/20 04/19/20 18:59 06:59 18:59 Intake Total 800 250 Output Total 250 200 Balance -250 600 250 Weight 56 kg Intake: Intake, IV Titration 800 Amount 0.9% NaCl with KCl 40 Meq 800 /l 1,000 ml @ 50 mls/hr IV .Q20H [facility] Rx#: [id number] Oral 200 Other 50 Output: Urine 250 200 Uretheral (Díaz) 250 Other: Voiding Method Indwelling Catheter Indwelling Catheter Indwelling Catheter # Voids 3 # Bowel Movements 3 3 - Exam PHYSICAL EXAMINATION: GENERAL: The patient is alert and oriented x2 which is her baseline, not in any acute distress. Well developed, well nourished. HEENT: Pupils are round and equally reacting to light. EOMI. No scleral icterus. No conjunctival pallor. Normocephalic, atraumatic. No pharyngeal erythema. No thyromegaly. CARDIOVASCULAR: S1 and S2 present. No murmurs, rubs, or gallops. PULMONARY: Chest is clear to auscultation, no wheezing or crackles. ABDOMEN: Soft, nontender, nondistended, normoactive bowel sounds. No palpable organomegaly. MUSCULOSKELETAL: No joint swelling or deformity. EXTREMITIES: No cyanosis, clubbing, or pedal edema. NEUROLOGICAL: Gross neurological examination did not reveal any focal deficits. SKIN: No rashes. - Labs CBC & Chem 7: 04/18/20 11:07 04/16/20 22:33 Assessment and Plan Plan: -Acute PE with the right lower lobe infarction was on anticoagulation and an acute GI bleed after which she had anti-correlation was stopped. 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
[2020-04-19] MEDS: ASPIRIN 81 MG PO SCH (20:31)
--- NOTE | 2020-04-19 23:16 | PN ---
PROGRESS NOTE DATE OF SERVICE: 04/19/2020 REASON FOR FOLLOWUP: 1. UTI. 2. Leukocytosis. INTERVAL HISTORY: Patient is currently afebrile. The patient is hemodynamically stable. She is breathing comfortably on room air. No chest pain or cough. No abdominal pain. No diarrhea. PHYSICAL EXAMINATION: Blood pressure 147/70 with a pulse of 68, temperature 98.2. She is 98% on room air. General description is an elderly female lying in bed in no distress. Respiratory system: Unlabored breathing, clear to auscultation anteriorly. Heart S1, S2. Regular rate and rhythm. Abdomen soft, no tenderness. LABS: No new labs have been obtained today. Cultures have been negative. DIAGNOSTIC IMPRESSION AND PLAN: 1. Patient with leukocytosis which is multifactorial with possible component of urinary tract infection that has been adequately treated, currently off antibiotic. 2. Elevated white count more likely steroid effect. No evidence of any worsening infection. Continue supportive care. MMODL / IJN: [id number] /
[2020-04-20] MEDS: LEVOTHYROXINE 125 MCG TAB PO SCH (06:10)
[2020-04-20 07:14] LABS: Basophils # (A) 0.1 k/uL (0-0.2); Basophils % (A) 0 %; Eosinophils # (A) 0.1 k/uL (0-0.7); Eosinophils % (A) 1 %; Hypochromasia Moderate; Lymphocytes # (A) 2.5 k/uL (1.0-4.8); Lymphocytes % (A) 15 %; MCH 26.9 pg (25.0-35.0); MCHC 29.8 g/dL (31.0-37.0); MCV 90.2 fL (80.0-100.0); Mean Platelet Volume 7.8; Monocytes # (A) 0.5 k/uL (0-1.0); Monocytes % (A) 3 %; Neutrophils # (A) 13.6 k/uL (1.3-7.7); Neutrophils % (A) 80 %; Platelet Count 329 k/uL (150-450); RDW 15.2 % (11.5-15.5); WBC 16.9 k/uL (3.8-10.6)
[2020-04-20 07:16] LABS: HGB 4.3 gm/dL (11.4-16.0)
[2020-04-20 07:17] LABS: HCT 14.4 % (34.0-46.0)
[2020-04-20] MEDS: METOPROLOL TARTRATE 50 MG TAB PO SCH ×2 (07:44→20:26)
[2020-04-20] MEDS: HYDROCORTISONE 10 MG TAB PO SCH ×3 (07:44→15:20)
[2020-04-20] MEDS: PANTOPRAZOLE 40 MG/10 ML VIAL IVP SCH ×2 (07:45→20:26)
[2020-04-20] MEDS: CLOPIDOGREL 75 MG TAB PO SCH (12:06)
[2020-04-20 12:24] VITALS: BP 113/66; PULSE 73; TEMP 98.2
[2020-04-20 13:59] LABS: Basophils # (A) 0.1 k/uL (0-0.2); Basophils % (A) 1 %; Eosinophils # (A) 0.1 k/uL (0-0.7); Eosinophils % (A) 1 %; Hypochromasia Slight; Lymphocytes # (A) 1.9 k/uL (1.0-4.8); Lymphocytes % (A) 13 %; MCH 27.3 pg (25.0-35.0); MCHC 31.1 g/dL (31.0-37.0); MCV 87.8 fL (80.0-100.0); Mean Platelet Volume 7.6; Monocytes # (A) 0.6 k/uL (0-1.0); Monocytes % (A) 4 %; Neutrophils % (A) 81 %; Platelet Count 272 k/uL (150-450); RBC 2.11 m/uL (3.80-5.40); WBC 14.9 k/uL (3.8-10.6)
[2020-04-20] MEDS ORDERED: MORPHINE SULFATE 2 MG/ML SYRINGE IVP PRN (14:32)
--- NOTE | 2020-04-20 14:33 | P.PN ---
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 Patient was started on anti-correlation after which patient started having GI bleed. Patient has multiple other problems including heart failure with EF of around 35-40%. Patient functionality is poor to start with patient is alert and oriented 2 which is her baseline. Patient is also being treated for urinary tract infection so far urine cultures are negative. Infectious disease is following the patient. Patient is presently on Rocephin. Considering her age functionality, GI bleed PE primary care physician discussed with the family and patient and plan is to discharge her hospice on Tuesday. 04/20/2020 Patient had a CBC today morning not sure why this was ordered. Patient is presently comfort measures only. No further testing will be ordered hospice was consulted but they did not evaluate the patient. Patient will be started on morphine for comfort purposes. Patient hemoglobin came back at 4 received 1 unit of transfusion. Further blood transfusions discussed with the daughter who makes medical as per the patient. Aspirin Plavix were discontinued Constitutional: Denied any fatigue denied any fever. Cardio vascular: denied any chest pain, palpitations Gastrointestinal denied any nausea vomiting Pulmonary: Denied any shortness of breath cough Neurologic denied any new focal deficits All inpatient medications were reviewed and appropriate changes in these medications as dictated in the interval history and assessment and plan. Objective - Vital Signs Vital signs: Vital Signs Temp 98.2 F 04/20/20 12:21 Pulse 73 04/20/20 12:21 Resp 16 04/20/20 12:21 BP 113/66 04/20/20 12:21 Pulse Ox 99 04/20/20 12:21 Intake & Output 04/19/20 04/20/20 04/20/20 18:59 06:59 18:59 Intake Total 250 100 410 Output Total 300 1300 Balance -50 -1200 410 Intake: Oral 200 100 100 Blood Product 310 Rc As-1 Unit 310 [id number] Other 50 Output: Urine 300 1300 Uretheral (Díaz) 1000 Other: Voiding Method Indwelling Catheter Indwelling Catheter Indwelling Catheter # Voids 3 # Bowel Movements 2 - Exam PHYSICAL EXAMINATION: GENERAL: The patient is alert and oriented x2 which is her baseline, not in any acute distress. Well developed, well nourished. HEENT: Pupils are round and equally reacting to light. EOMI. No scleral icterus. No conjunctival pallor. Normocephalic, atraumatic. No pharyngeal erythema. No thyromegaly. CARDIOVASCULAR: S1 and S2 present. No murmurs, rubs, or gallops. PULMONARY: Chest is clear to auscultation, no wheezing or crackles. ABDOMEN: Soft, nontender, nondistended, normoactive bowel sounds. No palpable organomegaly. MUSCULOSKELETAL: No joint swelling or deformity. EXTREMITIES: No cyanosis, clubbing, or pedal edema. NEUROLOGICAL: Gross neurological examination did not reveal any focal deficits. SKIN: No rashes. 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 All the rest of the medications can be discontinued upon discharge to hospice except for comfort medications.
[2020-04-20 14:45] LABS: HCT 18.5 % (34.0-46.0); HGB 5.8 gm/dL (11.4-16.0)
[2020-04-20] MEDS: ALPRAZolam 0.25 MG TAB PO PRN (21:38)
--- NOTE | 2020-04-20 23:47 | PN ---
PROGRESS NOTE DATE OF SERVICE: 04/20/2020 REASON FOR FOLLOWUP: Leukocytosis, UTI. INTERVAL HISTORY: The patient is currently afebrile. The patient is breathing comfortably on room air. Denies having any chest pain or cough. No nausea, vomiting. No abdominal pain or diarrhea. PHYSICAL EXAMINATION: Blood pressure 113/66, pulse of 73, temperature 98.2. She is 99% on room air. General description is an elderly female lying in bed in no distress. RESPIRATORY SYSTEM: Unlabored breathing, decreased breath sounds at the bases. No wheeze. HEART: S1, S2. Regular rate and rhythm. ABDOMEN: Soft, no tenderness. LABS: Hemoglobin is 5.8, white count 14.9, BUN of 10, creatinine 0.58. DIAGNOSTIC IMPRESSION AND PLAN: Patient with leukocytosis which is multifactorial main concern for possible urinary tract infection though culture has been negative and no obvious significant anemia and possible hospice which may be appropriate for her current no evidence of any active infection and off antibiotic therapy. We will see the patient as needed. MMODL / IJN: [id number] /
[2020-04-21] MEDS: LORazepam 2 MG/ML INJ IV PRN ×3 (01:49→10:46)
[2020-04-21] MEDS: LEVOTHYROXINE 125 MCG TAB PO SCH (05:31)
[2020-04-21] MEDS: HYDROCORTISONE 10 MG TAB PO SCH ×2 (07:24→10:12)
[2020-04-21] MEDS: PANTOPRAZOLE 40 MG/10 ML VIAL IVP SCH (07:25)
[2020-04-21] MEDS: METOPROLOL TARTRATE 50 MG TAB PO SCH (07:25)
[2020-04-21] MEDS: MORPHINE SULFATE 2 MG/ML SYRINGE IVP PRN ×3 (08:45→11:26)
[2020-04-21 09:18] VITALS: RESP 22
--- NOTE | 2020-04-21 09:38 | P.DS ---
Providers Date of admission: 04/11/20 19:51 Expected date of discharge: 04/21/20 Attending physician: Hayes Patton MD Consults: 04/12/20 12:52 Consult Physician Routine Consulting Provider: Segundo Coronado Consult Reason/Comments: covid?? Do you want consulting provider notified?: Yes 04/12/20 14:50 Consult Physician Routine Consulting Provider: Junior Power Consult Reason/Comments: PE, Pulm infarct Do you want consulting provider notified?: Yes 04/16/20 01:45 Consult Physician Routine Consulting Provider: Rosita Roberson Consult Reason/Comments: Bloody stool Do you want consulting provider notified?: Already Contacted Primary care physician: Paris Dawson - Discharge Diagnosis(es) (1) Toxic encephalopathy Current Visit: Yes Status: Acute (2) Sepsis due to gram-negative UTI Current Visit: Yes Status: Acute (3) Alzheimer's dementia Current Visit: No Status: Acute Hospital Course: Monica Prescott is an 89-year-old female with past medical history of coronary artery disease, dementia, hypertension number chronic back pain who presented from [facility] with fever, diminished by mouth intake, and decreased mental status. She was brought in with a temperature of 100, white count of 25, ESR 66, and d-dimer of 9.56. CT angiogram consistent with right lower lobe pulmonary embolism and pulmonary infarction. Patient was just recently treated for UTI and discharged approximately 2 weeks prior to admission. Patient was admitted to medicine and seen by infectious disease, and pulmonology. She was started on broad-spectrum antibiotics for suspected UTI as well as IV heparin. Patient did initially improve and was transitioned to xarelto. Subsequently she did experience multiple episodes of melena and hematochezia, with drop in her hemoglobin as low as 4.8. Upon discussion with family regarding goals of care, decision was made to transition to hospice. Currently, she remains anemic and dyspneic although vitals are stable. She is discharged to hospice and will use morphine and ativan symptomatically for dyspnea and restlessness. Physical exam Gen.: Elderly female in mild distress HEENT: Mucous membranes moist CV: Regular rate and rhythm Pulmonary: Increased effort, clear throughout Neuro: Lethargic, rouses to voice Patient Condition at Discharge: Stable Plan - Discharge Summary Discharge Rx Participant: No New Discharge Prescriptions: Discontinued RX: Melatonin 10 mg PO HS@2100 RX: Aspirin 81 mg PO HS@2100 RX: risperiDONE [RisperDAL] 0.25 mg PO HS@2100 RX: Mirtazapine [Remeron] 15 mg PO HS@2100 RX: Potassium Chloride [Klor-Con 20] 60 meq PO DAILY@1700 RX: Fludrocortisone [Florinef] 0.1 mg PO BID-W/MEALS RX: Ergocalciferol [Vitamin D2 (DRISDOL)] 50,000 unit PO FR@1200 RX: predniSONE 7.5 mg PO W/BRKFST RX: Clopidogrel [Plavix] 75 mg PO DAILY@1200 RX: Liothyronine Sodium 50 mcg PO AC-BRKFST RX: Hydrocortisone [Cortef] 10 mg PO BID-W/MEALS@,12 RX: Hydrocortisone [Cortef] 5 mg PO DAILY@1700 RX: Levothyroxine Sodium [Synthroid] 62.5 mcg PO MOTUWETH RX: Levothyroxine Sodium [Synthroid] 125 mcg PO SUFRSA RX: Pantoprazole [Protonix] 40 mg PO AC-BRKFST tablet.dr RX: Acetaminophen Tab [Tylenol] 650 mg PO Q6HR PRN tab PRN Reason: Mild Pain Or Fever > 100.5 RX: ALPRAZolam [Xanax] 0.25 mg PO DAILY PRN #3 tab PRN Reason: Anxiety Liquacel 30 ml PO BID@0800,1700 Orgain Protein Shake 1 can PO DAILY@0600 RX: amLODIPine [Norvasc] 2.5 mg PO DAILY@1700 bisacodyL [Dulcolax] 10 mg RECTAL DAILY PRN PRN Reason: Constipation Ciprofloxacin HCl [Cipro] 250 mg PO Q12HR@0800,2000 Lactose-Reduced Food [Ensure Plus] 120 ml PO TID@1200,1700,2100 Magnesium Hydroxide [Milk of Magnesia] 2,400 mg PO DAILY PRN PRN Reason: Constipation RX: Megestrol Acetate 400 mg PO BID@0800,1700 Na Phos,M-B/Na Phos,Di-Ba [Fleet Adult] 133 ml RECTAL DAILY PRN PRN Reason: Constipation Nystatin 100,000 Unit/ml Susp [Mycostatin Oral Susp] 5 ml PO QID Follow up Appointment(s)/Referral(s): Paris Dawson DO [Primary Care Provider] - 1-2 days Activity/Diet/Wound Care/Special Instructions: If patient discharges over the weekend to Hospice House, call [phone] Discharge Disposition: [facility]CH TO HOSPICE MED FACILTY
--- NOTE | 2020-04-22 13:01 | CDI ---
Documentation Clarification Form Date: 04/22/2020 11:45:00 AM From: France Bullock If you have a question about this query, please contact Nori Desai Cab Supervisor at [phone] between 8am and 5pm.seble Bullock Phone: Admit Date: 04/11/2020 07:51:00 PM Patient Name: Monica Prescott Visit Number: [id number] Discharge Date: 04/21/2020 11:40:00 AM ATTENTION: The Clinical Documentation Specialists (CDI) and [facility] Coding Staff appreciate your assistance in clarifying documentation. Please respond to the clarification below the line at the bottom and electronically sign. The CDI & [facility] Coding staff will review the response and follow-up if needed. Please note: Queries are made part of the Legal Health Record. If you have any questions, please contact the author of this message via ITS. Dr. Hayes Patton A diagnosis of UTI catheter associated is documented by ID in 04/13 PN. ED note "she has an indwelling de paz catheter and has had a total of about 100 ml in the past 24 hours. " Please clarify if UTI/sepsis is catheter associated. History/Risk Factors: Per documentation in the _ED notes this patient was admitted with an indwelling De Paz catheter/a suprapubic catheter/ urostomy. Treatment: Broad spectrum antibiotics, Rocephin In your professional opinion, can you please clarify the etiology of the UTI, if known? De Paz catheter Suprapubic catheter Urostomy UTI not related to catheter/urostomy Other condition, please specify Unable to determine De Paz catheter MTDD
== END 2020-04-21 11:40 | disposition hospice, inpatient (51) | DRG 698 ==
LOC: EC 17:45 → 4SSUR 19:51
PROVIDERS: ADMIT Family Medicine; ATTEND Family Medicine
PROC: 30233N1 Transfusion of Nonautologous Red Blood Cells into Peripheral Vein, Percutaneous Approach (ICD-10-PCS; principal; 2020-04-20)
DX: T83.518A Infection and inflammatory reaction due to other urinary catheter, initial encounter (principal); A41.50 Gram-negative sepsis, unspecified; G92 Toxic encephalopathy; I26.99 Other pulmonary embolism without acute cor pulmonale; E44.1 Mild protein-calorie malnutrition; E27.2 Addisonian crisis; E27.40 Unspecified adrenocortical insufficiency; N39.0 Urinary tract infection, site not specified; K62.5 Hemorrhage of anus and rectum; D64.9 Anemia, unspecified; E03.9 Hypothyroidism, unspecified; E86.0 Dehydration; E87.6 Hypokalemia; F02.80 Dementia in other diseases classified elsewhere, unspecified severity, without behavioral disturbance, psychotic disturbance, mood disturbance, and anxiety; L89.159 Pressure ulcer of sacral region, unspecified stage; G30.9 Alzheimer's disease, unspecified; L89.611 Pressure ulcer of right heel, stage 1; G89.29 Other chronic pain; M54.9 Dorsalgia, unspecified; I11.0 Hypertensive heart disease with heart failure; I44.7 Left bundle-branch block, unspecified; I27.20 Pulmonary hypertension, unspecified; Z51.5 Encounter for palliative care; Z66 Do not resuscitate; Z20.828 Contact with and (suspected) exposure to other viral communicable diseases; I25.10 Atherosclerotic heart disease of native coronary artery without angina pectoris; I50.9 Heart failure, unspecified; K57.90 Diverticulosis of intestine, part unspecified, without perforation or abscess without bleeding; M35.3 Polymyalgia rheumatica; R73.03 Prediabetes; I83.93 Asymptomatic varicose veins of bilateral lower extremities; I48.91 Unspecified atrial fibrillation; Z74.01 Bed confinement status; Z79.02 Long term (current) use of antithrombotics/antiplatelets; Z79.82 Long term (current) use of aspirin; Z79.890 Hormone replacement therapy; Z79.899 Other long term (current) drug therapy; Z81.8 Family history of other mental and behavioral disorders; Z82.49 Family history of ischemic heart disease and other diseases of the circulatory system; Z86.010 Personal history of colon polyps; Z87.440 Personal history of urinary (tract) infections; Z87.01 Personal history of pneumonia (recurrent); Z90.710 Acquired absence of both cervix and uterus; Z95.5 Presence of coronary angioplasty implant and graft; Z96.1 Presence of intraocular lens; Z98.41 Cataract extraction status, right eye; Z98.42 Cataract extraction status, left eye; Z79.51 Long term (current) use of inhaled steroids; Z98.51 Tubal ligation status; Z88.5 Allergy status to narcotic agent; Z88.8 Allergy status to other drugs, medicaments and biological substances; Z83.6 Family history of other diseases of the respiratory system
CPT/HCPCS: 36415; 71045; 71275; 80048; 80051; 80053; 81001; 83615; 83735; 84132; 85025; 85027; 85379; 85610; 85652; 85730; 86140; 86850; 86900; 86901; 86920; 87040; 87086; 93005; 93306; 96361; 96365; 96375; 99285